=== PATIENT | male | born 1945 | race Caucasian/White ===

== ENCOUNTER 2022-11-26 20:14 | Emergency (ER) | payer MEDICARE ==
[~2022-11-26] VITALS: Ht 180.3 cm; Wt 86.4 kg
[~2022-11-26 20:14] MED LIST: HYDR-3927 PO; LISI10TA27 PO; LITH300C PO; METO-395 PO; MIRT-87 PO; NALT50TA PO; OLAN2.5T28 PO; OMEP40CA21 PO; PARO10TA4 PO; THIA100T66 PO; VENL150C58 PO; VENL37.55 PO
--- NOTE | 2022-11-26 22:33 | NUR ---
pt stated suicidal thoughts. pt's significant other at bedside with pt.
[2022-11-26] MEDS ORDERED: LORA-269 PO (23:07)
[2022-11-26] MEDS: LORazepam 1 MG tablet PO ONE ×2 (23:16→23:33)
[2022-11-26] MEDS ORDERED: LORazepam 0.5 MG tablet PO PRN (23:30)
[2022-11-26 23:38] VITALS: BP 127/100
== END 2022-11-26 23:40 | disposition home or self-care (01) ==
LOC: ER 20:15
DX: F10.930 Alcohol use, unspecified with withdrawal, uncomplicated (principal); Z79.899 Other long term (current) drug therapy; Z79.1 Long term (current) use of non-steroidal anti-inflammatories (NSAID); Z79.2 Long term (current) use of antibiotics
CPT/HCPCS: 99283

== ENCOUNTER 2022-12-20 07:03 | Emergency (ER) | payer MEDICARE ==
[~2022-12-20] VITALS: Ht 177.8 cm; Wt 87.0 kg
[~2022-12-20 07:03] MED LIST changes: +LORA-269 PO
[2022-12-20 08:08] LABS: BASOPHILS % (AUTO) 0.8 % (0-1); EOSINOPHILS # (AUTO) 0.1 X10'3 (0-0.9); EOSINOPHILS % (AUTO) 2.6 % (0-6); HEMATOCRIT 37.8 % (42.0-52.0); HEMOGLOBIN 12.3 g/dl (14.0-17.9); LYMPHOCYTES # (AUTO) 1.7 X10'3 (1.1-4.8); LYMPHOCYTES % (AUTO) 33.2 % (21-51); MEAN CORPUSCULAR HEMOGLOBIN 31.5 PG (27.0-31.0); MEAN CORPUSCULAR HGB CONC 32.6 g/dL (33.0-36.5); MEAN CORPUSCULAR VOLUME 96.6 FL (78-98); MONOCYTES # (AUTO) 0.5 X10'3 (0-0.9); NEUTROPHILS # (AUTO) 2.7 X10'3 (1.8-7.7); NEUTROPHILS % (AUTO) 53.4 % (42-75); PLATELET COUNT 202 X10'3 (140-440); RED BLOOD COUNT 3.92 X10'6 (4.70-6.10); RED CELL DISTRIBUTION WIDTH 16.5 % (11.5-14.5); WHITE BLOOD COUNT 5.1 X10'3 (4.5-11.0)
[2022-12-20 08:24] LABS: ALANINE AMINOTRANSFERASE 35 U/L (12-78); ALBUMIN 3.6 G/DL (3.4-5.0); ALBUMIN/GLOBULIN RATIO 1.2 (1.1-1.5); ALKALINE PHOSPHATASE 102 IU/L (46-116); ANION GAP 7 (8-16); ASPARTATE AMINO TRANSFERASE 25 U/L (10-37); BILIRUBIN,TOTAL 0.2 MG/DL (0.1-1.0); BLOOD UREA NITROGEN 15 MG/DL (7-18); BUN/CREATININE RATIO 15.3 (10.0-20.0); CALCIUM 9.7 MG/DL (8.5-10.1); CHLORIDE 106 MMOL/L (99-107); CREATININE 0.98 MG/DL (0.60-1.10); GLUCOSE 106 MG/DL (70-104); POTASSIUM 4.1 MMOL/L (3.5-5.1); SODIUM 139 MMOL/L (135-145); TOTAL CARBON DIOXIDE 26.1 MMOL/L (24-32); TOTAL PROTEIN 6.7 G/DL (6.4-8.2); eGFR 74 ML/MIN
[2022-12-20] MEDS ORDERED: acetaminophen 1,000mg/100ml IV 100 ML IV SCH (08:25)
[2022-12-20 09:09] VITALS: BP 131/83
== END 2022-12-20 09:12 | disposition home or self-care (01) ==
LOC: ER 07:04
DX: S80.01XA Contusion of right knee, initial encounter (principal); S09.8XXA Other specified injuries of head, initial encounter; F31.9 Bipolar disorder, unspecified; W19.XXXA Unspecified fall, initial encounter; Y93.89 Activity, other specified; Y92.89 Other specified places as the place of occurrence of the external cause; Y99.8 Other external cause status
CPT/HCPCS: 36415; 70450; 71045; 72125; 73560; 80053; 83880; 84484; 85025; 93005; 96374; 99285; J0131

== ENCOUNTER 2022-12-21 07:22 | Emergency (ER) | payer MEDICARE ==
[~2022-12-21] VITALS: Ht 177.8 cm; Wt 80.0 kg
[2022-12-21 07:57] LABS: BASOPHILS % (AUTO) 0.4 % (0-1); EOSINOPHILS # (AUTO) 0.1 X10'3 (0-0.9); EOSINOPHILS % (AUTO) 0.8 % (0-6); HEMOGLOBIN 13.6 g/dl (14.0-17.9); LYMPHOCYTES # (AUTO) 1.4 X10'3 (1.1-4.8); LYMPHOCYTES % (AUTO) 17.8 % (21-51); MEAN CORPUSCULAR HEMOGLOBIN 31.8 PG (27.0-31.0); MEAN CORPUSCULAR HGB CONC 33.1 g/dL (33.0-36.5); MEAN PLATELET VOLUME 8.4 FL (7.4-10.4); MONOCYTES # (AUTO) 0.5 X10'3 (0-0.9); MONOCYTES % (AUTO) 6.1 % (2-12); NEUTROPHILS # (AUTO) 5.9 X10'3 (1.8-7.7); NEUTROPHILS % (AUTO) 74.9 % (42-75); PLATELET COUNT 212 X10'3 (140-440); RED BLOOD COUNT 4.26 X10'6 (4.70-6.10); RED CELL DISTRIBUTION WIDTH 16.7 % (11.5-14.5); WHITE BLOOD COUNT 7.9 X10'3 (4.5-11.0)
[2022-12-21] MEDS ORDERED: acetaminophen 1,000mg/100ml IV 100 ML IV ONE (08:00)
[2022-12-21] MEDS ORDERED: ondansetron/PF 4mg/2ml inj IV ONE (08:00)
[2022-12-21] MEDS ORDERED: normal saline 1000ML IV soln IVB ONE (08:00)
--- NOTE | 2022-12-21 08:11 | NUR ---
Attempted to put an IV, no succes at this time
[2022-12-21 08:23] LABS: ALANINE AMINOTRANSFERASE 35 U/L (12-78); ALBUMIN 3.9 G/DL (3.4-5.0); ALBUMIN/GLOBULIN RATIO 1.1 (1.1-1.5); ALKALINE PHOSPHATASE 108 IU/L (46-116); ANION GAP 9 (8-16); ASPARTATE AMINO TRANSFERASE 22 U/L (10-37); BILIRUBIN,TOTAL 0.5 MG/DL (0.1-1.0); BLOOD UREA NITROGEN 12 MG/DL (7-18); BUN/CREATININE RATIO 12.2 (10.0-20.0); CALCIUM 9.9 MG/DL (8.5-10.1); CHLORIDE 103 MMOL/L (99-107); CREATININE 0.98 MG/DL (0.60-1.10); GLUCOSE 108 MG/DL (70-104); MAGNESIUM 2.1 MG/DL (1.5-2.4); POTASSIUM 4.3 MMOL/L (3.5-5.1); SODIUM 139 MMOL/L (135-145); TOTAL CARBON DIOXIDE 26.6 MMOL/L (24-32); TOTAL PROTEIN 7.3 G/DL (6.4-8.2); eGFR 74 ML/MIN
--- NOTE | 2022-12-21 08:25 | NUR ---
BP elevated, reported to Dr. Kate. Addendum: 12/21/22 at 0833 by BALDO [address] Kate if we are going to have head CT done, he has not cofirmed it to me.
--- NOTE | 2022-12-21 08:39 | NUR ---
Patient reported dizziness, still has headache, and nausea. Zofran IV and Tylenol IV given. Dr. Kate were notified about these. I also lt him know again that BP reading has been high. No new order received at this time.
[2022-12-21] MEDS ORDERED: ketorolac trometh. 30mg/ml inj. IV ONE (09:30)
[2022-12-21 10:08] LABS: CLARITY,URINE CLEAR (Clear); COLOR,URINE YELLOW (Yellow); GLUCOSE, URINE NEGATIVE (Neg); KETONES,URINE NEGATIVE (Neg); LEUKOCYTE ESTERASE ,URINE NEGATIVE (Neg); NITRITES, URINE NEGATIVE (Neg); OCCULT BLOOD,URINE NEGATIVE (Neg); PH,URINE 7.5 (4.8-8.0); PROTEIN,URINE NEGATIVE (Neg); UROBILINOGEN,URINE 0.2 E.U/dL (0.2-1.0)
[2022-12-21 10:09] LABS: UA COLLECTION TYPE NON-SPECIFIED
[2022-12-21 10:53] VITALS: BP 155/104
== END 2022-12-21 10:55 | disposition home or self-care (01) ==
LOC: ER 07:22
DX: R51.9 Headache, unspecified (principal); F31.9 Bipolar disorder, unspecified; Z79.899 Other long term (current) drug therapy; W19.XXXA Unspecified fall, initial encounter; Y93.89 Activity, other specified; Y92.89 Other specified places as the place of occurrence of the external cause; Y99.8 Other external cause status
CPT/HCPCS: 36415; 71045; 80053; 81003; 83735; 83880; 84145; 84484; 85025; 93005; 96374; 96375; 99285; J0131; J1885; J2405; J7030; A4615

== ENCOUNTER 2022-12-26 | Inpatient (IN) | payer MEDICARE ==
[~2022-12-26] VITALS: Ht 167.6 cm; Wt 89.1 kg
[~2022-12-26] MED LIST changes: +CHLO25CA10 PO
--- NOTE | 2022-12-26 00:30 | NUR ---
pt unable to participate in assessments due to current state of ETOH intoxication.
[2022-12-26 01:08] LABS: ALANINE AMINOTRANSFERASE 33 U/L (12-78); ALBUMIN 3.5 G/DL (3.4-5.0); ALBUMIN/GLOBULIN RATIO 1.2 (1.1-1.5); ALKALINE PHOSPHATASE 98 IU/L (46-116); ANION GAP 9 (8-16); ASPARTATE AMINO TRANSFERASE 19 U/L (10-37); BILIRUBIN,TOTAL 0.3 MG/DL (0.1-1.0); BLOOD UREA NITROGEN 15 MG/DL (7-18); BUN/CREATININE RATIO 15.5 (10.0-20.0); CALCIUM 8.8 MG/DL (8.5-10.1); CHLORIDE 110 MMOL/L (99-107); CREATININE 0.97 MG/DL (0.60-1.10); GLUCOSE 113 MG/DL (70-104); POTASSIUM 3.2 MMOL/L (3.5-5.1); SODIUM 146 MMOL/L (135-145); TOTAL CARBON DIOXIDE 26.7 MMOL/L (24-32); TOTAL PROTEIN 6.4 G/DL (6.4-8.2); eGFR 75 ML/MIN
[2022-12-26 01:16] LABS: BASOPHILS % (AUTO) 0.5 % (0-1); EOSINOPHILS % (AUTO) 0.4 % (0-6); HEMATOCRIT 37.4 % (42.0-52.0); HEMOGLOBIN 12.3 g/dl (14.0-17.9); LYMPHOCYTES # (AUTO) 1.9 X10'3 (1.1-4.8); LYMPHOCYTES % (AUTO) 38.5 % (21-51); MEAN CORPUSCULAR HEMOGLOBIN 31.6 PG (27.0-31.0); MEAN CORPUSCULAR HGB CONC 32.9 g/dL (33.0-36.5); MEAN PLATELET VOLUME 8.1 FL (7.4-10.4); MONOCYTES # (AUTO) 0.4 X10'3 (0-0.9); MONOCYTES % (AUTO) 9.2 % (2-12); NEUTROPHILS # (AUTO) 2.5 X10'3 (1.8-7.7); NEUTROPHILS % (AUTO) 51.4 % (42-75); PLATELET COUNT 171 X10'3 (140-440); RED CELL DISTRIBUTION WIDTH 16.6 % (11.5-14.5); WHITE BLOOD COUNT 4.8 X10'3 (4.5-11.0)
[2022-12-26 01:17] LABS: ETHANOL 0.132 GM/DL (0.0-0.010)
[2022-12-26] MEDS ORDERED: chlordiazePOXIDE 25mg capsule PO ONE ×2 (02:30→11:20)
[2022-12-26] MEDS ORDERED: ondansetron 4mg rapidly disintigrating tab PO STA (02:39)
[2022-12-26] MEDS ORDERED: POTASSIUM BICARB 20meq eff tab 20 MEQ TABLET.EFF PO ONE (05:55)
[2022-12-26 06:04] LABS: CLARITY,URINE CLOUDY (Clear); COLOR,URINE YELLOW (Yellow); GLUCOSE, URINE NEGATIVE (Neg); KETONES,URINE NEGATIVE (Neg); LEUKOCYTE ESTERASE ,URINE NEGATIVE (Neg); NITRITES, URINE POSITIVE (Neg); OCCULT BLOOD,URINE TRACE-INTACT (Neg); PROTEIN,URINE TRACE mg/dl (Neg); UROBILINOGEN,URINE 0.2 E.U/dL (0.2-1.0)
[2022-12-26 06:20] LABS: URINE AMPHETAMINE SCREEN NEGATIVE (Neg); URINE BARBITUATE SCREEN NEGATIVE (Neg); URINE BENZODIAZEPINES SCREEN POSITIVE (Neg); URINE CANNABINOID SCREEN NEGATIVE (Neg); URINE COCAINE SCREEN NEGATIVE (Neg); URINE METHADONE SCREEN NEGATIVE (Neg); URINE OPIATE SCREEN NEGATIVE (Neg); URINE PHENCYCLIDINE SCREEN NEGATIVE (Neg)
[2022-12-26 06:34] LABS: UA COLLECTION TYPE URINAL
[2022-12-26 06:36] LABS: BACTERIA,URINE 4+ /HPF (Neg); MUCUS STRANDS MANY /LPF (Neg); SQUAMOUS EPITHELIAL CELL,UR FEW /LPF (FEW)
[2022-12-26 06:38] LABS: CAL OXALATE CRYSTALS 3+ /HPF (NEGATIVE)
--- NOTE | 2022-12-26 06:44 | NUR ---
RN WILL COMPLETE COVID TEST AND GET RESULT PRIOR TO TRANFERRING PT TO OVERFLOW.
[2022-12-26] MEDS: lithium carbonate 150mg capsule PO SCH ×3 (07:18→20:10)
[2022-12-26] MEDS: pantoprazole 40mg Tablet.DR PO SCH (07:23)
[2022-12-26] MEDS: thiamine 100mg tablet PO SCH (07:24)
[2022-12-26] MEDS: venlafaxine XR 75mg capsule (Q24H) PO SCH (07:24)
[2022-12-26] MEDS: hydrOXYzine 25 MG tablet PO SCH ×3 (07:24→20:11)
[2022-12-26] MEDS: metoprolol succinate 25mg (24-HOUR) SR. Tablet PO SCH (07:25)
[2022-12-26] MEDS: lisinopril 10 MG tablet PO SCH (07:25)
--- NOTE | 2022-12-26 07:26 | NUR ---
RN UNABLE TO SCAN MEDS D/T WOW OUT OF POWER. WOW CHARGED. MEDS SCANNED MANUALLY. PT IS MENTAL [facility]ALTH 5150.
--- NOTE | 2022-12-26 07:31 | NUR ---
RN NOTIFIED NEGRO AND WILL TRANSFER PT TO [facility]FLOW AT THIS TIME.
--- NOTE | 2022-12-26 07:35 | NUR ---
Recieved pt. from ER and transfered to Bed 26. Pt. is ambulatory, no s/sx of distress.
[2022-12-26] MEDS: PARoxetine 10mg tablet PO SCH (08:43)
[2022-12-26] MEDS: venlafaxine XR 37.5mg cap (Q24H) PO SCH (08:44)
--- NOTE | 2022-12-26 09:00 | NUR ---
Pt. c/o nausea, had an incontinent episode of urine. N.O recieved Zofran PO.
[2022-12-26] MEDS ORDERED: ondansetron 4mg rapidly disintigrating tab PO PRN (09:05)
--- NOTE | 2022-12-26 09:15 | NUR ---
Pt. found to have tremors BUE, recieved rerport that pt. has Hx od DT. Provider notified, CWA initiated.
--- NOTE | 2022-12-26 11:00 | NUR ---
Pt. awake CWA continues, pt. reports diarrhea, provider pending.
--- NOTE | 2022-12-26 11:30 | NUR ---
N.O recieved Librium based on CWA scores and Keflex recieved for UTI, lithium labs to be drawn.
--- NOTE | 2022-12-26 12:02 | NUR ---
Spoke to provider, staff to review BM, pt. advised, and hat in place.
[2022-12-26] MEDS: cephalexin 500mg capsule PO SCH ×2 (12:03→20:10)
--- NOTE | 2022-12-26 14:34 | NUR ---
Pt. in bed resting with hisa eyes open, CWA continues, scant loose BM. No distress noted.
--- NOTE | 2022-12-26 15:57 | NUR ---
Pt. standing near bed, no distress noted, CWA continues, he was given a snack.
--- NOTE | 2022-12-26 17:45 | NUR ---
Pt. resting, CWA continues, states "I feel a little better" [facility]
--- NOTE | 2022-12-26 19:04 | NUR ---
Patient is oriented to person and place not time, he does not know much about his situation. Patient at 95 percent of his meal. Generalized abdominal discomfort. Diarrhea earlier, none now. Patient is cooperative. He denies S/I, H/I or any hallucinations.
[2022-12-26] MEDS: mirtazapine 15mg tablet PO SCH (20:10)
[2022-12-26] MEDS: OLANZapine 2.5MG tablet PO SCH (20:11)
--- NOTE | 2022-12-26 20:15 | NUR ---
Patient is awake, good color. W/D. He remains mildly delusiona. Patient believes that he is to be transported to [facility]. At this time there is no plan for admission there.
[2022-12-26] MEDS: naltrexone 50mg tablet PO SCH (20:22)
--- NOTE | 2022-12-26 21:30 | NUR ---
Patient is sleeping quietly no distress noted. W/D, good color. No alcohol withdrawl noted. When patient awakens this communications writer will continue with alcohol withdrawl eval sheet.
--- NOTE | 2022-12-26 22:27 | NUR ---
Patient is sleeping in a low fowlers position with his knees flexed. No distress noted.
--- NOTE | 2022-12-26 23:21 | NUR ---
Patient awoke, made his bed, he then returned to sleep.
--- NOTE | 2022-12-27 00:31 | NUR ---
Patient awakens, he is reoriented to place and situation. Patient requested a snack, this will be given.
[2022-12-27] MEDS ORDERED: chlordiazePOXIDE 25mg capsule PO ONE (01:30)
--- NOTE | 2022-12-27 01:30 | NUR ---
Patient is restless, can't sleep. PO Librium 50 mg ordered.
--- NOTE | 2022-12-27 02:46 | NUR ---
Patient is laying in bed now. Awake, no distress.
--- NOTE | 2022-12-27 03:17 | NUR ---
Patient was up to bathroom. Back to bed without redirection.
--- NOTE | 2022-12-27 04:15 | NUR ---
Patient is awake and well oriented now. Patient tells this press writer that he has recently been in a manic phase, he self medicated with alcohol and became suicidal. He is linear at the time of this interview. Patient states he hopes to be admited to Behavioral Health at [facility].
--- NOTE | 2022-12-27 05:06 | NUR ---
This senior underwriter spoke with Dr. Cantu, ER/MD. She agrees it is ok to stop Alcohol Withdrawl Assessment. If patient develops alcohol withdrawl symptoms advise ER .
--- NOTE | 2022-12-27 05:59 | NUR ---
Patient is sleeping quietly. No distress.
--- NOTE | 2022-12-27 07:00 | NUR ---
Pt. awake and ambulating without difficulty, no complaints.
[2022-12-27] MEDS: cephalexin 500mg capsule PO SCH ×2 (07:39→20:18)
[2022-12-27] MEDS: metoprolol succinate 25mg (24-HOUR) SR. Tablet PO SCH (07:40)
[2022-12-27] MEDS: venlafaxine XR 75mg capsule (Q24H) PO SCH (07:41)
[2022-12-27] MEDS: lithium carbonate 150mg capsule PO SCH ×2 (07:41→20:18)
[2022-12-27] MEDS: venlafaxine XR 37.5mg cap (Q24H) PO SCH (07:41)
[2022-12-27] MEDS: thiamine 100mg tablet PO SCH (07:41)
[2022-12-27] MEDS: PARoxetine 10mg tablet PO SCH (07:42)
[2022-12-27] MEDS: pantoprazole 40mg Tablet.DR PO SCH (07:42)
[2022-12-27] MEDS: lisinopril 10 MG tablet PO SCH (07:42)
[2022-12-27] MEDS: hydrOXYzine 25 MG tablet PO SCH ×3 (07:42→20:18)
--- NOTE | 2022-12-27 09:00 | NUR ---
Pt. awake and ambulating around the unit, no distress noted.
--- NOTE | 2022-12-27 11:01 | NUR ---
Pt. asleep and resting on his Lt. side, no distress noted.
--- NOTE | 2022-12-27 12:55 | NUR ---
Pt. awake and walking around the unit. Pt. advised he was accepted for placement.
--- NOTE | 2022-12-27 16:20 | NUR ---
Pt. transfered to [facility] with all personal belongings accounted for and sent with pt. Pt. left the unit at 1620 via with staff.
--- NOTE | 2022-12-27 16:25 | NUR ---
Admission Note: Pt. was transferred to the unit from [facility] in a wheelchair accompanied by staff and security. Pt's belongings were inventoried by [email or web address] and a safety check was completed. A two RN skin check was completed, and pt. presents with some bruising on his bilateral arms, however no open areas or wounds were observed. Pt. showered and re-dressed in clean scrubs, however required some assistance from staff r/t unsteadiness on his feet. A yellow fall band was placed on pt, he had a recent fall and hit his head approximately one week ago. Pt. is on a 5150 for DTS. Per 5150: Pt's called 911 and reported the he was making suicidal statements and held an air soft gun to his chin. Pt. was placed on [employer] Assessment monitoring r/t a history of alcohol withdrawal s/s. His last drink was two days ago and pt. reports he usually drinks one-half pint of karie twice a week. Pt. is currently being treated for a UTI.
[2022-12-27] MEDS ORDERED: acetaminophen 325mg tablet PO PRN ×2 (16:45)
[2022-12-27] MEDS ORDERED: mag hydrox/Alum hydrox/simeth 30ml oral suspension PO PRN (16:45)
[2022-12-27] MEDS ORDERED: loperamide 2mg capsule PO PRN (16:45)
[2022-12-27] MEDS ORDERED: magnesium hydroxide 30ml (MOM) UD suspension PO PRN (16:45)
[2022-12-27 16:59] VITALS: BP 161/82
--- NOTE | 2022-12-27 18:15 | NUR ---
Per Dr. Victoria, CIWA Assessment is to be completed only one-time per shift as pt. scored a two on his initial assessment, endorsed to Noc shift. Also, pt. scored as a high risk on the [place] Suicide Risk Assessment, however he is able to contract for safety on the unit and Q 15min safety checks were ordered by Dr. Victoria.
[2022-12-27 19:00] VITALS: BP 141/79
[2022-12-27] MEDS: OLANZapine 2.5MG tablet PO SCH (20:18)
[2022-12-27] MEDS: mirtazapine 15mg tablet PO SCH (20:19)
[2022-12-27] MEDS: naltrexone 50mg tablet PO SCH (20:20)
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
[2022-12-28 08:00] VITALS: BP 125/78
[2022-12-28 08:11] LABS: HEMOGLOBIN A1C 5.8 % (4.5-6.2)
[2022-12-28 08:39] LABS: CHOL/HDL RATIO 3.3 (0.00-4.99); CHOLESTEROL 170 MG/DL (0-200); HDL CHOLESTEROL 52 MG/DL (35-60); LDL CHOLESTEROL 90 MG/DL (50-100); TRIGLYCERIDES 191 MG/DL (20-135)
[2022-12-28] MEDS: cephalexin 500mg capsule PO SCH ×2 (08:58→20:35)
[2022-12-28] MEDS: pantoprazole 40mg Tablet.DR PO SCH (08:58)
[2022-12-28] MEDS: venlafaxine XR 37.5mg cap (Q24H) PO SCH ×2 (08:58→09:12)
[2022-12-28] MEDS: hydrOXYzine 25 MG tablet PO SCH ×3 (08:58→20:35)
[2022-12-28] MEDS: venlafaxine XR 75mg capsule (Q24H) PO SCH (08:58)
[2022-12-28] MEDS: metoprolol succinate 25mg (24-HOUR) SR. Tablet PO SCH (08:59)
[2022-12-28] MEDS: PARoxetine 10mg tablet PO SCH (08:59)
[2022-12-28] MEDS: thiamine 100mg tablet PO SCH (08:59)
[2022-12-28] MEDS: lisinopril 10 MG tablet PO SCH (08:59)
[2022-12-28] MEDS: lithium carbonate 150mg capsule PO SCH ×2 (08:59→20:35)
[2022-12-28] MEDS ORDERED: OLANZAPINE 5 MG TABLET PO PRN (15:15)
[2022-12-28] MEDS ORDERED: hydrOXYzine 25 MG tablet PO PRN (15:15)
--- NOTE | 2022-12-28 15:59 | NUR ---
Nursing Progress Note: Problem : Pt. was transferred to the unit from [facility]. Pt. is on a 5150 for DTS. Per 5150: Pt's called 911 and reported the he was making suicidal statements and held an air soft gun to his chin. Pt. was placed on CIWA Assessment monitoring r/t a history of alcohol withdrawal s/s. His last drink was two days ago and pt. reports he usually drinks one-half pint of karie twice a week. Pt. is currently being treated for a UTI. Interventions : Maintained a safe and supportive environment, ensured contract for safety, provided clear and simple instructions, monitored for confusion and provided reorientation as needed, maintained fall precautions, and maintained Q 15min safety checks. Response : Received pt. sleeping in bed at the beginning of the shift, he was awoken and required direction in order to attend breakfast in the Group Room. After breakfast, pt. remained up in the Group Room watching TV with others, however it was noted that he kept falling asleep while sitting up in the chair. Pt. finally retreated back to his room and was able to nap, per sleep hours he only slept approximately four hours last night. This sql report writer completed ordered CIWA Assessment and pt. does not appear to be exhibiting any alcohol withdrawal s/s. Pt. does present with some confusion and intermittently wanders throughout the day, forgetting where his room is, and requiring redirection with effectiveness. 1:1 was completed later at bedside, pt. denies any current S/I, H/I, A/V/GODDARD, and no delusional statements were made. He does endorse some anxiety, and upon further questioning reports that it is related to the recent stressors in his life. Pt. was observed to be interacting appropriately with others in the Group Room and napping intermittently during the shift. Fall precautions remain in place. Plan : Pt. requires interruption of current crisis and a safe and supportive environment.
[2022-12-28 19:26] VITALS: BP 111/71
[2022-12-28] MEDS: OLANZapine 2.5MG tablet PO SCH (20:35)
[2022-12-28] MEDS: mirtazapine 15mg tablet PO SCH (20:36)
[2022-12-28] MEDS: naltrexone 50mg tablet PO SCH (20:36)
--- NOTE | 2022-12-28 23:41 | NUR ---
Nursing Progress Note: Problem : Pt. was transferred to the unit from ER [facility]. Pt. is on a 5150 for DTS. Per 5150: Pt's called 911 and reported the he was making suicidal statements and held an air soft gun to his chin. Pt. was placed on CIWA Assessment monitoring r/t a history of alcohol withdrawal s/s. His last drink was two days ago and pt. reports he usually drinks one-half pint of karie twice a week. Pt. is currently being treated for a UTI. Interventions : Maintained a safe and supportive environment, ensured contract for safety, provided clear and simple instructions, monitored for confusion and provided reorientation as needed, maintained fall precautions, and maintained Q 15min safety checks. Response : Pt was sitting in group room at change of shift with his roommate. Pt denies s/i, but seems confused. pt was placed on 14 day hold tonight and process was explained. Pt remained in group room watching tv, socializing with roommate before going to bed. Pt reports having difficulty sleeping and became somewhat agitated. Was given prn zyprexa. Pt was then looking for his glasses when he had 3 pair sitting on his night stand next to him. Pt was oriented and provided with his eye mask and went back to sleep. Plan : Pt. requires interruption of current crisis and a safe and supportive environment.
[2022-12-29 08:00] VITALS: BP 113/71
[2022-12-29] MEDS: lithium carbonate 150mg capsule PO SCH ×2 (08:17→20:16)
[2022-12-29] MEDS: cephalexin 500mg capsule PO SCH ×2 (08:18→20:16)
[2022-12-29] MEDS: thiamine 100mg tablet PO SCH (08:18)
[2022-12-29] MEDS: venlafaxine XR 37.5mg cap (Q24H) PO SCH (08:18)
[2022-12-29] MEDS: pantoprazole 40mg Tablet.DR PO SCH (08:18)
[2022-12-29] MEDS: venlafaxine XR 75mg capsule (Q24H) PO SCH (08:18)
[2022-12-29] MEDS: lisinopril 10 MG tablet PO SCH (08:19)
[2022-12-29] MEDS: PARoxetine 10mg tablet PO SCH (08:19)
[2022-12-29] MEDS: hydrOXYzine 25 MG tablet PO SCH ×3 (08:19→20:16)
[2022-12-29] MEDS: metoprolol succinate 25mg (24-HOUR) SR. Tablet PO SCH (08:19)
--- NOTE | 2022-12-29 13:34 | NUR ---
5250 upheld for DTS
--- NOTE | 2022-12-29 16:51 | NUR ---
Nursing Progress Note: Tito Problem :Pt. is on a 5150 for DTS. Per 5150: Pt's called 911 and reported the he was making suicidal statements and held an air soft gun to his chin. Pt. was placed on [facility] Assessment monitoring r/t a history of alcohol withdrawal s/s. His last drink was two days ago and pt. reports he usually drinks one-half pint of karie twice a week. Pt. is currently being treated for a UTI. Interventions : Maintained a safe and supportive environment, ensured contract for safety, provided clear and simple instructions, monitored for confusion and provided reorientation as needed, maintained fall precautions, and maintained Q 15min safety checks. Response : Pt. received awake and ambulating with stooped gait. Pt. denies SI, HI, AH, VH and reports he wants to go to a treatment center. CWA completed with a score of 4, he endorses anxiety always He is pleasant, takes his medications without hesitation, and has some level of confusion. Pt. continues on PO ABX Keflex for UTI; he denies dysuria, but states his urine is not right this copywriter found his urine to be concentrated with some odor, Pt. denies GI upset, diarrhea. Pt. spent most of the shift wandering around with some confusion, at around 1600 the alarms sounded as pt. was attempting to use the emergency exit in his attempt to leave the community room he denies wanting to leave the unit. Plan : Pt. requires interruption of current crisis and a safe and supportive environment.
--- NOTE | 2022-12-29 17:50 | NUR ---
SALES PROMOTER documentation: I have reviewed and agree with all interventions, assessments performed and documented by BANDAR James.
[2022-12-29] MEDS: OLANZapine 2.5MG tablet PO SCH (20:16)
[2022-12-29] MEDS: mirtazapine 15mg tablet PO SCH (20:16)
[2022-12-29 20:28] VITALS: BP 110/67
[2022-12-29] MEDS: naltrexone 50mg tablet PO SCH (20:34)
--- NOTE | 2022-12-29 23:04 | NUR ---
Nursing Progress Note: Tito Problem :Pt. is on a 5150 for DTS. Per 5150: Pt's called 911 and reported the he was making suicidal statements and held an air soft gun to his chin. Pt. was placed on [employer] Assessment monitoring r/t a history of alcohol withdrawal s/s. His last drink was two days ago and pt. reports he usually drinks one-half pint of karie twice a week. Pt. is currently being treated for a UTI. Interventions : Maintained a safe and supportive environment, ensured contract for safety, provided clear and simple instructions, monitored for confusion and provided reorientation as needed, maintained fall precautions, and maintained Q 15min safety checks. Response : Pt was in the hallway at change of shift, asking when he would be leaving and when his hearing is? Pt was told he already had a hearing and that he is not leaving tonight. Pt seemed to understand and walked away. Pt spent time in his room napping for short amounts of time and spent some time in the group room. Around snack time pt was being yelled at by another patient and staff intervened and pts were both redirected. Pt became somewhat agitated with other patient and stated he was fearful and wanted to go home. Pt went into his room to lay down. Pt then refused HS meds stating "You take them!" Pt fell asleep briefly then came out of his room and appeared to be looking for ways to leave the department. Pt appears to be confused. Pt was offered HS meds which he took. Pt asked for assistance to call his and was assisted with contacting his before going to bed. Plan : Pt. requires interruption of current crisis and a safe and supportive environment. Addendum: 12/30/22 at 0208 by Camila Forde RN Pt is heavily sleeping but then wakes up and walks the halls in his underwear. Pt is redirected multiple times back to bed. Pt walked back into his room and was followed into his room and found down on the ground. No injuries were sustained. Pt got up and got back into bed. Pt went back to sleep.
[2022-12-29] MEDS ORDERED: LORazepam 0.5 MG tablet PO PRN (23:15)
[2022-12-30 07:54] LABS: ALBUMIN 3.6 G/DL (3.4-5.0); ANION GAP 8 (8-16); BLOOD UREA NITROGEN 14 MG/DL (7-18); BUN/CREATININE RATIO 12.6 (10.0-20.0); CALCIUM 10.2 MG/DL (8.5-10.1); CHLORIDE 107 MMOL/L (99-107); CREATININE 1.11 MG/DL (0.60-1.10); GLUCOSE 105 MG/DL (70-104); POTASSIUM 4.2 MMOL/L (3.5-5.1); SODIUM 143 MMOL/L (135-145); TOTAL CARBON DIOXIDE 27.6 MMOL/L (24-32); eGFR 64 ML/MIN
[2022-12-30 07:55] VITALS: BP 113/82
[2022-12-30 09:20] LABS: HBSAG SCREEN Negative (Negative); HEP B CORE AB, TOT Negative (Negative)
[2022-12-30] MEDS: thiamine 100mg tablet PO SCH (11:07)
[2022-12-30] MEDS: hydrOXYzine 25 MG tablet PO SCH ×3 (11:07→20:55)
[2022-12-30] MEDS: cephalexin 500mg capsule PO SCH ×2 (11:07→20:54)
[2022-12-30] MEDS: metoprolol succinate 25mg (24-HOUR) SR. Tablet PO SCH (11:08)
[2022-12-30] MEDS: pantoprazole 40mg Tablet.DR PO SCH (11:08)
[2022-12-30] MEDS: lisinopril 10 MG tablet PO SCH (11:08)
[2022-12-30] MEDS: lithium carbonate 150mg capsule PO SCH ×2 (11:09→20:54)
[2022-12-30] MEDS: venlafaxine XR 75mg capsule (Q24H) PO SCH (11:09)
--- NOTE | 2022-12-30 17:48 | NUR ---
NURSING PROGRESS NOTE: Problem : Pt. is on a 5150 for DTS. Per 5150: Pt's called 911 and reported the he was making suicidal statements and held an air soft gun to his chin. Pt. was placed on CICT Assessment monitoring r/t a history of alcohol withdrawal s/s. His last drink was two days ago and pt. reports he usually drinks one-half pint of karie twice a week. Pt. is currently being treated for a UTI. Interventions : Maintained a safe and supportive environment, ensured contract for safety, provided clear and simple instructions, monitored for confusion and provided reorientation as needed, maintained fall precautions, and maintained Q 15min safety checks. Response : Received patient sleeping at shift change. Received in report pt had a fall the previous shift. Dr Mayer agreed it was appropriate to place pt on LOS, since prior to admit he had fallen at home unrelated to ETOH. Pt presents confused, gave name, , month, president, however thought the year was 2005. Pt asked insurance underwriter sales I need to go home and get clothes, I have a dentist appointment. Pt was assisted to group room where he ate 90% of his breakfast. Dr. Mayer ordered labs, which were reviewed additional orders to increase pts water intake. Pt napped intermittently throughout shift, noted he stayed in group room a few hours after lunch. Pt asked about group, stating he wanted to attend. Pt denies SI, HI, A/VH. Pt says he came to ED for ETOH issues and not suicidal ideation. Pt reports at home he doesnt fall asleep until around 0200 and he usually watches movies on his I-Pad. Plan : Pt. requires interruption of current crisis and a safe and supportive environment. Addendum: 12/30/22 at 1750 by Hayley Avendaño RN CIWA SCORE 2. DR MAYER WANTS TO CONTINUE WITH KASI, WILL REEVALUATE TOMORROW. Addendum: 12/30/22 at 1805 by Hayley Avendaño RN MRI of the head has been ordered for fall 12/29/22 NOC shift.
[2022-12-30 19:16] VITALS: BP 105/71
[2022-12-30] MEDS: naltrexone 50mg tablet PO SCH (20:54)
[2022-12-30] MEDS: OLANZapine 2.5MG tablet PO SCH (20:54)
[2022-12-30] MEDS: mirtazapine 15mg tablet PO SCH (20:55)
[2022-12-30] MEDS ORDERED: LORazepam 2 mg/ml vial IV PRN (23:50)
[2022-12-30] MEDS ORDERED: LORazepam 1 MG tablet PO PRN (23:50)
--- NOTE | 2022-12-31 01:54 | NUR ---
NURSING PROGRESS NOTE: Problem : Pt. is on a 5150 for DTS. Per 5150: Pt's called 911 and reported the he was making suicidal statements and held an air soft gun to his chin. Pt. was placed on CIWA Assessment monitoring r/t a history of alcohol withdrawal s/s. His last drink was two days ago and pt. reports he usually drinks one-half pint of karie twice a week. Pt. is currently being treated for a UTI. Interventions : Maintained a safe and supportive environment, ensured contract for safety, provided clear and simple instructions, monitored for confusion and provided reorientation as needed, maintained fall precautions, and maintained Q 15min safety checks. Response : Pt was sitting quietly in the group room at change of shift. Pt using FWW to ambulate. Pt has sitter and is noted to be falling asleep periodically while sitting in his chair. Pt is calm and pleasant during interactions. CIWA score is 6. Pt has tremors when he holds out his hands and thinks it is Thursday when asked. Pt continues to ask about going home. Pt denies s/i. Pt remained in the group room sitting quietly before taking HS meds and going to bed. Pt appears to be resting comfortably sitter at bedside. Plan : Pt. requires interruption of current crisis and a safe and supportive environment.
[2022-12-31 07:55] VITALS: BP 92/46
[2022-12-31] MEDS: metoprolol succinate 25mg (24-HOUR) SR. Tablet PO SCH ×2 (08:00→08:29)
[2022-12-31 08:14] LABS: BASOPHILS % (AUTO) 0.4 % (0-1); EOSINOPHILS # (AUTO) 0.1 X10'3 (0-0.9); EOSINOPHILS % (AUTO) 1.6 % (0-6); HEMOGLOBIN 13.5 g/dl (14.0-17.9); LYMPHOCYTES % (AUTO) 33.7 % (21-51); MEAN CORPUSCULAR HEMOGLOBIN 31.8 PG (27.0-31.0); MEAN CORPUSCULAR HGB CONC 32.9 g/dL (33.0-36.5); MEAN CORPUSCULAR VOLUME 96.5 FL (78-98); MEAN PLATELET VOLUME 8.4 FL (7.4-10.4); MONOCYTES # (AUTO) 0.5 X10'3 (0-0.9); MONOCYTES % (AUTO) 7.7 % (2-12); NEUTROPHILS # (AUTO) 3.4 X10'3 (1.8-7.7); NEUTROPHILS % (AUTO) 56.6 % (42-75); PLATELET COUNT 172 X10'3 (140-440); RED BLOOD COUNT 4.25 X10'6 (4.70-6.10); RED CELL DISTRIBUTION WIDTH 16.3 % (11.5-14.5); WHITE BLOOD COUNT 5.9 X10'3 (4.5-11.0)
[2022-12-31 08:22] LABS: ALBUMIN 3.7 G/DL (3.4-5.0); ANION GAP 6 (8-16); BLOOD UREA NITROGEN 15 MG/DL (7-18); BUN/CREATININE RATIO 12.5 (10.0-20.0); CALCIUM 10.1 MG/DL (8.5-10.1); CHLORIDE 106 MMOL/L (99-107); GLUCOSE 103 MG/DL (70-104); MAGNESIUM 2.5 MG/DL (1.5-2.4); PHOSPHORUS 3.4 MG/DL (2.3-4.5); POTASSIUM 4.3 MMOL/L (3.5-5.1); SODIUM 142 MMOL/L (135-145); TOTAL CARBON DIOXIDE 30.3 MMOL/L (24-32); eGFR 59 ML/MIN
[2022-12-31] MEDS: thiamine 100mg tablet PO SCH (08:29)
[2022-12-31] MEDS: pantoprazole 40mg Tablet.DR PO SCH (08:29)
[2022-12-31] MEDS: cephalexin 500mg capsule PO SCH (08:29)
[2022-12-31] MEDS: multivitamins, therapeutics tablet PO SCH (08:29)
[2022-12-31] MEDS: hydrOXYzine 25 MG tablet PO SCH ×3 (08:29→21:00)
[2022-12-31] MEDS: venlafaxine XR 75mg capsule (Q24H) PO SCH (08:29)
[2022-12-31] MEDS: lisinopril 10 MG tablet PO SCH (08:35)
--- NOTE | 2022-12-31 09:00 | NUR ---
DISCONTINUE CIWA PER DR MENDOSA. MORNING CIWA SCORE 1. PT HAS ESSENTIAL TREMORS NOT R/T ETOH WITHDRAWAL.
--- NOTE | 2022-12-31 11:06 | NUR ---
Initial: Pt admit for EtOH intoxication and SI. Currently receiving routine Thiamine, Folic acid, and MVI. Pt on a regular diet with fluctuating PO intake however overall eating well with average 68% PO intake since admit meeting 100% estimated protein and energy needs. Unsure if pt is participating in snacks at this time. [facility] 12/27, with PRN bowel care available. D/w dietary to send prunes and prune juice with next meal to further assist with bowel regularity. Will continue to follow and monitor need for additional nutrition intervention. Recommendations: 1) Continue regular diet 2) Continue routine Thiamine, Folic acid, and MVI for EtOH hx 3) Monitor need for routine bowel care; utilize PRN bowel care 4) Weekly scaled weights Addendum: 12/31/22 at [address] Amended: Links added.
[2022-12-31] MEDS ORDERED: GADOTERATE MEGLUMINE 7.5 MMOL/15 ML VIAL IV ONE (15:43)
--- NOTE | 2022-12-31 17:47 | NUR ---
NURSING PROGRESS NOTE: Problem : Pt. is on a 5150 for DTS. Per 5150: Pt's called 911 and reported the he was making suicidal statements and held an air soft gun to his chin. Pt. was placed on CIWA Assessment monitoring r/t a history of alcohol withdrawal s/s. His last drink was two days ago and pt. reports he usually drinks one-half pint of karie twice a week. Pt. is currently being treated for a UTI. Interventions : Maintained a safe and supportive environment, ensured contract for safety, provided clear and simple instructions, monitored for confusion and provided reorientation as needed, warm compresses to infiltrated area of arm, maintained fall precautions, and maintained Q 15min safety checks. Response : Received patient sleeping at shift change. Pt slept 6.25 hours per sleep assessment. When pt woke pt he reported sleeping well. Pt is more alert this morning, however continues to c/o feeling dizzy. BP was 92/46, metoprolol was held. MRI of head was completed, however IV infiltrated. Dr. Mayer aware and will view the results. Pt is using his FWW and continues to be LOS until further notice. Pt attended and participated in group. Pt remained up the entire afternoon, sitting in group room watching T.V or talking with peers. 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 Plan : Pt. requires interruption of current crisis and a safe and supportive environment. Addendum: 12/31/22 at 1827 by Hayley Avendaño RN Continue to encourage fluids per Dr. Mayer. Pt consumed 800 mL of water, plus meal fluids.
[2022-12-31 19:43] VITALS: BP 122/70
[2022-12-31] MEDS: lactobacillus rhamnosus 10,000 MMU CELLS/CAPSULE PO SCH (20:00)
[2022-12-31] MEDS: naltrexone 50mg tablet PO SCH (21:00)
[2022-12-31] MEDS: mirtazapine 15mg tablet PO SCH (21:00)
[2022-12-31] MEDS: OLANZapine 2.5MG tablet PO SCH (21:00)
--- NOTE | 2023-01-01 00:03 | NUR ---
NURSING PROGRESS NOTE: Ttio Problem : Pt. is on a 5150 for DTS. Per 5150: Pt's called 911 and reported the he was making suicidal statements and held an air soft gun to his chin. Pt. was placed on CIWA Assessment monitoring r/t a history of alcohol withdrawal s/s. His last drink was two days ago and pt. reports he usually drinks one-half pint of karie twice a week. Pt. is currently being treated for a UTI. Interventions : Maintained a safe and supportive environment, ensured contract for safety, provided clear and simple instructions, monitored for confusion and provided reorientation as needed, maintained fall precautions, and maintained Q 15min safety checks. Response : Received Pt in bed resting w/o distress at the beginning of this shift. Pt is on LOS observation R/T a fall and continued fall risk. Pt is no longer on CIWA assessments. Pt was very cautious and guarded with this RN during assessment. He used bathroom multiple times this evening and continues to ambulate well with FWW. Pt denies SI at this time. He was resistive to communication and refused his HS meds after multiple attempts. He watched TV with others before going to bed. Plan : Pt. requires interruption of current crisis and a safe and supportive environment.
[2023-01-01 07:55] VITALS: BP 123/81
[2023-01-01 10:07] VITALS: BP 123/81
[2023-01-01] MEDS: pantoprazole 40mg Tablet.DR PO SCH (11:28)
[2023-01-01] MEDS: lactobacillus rhamnosus 10,000 MMU CELLS/CAPSULE PO SCH ×2 (11:28→19:52)
[2023-01-01] MEDS: metoprolol succinate 25mg (24-HOUR) SR. Tablet PO SCH (11:28)
[2023-01-01] MEDS: venlafaxine XR 75mg capsule (Q24H) PO SCH (11:28)
[2023-01-01] MEDS: thiamine 100mg tablet PO SCH (11:28)
[2023-01-01] MEDS: multivitamins, therapeutics tablet PO SCH (11:28)
[2023-01-01] MEDS: hydrOXYzine 25 MG tablet PO SCH ×3 (11:28→19:53)
[2023-01-01] MEDS: lisinopril 10 MG tablet PO SCH (11:28)
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
[2023-01-01] MEDS: naltrexone 50mg tablet PO SCH (19:52)
[2023-01-01] MEDS: OLANZapine 2.5MG tablet PO SCH (19:53)
[2023-01-01] MEDS: mirtazapine 15mg tablet PO SCH (19:53)
[2023-01-01 20:00] VITALS: BP 110/79
--- NOTE | 2023-01-02 05:37 | NUR ---
NURSING PROGRESS NOTE: Tito Problem: Pt. is on a 5150 for DTS. Per 5150: Pt's called 911 and reported the he was making suicidal statements and held an air soft gun to his chin. Pt. was placed on [facility] Assessment monitoring r/t a history of alcohol withdrawal s/s. His last drink was two days ago and pt. reports he usually drinks one-half pint of karie twice a week. Pt. is currently being treated for a UTI. Interventions: 1:1 assessment, therapeutic communication, active listening, provided clear and simple instructions, medication administration/education/monitoring, behavior monitoring and intervention as needed; provided distraction, direction, positive reinforcement, reality orientation, maintained a safe and supportive environment, and Q15 minute safety checks. Response: Received pt in hallway, he is line of sight. Pt asking for a phone to place a call. Sitter explained that when a phone is available he can make his call then. Pt was okay with this. No checking of doors or trying to AWOL this shift. Pt took his medications tonight without any prompting. Pt denies SI/HI/AVH. No withdrawal symptoms noted. Pt is guarded when answering questions. Pt went and watched the movie with other peers but seemed to keep to himself. Continue to monitor for safety. Plan: Pt. requires interruption of current crisis and a safe and supportive environment.
[2023-01-02 08:00] VITALS: BP 128/85
[2023-01-02] MEDS: multivitamins, therapeutics tablet PO SCH (08:04)
[2023-01-02] MEDS: venlafaxine XR 75mg capsule (Q24H) PO SCH (08:04)
[2023-01-02] MEDS: thiamine 100mg tablet PO SCH (08:04)
[2023-01-02] MEDS: pantoprazole 40mg Tablet.DR PO SCH (08:04)
[2023-01-02] MEDS: hydrOXYzine 25 MG tablet PO SCH ×3 (08:04→20:10)
[2023-01-02] MEDS: lactobacillus rhamnosus 10,000 MMU CELLS/CAPSULE PO SCH ×2 (08:04→20:10)
[2023-01-02] MEDS: lisinopril 10 MG tablet PO SCH (08:05)
[2023-01-02] MEDS: metoprolol succinate 25mg (24-HOUR) SR. Tablet PO SCH (08:05)
--- NOTE | 2023-01-02 17:34 | NUR ---
NURSING PROGRESS NOTE: Tito Problem: Pt. is on a 5150 for DTS. Per 5150: Pt's called 911 and reported the he was making suicidal statements and held an air soft gun to his chin. Pt. was placed on [facility] Assessment monitoring r/t a history of alcohol withdrawal s/s. His last drink was two days ago and pt. reports he usually drinks one-half pint of karie twice a week. Pt. is currently being treated for a UTI. Interventions: Therapeutic communication, active listening, providing safe and therapeutic environment, Medication administration/ education/ monitoring, monitoring behavior and intervening as needed, distraction interventions available, positive reinforcement, reality orientation, and Q15 min safety checks Response: Received pt in room. Pt is no longer on line of sight. Pt has no attempts to elope today. No door checking noted this shift. He has no falls today. Pt took his medications tonight without any prompting. Pt denies SI/HI/AVH. Pt verbalizes his challenge to overcome alcoholism. He stated his last alcoholic beverage was about a month ago. Pt desires more counseling. Pt utilizes his walker for ambulation. Pt engaging with peers during shift. Pt participated in group today. Continue to monitor for safety. Plan: Pt. requires interruption of current crisis and a safe and supportive environment.
[2023-01-02 20:00] VITALS: BP 111/65
[2023-01-02] MEDS: mirtazapine 15mg tablet PO SCH (20:09)
[2023-01-02] MEDS: naltrexone 50mg tablet PO SCH (20:10)
[2023-01-02] MEDS: OLANZapine 2.5MG tablet PO SCH (20:10)
--- NOTE | 2023-01-03 05:21 | NUR ---
Nursing Progress Note: Tito Problem: Pt. is on a 5150 for DTS. Per 5150: Pt's called 911 and reported the he was making suicidal statements and held an air soft gun to his chin. Pt. was placed on [facility] Assessment monitoring r/t a history of alcohol withdrawal s/s. His last drink was two days ago and pt. reports he usually drinks one-half pint of karie twice a week. Pt. is currently being treated for a UTI. Interventions: 1:1 assessment, therapeutic communication, active listening, provided clear and simple instructions, medication administration/education/monitoring, behavior monitoring and intervention as needed; provided distraction, direction, positive reinforcement, reality orientation, maintained a safe and supportive environment, and Q15 minute safety checks. Response: Received pt in day room where he is watching a movie with other peers. Pt is pleasant and cooperative. Pt denies SI/HI/AVH. Pt stated he doesnt feel the urgency today that he did yesterday to leave. No door checking today. There was a problem but my was able to take care of it herself. Pt is agreeable to staying and getting treatment. Pt uses FWW and has a steady gait. Pt is medication compliant tonight without prompting. Monitor for safety q15 minutes. Plan: Pt. requires interruption of current crisis and a safe and supportive environment.
[2023-01-03 08:00] VITALS: BP 121/85
[2023-01-03] MEDS: pantoprazole 40mg Tablet.DR PO SCH (08:26)
[2023-01-03] MEDS: multivitamins, therapeutics tablet PO SCH (08:26)
[2023-01-03] MEDS: thiamine 100mg tablet PO SCH (08:26)
[2023-01-03] MEDS: lactobacillus rhamnosus 10,000 MMU CELLS/CAPSULE PO SCH ×2 (08:26→20:30)
[2023-01-03] MEDS: metoprolol succinate 25mg (24-HOUR) SR. Tablet PO SCH (08:27)
[2023-01-03] MEDS: hydrOXYzine 25 MG tablet PO SCH ×3 (08:27→20:31)
[2023-01-03] MEDS: lisinopril 10 MG tablet PO SCH (08:27)
[2023-01-03] MEDS: venlafaxine XR 75mg capsule (Q24H) PO SCH (08:37)
--- NOTE | 2023-01-03 17:07 | NUR ---
NURSING PROGRESS NOTE: Tito Problem: Pt. is on a 5150 for DTS. Per 5150: Pt's called 911 and reported the he was making suicidal statements and held an air soft gun to his chin. Pt. was placed on [facility] Assessment monitoring r/t a history of alcohol withdrawal s/s. His last drink was two days ago and pt. reports he usually drinks one-half pint of karie twice a week. Pt. is currently being treated for a UTI. Interventions: Therapeutic communication, active listening, providing safe and therapeutic environment, Medication administration/ education/ monitoring, monitoring behavior and intervening as needed, distraction interventions available, positive reinforcement, reality orientation, and Q15 min safety checks Response: Received patient sleeping in bed and in no distress at change of shift. Pt woke for vitals and was cooperative and returned to sleep. He ate breakfast and lunch well and took AM meds w/o issue. Pt pleasant with staff and peers. Pt visited by this AM and interactions were pleasant. Pt remains w/o LOS and did not have any fall this shift. Pt denies SI/HI/AVHs or any MH SXs. Pt spent time in community room watching TV and interacted with others minimally. Plan: Pt. requires interruption of current crisis and a safe and supportive environment.
[2023-01-03 20:00] VITALS: BP 115/75
[2023-01-03] MEDS: naltrexone 50mg tablet PO SCH (20:31)
[2023-01-03] MEDS: mirtazapine 15mg tablet PO SCH (20:31)
[2023-01-03] MEDS: OLANZapine 2.5MG tablet PO SCH (20:31)
--- NOTE | 2023-01-04 04:05 | NUR ---
NURSING PROGRESS NOTE: Tito Problem: Pt. is on a 5150 for DTS. Per 5150: Pt's called 911 and reported the he was making suicidal statements and held an air soft gun to his chin. Pt. was placed on [facility] Assessment monitoring r/t a history of alcohol withdrawal s/s. His last drink was two days ago and pt. reports he usually drinks one-half pint of karie twice a week. Pt. is currently being treated for a UTI. Interventions: Therapeutic communication, active listening, providing safe and therapeutic environment, Medication administration/ education/ monitoring, monitoring behavior and intervening as needed, distraction interventions available, positive reinforcement, reality orientation, and Q15 min safety checks Response: Patient was observed sitting in community room at change of shift. Patient sat quietly very rarely speaking to others. Patient complained that he is taking to many medications but eventually took them. Patient participated in snack and then retuned to bed room. Patient continued to get up multiple times through out the night and pace the halls before again rerun to room. Patient was offered something to help him sleep but refused. Plan: Pt. requires interruption of current crisis and a safe and supportive environment.
[2023-01-04 08:00] VITALS: BP 118/77
[2023-01-04] MEDS: venlafaxine XR 75mg capsule (Q24H) PO SCH (08:26)
[2023-01-04] MEDS: lactobacillus rhamnosus 10,000 MMU CELLS/CAPSULE PO SCH ×2 (08:26→19:59)
[2023-01-04] MEDS: metoprolol succinate 25mg (24-HOUR) SR. Tablet PO SCH (08:26)
[2023-01-04] MEDS: multivitamins, therapeutics tablet PO SCH (08:26)
[2023-01-04] MEDS: hydrOXYzine 25 MG tablet PO SCH ×3 (08:26→19:59)
[2023-01-04] MEDS: pantoprazole 40mg Tablet.DR PO SCH (08:26)
[2023-01-04] MEDS: lisinopril 10 MG tablet PO SCH (08:27)
[2023-01-04] MEDS: thiamine 100mg tablet PO SCH (08:27)
[2023-01-04] MEDS: folic acid 1mg tablet PO SCH (08:27)
--- NOTE | 2023-01-04 16:34 | NUR ---
Nursing Progress Note: Tito Problem: Pt. is on a 5150 for DTS. Per 5150: Pt's called 911 and reported the he was making suicidal statements and held an air soft gun to his chin. Pt. was placed on [facility] Assessment monitoring r/t a history of alcohol withdrawal s/s. His last drink was two days ago and pt. reports he usually drinks one-half pint of karie twice a week. Pt. is currently being treated for a UTI. Interventions: Provided 1:1 assessment, therapeutic communication, active listening, provided a safe and therapeutic environment, provided clear and simple instructions, provided active listening and positive encouragement, medication administration/education/monitoring, and Q15 min safety checks Response: Patient received sleeping in his room at shift change. He awoke shortly after and was noted sitting in the group room with peers until breakfast arrived. Pt was receptive to scheduled medication. He endorsed to this mortgage underwriter that he is doing great today. Patient observed sitting in the group room watching television throughout the morning. He was visited by his during visiting hours today, noted interacting appropriately. Patient endorsed to this mortgage underwriter that he is eager to go home to his . He denies SI/HI, AH or VH. Pt is noted to be pleasant, calm, and cooperative with care. This mortgage underwriter had a nice conversation with patient regarding his life and past experiences as an [employer]. Patient was observed to have a bright affect during conversation. He spent the majority of the shift in the group room with peers and joined for all meal and snack times today. Plan: Pt. requires interruption of current crisis and a safe and supportive environment.
[2023-01-04] MEDS: mirtazapine 15mg tablet PO SCH (19:59)
[2023-01-04] MEDS: OLANZapine 2.5MG tablet PO SCH (19:59)
[2023-01-04] MEDS: naltrexone 50mg tablet PO SCH (19:59)
[2023-01-04 20:00] VITALS: BP 127/79
--- NOTE | 2023-01-05 05:18 | NUR ---
Nursing Progress Note: Tito Problem: Pt. is on a 5150 for DTS. Per 5150: Pt's called 911 and reported the he was making suicidal statements and held an air soft gun to his chin. Pt. was placed on [facility] Assessment monitoring r/t a history of alcohol withdrawal s/s. His last drink was two days ago and pt. reports he usually drinks one-half pint of karie twice a week. Pt. is currently being treated for a UTI. Interventions: 1:1 assessment, therapeutic communication, active listening, provided clear and simple instructions, medication administration/education/monitoring, behavior monitoring and intervention as needed; provided distraction, direction, positive reinforcement, reality orientation, maintained a safe and supportive environment, and Q15 minute safety checks. Response: Pt visible on unit, watching TV in day room with peers. Pt seems a little brighter today. Stated he had a good visit with his today. Pt has a steady gait and is reminded to use his walker anyway. Pt is medication compliant. Pt denies SI/HI/AVH, depression and anxiety. Pt is alert and Ox3. He is cooperative with staff and gets along with peers. Monitor for safety q15 minutes. Plan: Pt. requires interruption of current crisis and a safe and supportive environment.
[2023-01-05 08:00] VITALS: BP 121/78
[2023-01-05] MEDS: metoprolol succinate 25mg (24-HOUR) SR. Tablet PO SCH (08:00)
--- NOTE | 2023-01-05 08:31 | NUR ---
F/u 01/05: Pt PO fluctuates ~63% avg regular diet participating in snacks per EMR. LBM 01/04 receiving routine probiotic. No nutrition interventions at this time. Will continue to follow. Recommendations: 1) Continue regular diet 2) Continue routine Thiamine, Folic acid, and MVI for EtOH hx 3) bowel care per rx 4) Weekly scaled weights Addendum: 01/05/23 at [address] Amended: Links added.
[2023-01-05] MEDS: lactobacillus rhamnosus 10,000 MMU CELLS/CAPSULE PO SCH ×2 (10:45→20:15)
[2023-01-05] MEDS: venlafaxine XR 75mg capsule (Q24H) PO SCH (10:45)
[2023-01-05] MEDS: hydrOXYzine 25 MG tablet PO SCH ×3 (10:45→20:15)
[2023-01-05] MEDS: multivitamins, therapeutics tablet PO SCH (10:45)
[2023-01-05] MEDS: lisinopril 10 MG tablet PO SCH (10:46)
[2023-01-05] MEDS: pantoprazole 40mg Tablet.DR PO SCH (10:46)
[2023-01-05] MEDS: thiamine 100mg tablet PO SCH (10:46)
[2023-01-05] MEDS: folic acid 1mg tablet PO SCH (10:46)
--- NOTE | 2023-01-05 17:01 | NUR ---
Nursing Progress Note: Tito Problem: Pt. is on a 5150 for DTS. Per 5150: Pt's called 911 and reported the he was making suicidal statements and held an air soft gun to his chin. Pt. was placed on [facility] Assessment monitoring r/t a history of alcohol withdrawal s/s. His last drink was two days ago and pt. reports he usually drinks one-half pint of karie twice a week. Pt. is currently being treated for a UTI. Interventions: Provided 1:1 assessment, therapeutic communication, active listening, provided a safe and therapeutic environment, provided clear and simple instructions, provided active listening and positive encouragement, medication administration/education/monitoring, and Q15 min safety checks. Response: Patient noted sleeping in his room at shift change. He awoke and was observed sitting in the group room watching TV with peers until breakfast arrived. Pt was receptive to scheduled medication and 1:1 assessment. He was noted visiting with his during visiting hours today. Pt endorsed desire to discharge home and be with his . He denies all MH symptoms, does not appear to be responding to IS. He continues to present as calm, pleasant and cooperative with care. Patient participated in group therapy today, noted engaging and participating appropriately. He was observed sitting in the group room watching television with peers throughout the shift. Pt participated for all meal and snack times in the group room today. Plan: Pt. requires interruption of current crisis and a safe and supportive environment.
--- NOTE | 2023-01-05 17:14 | NUR ---
[employer] documentation: I have reviewed all interventions, assessments performed and documented by BANDAR Atkins.
[2023-01-05 19:25] VITALS: BP 133/82
[2023-01-05] MEDS: naltrexone 50mg tablet PO SCH (20:14)
[2023-01-05] MEDS: mirtazapine 15mg tablet PO SCH (20:15)
[2023-01-05] MEDS: OLANZapine 2.5MG tablet PO SCH (20:15)
--- NOTE | 2023-01-06 02:08 | NUR ---
Nursing Progress Note: Problem: Pt. is on a 5150 for DTS. Per 5150: Pt's called 911 and reported the he was making suicidal statements and held an air soft gun to his chin. Pt. was placed on [facility] Assessment monitoring r/t a history of alcohol withdrawal s/s. His last drink was two days ago and pt. reports he usually drinks one-half pint of karie twice a week. Pt. is currently being treated for a UTI. Interventions: Provided 1:1 assessment, therapeutic communication, active listening, provided a safe and therapeutic environment, provided clear and simple instructions, provided active listening and positive encouragement, medication administration/education/monitoring, and Q15 min safety checks. Response: Patient is pleasant and cooperative with care; compliant with medication. Denied SI, HI, A/VH; no apparent delusions expressed. Patient was social with peers and participated in HS snack prior to bed; observed sleeping and does not appear to be having difficulty. Plan: Pt. requires interruption of current crisis and a safe and supportive environment.
[2023-01-06] MEDS: lactobacillus rhamnosus 10,000 MMU CELLS/CAPSULE PO SCH (07:34)
[2023-01-06] MEDS: lisinopril 10 MG tablet PO SCH (07:35)
[2023-01-06] MEDS: multivitamins, therapeutics tablet PO SCH (07:35)
[2023-01-06] MEDS: venlafaxine XR 75mg capsule (Q24H) PO SCH (07:35)
[2023-01-06] MEDS: thiamine 100mg tablet PO SCH (07:35)
[2023-01-06] MEDS: hydrOXYzine 25 MG tablet PO SCH ×2 (07:35→12:47)
[2023-01-06] MEDS: folic acid 1mg tablet PO SCH (07:35)
[2023-01-06] MEDS: metoprolol succinate 25mg (24-HOUR) SR. Tablet PO SCH (07:35)
[2023-01-06] MEDS: pantoprazole 40mg Tablet.DR PO SCH (07:35)
[2023-01-06 08:00] VITALS: BP 112/83
[2023-01-06] MEDS ORDERED: MIRT-87 PO (09:27)
[2023-01-06] MEDS ORDERED: VENL150T3 PO (09:27)
[2023-01-06] MEDS ORDERED: MULT-25 PO (09:27)
[2023-01-06] MEDS ORDERED: OLAN2.5T28 PO (09:27)
[2023-01-06] MEDS ORDERED: HYDR-3686 PO (09:27)
[2023-01-06] MEDS ORDERED: LISI10TA27 PO (09:27)
[2023-01-06] MEDS ORDERED: METO-395 PO (09:27)
[2023-01-06] MEDS ORDERED: NALT50TA PO (09:27)
[2023-01-06] MEDS ORDERED: PANT40TA54 PO (09:27)
--- NOTE | 2023-01-06 14:01 | NUR ---
DISCHARGE: Patient discharged and escorted from unit at approximately 1327. Discharge instructions reviewed, pt verbalized understanding. Personal belongings inventoried and returned to patient. He is alert and oriented with no s/s of distress. Pt is calm, pleasant, and cooperative. He was picked up by family and left the hospital without incident.
== END 2023-01-06 13:30 | disposition home or self-care (01) | DRG 885 ==
LOC: ER 00:02 → ED HOLD 12-27 11:55 → ADULT MH 12-27 16:24
PROVIDERS: ADMIT Psychiatry & Neurology Psychiatry; ATTEND Psychiatry & Neurology Psychiatry
DX: F31.9 Bipolar disorder, unspecified (principal); I11.0 Hypertensive heart disease with heart failure; F10.229 Alcohol dependence with intoxication, unspecified; F10.259 Alcohol dependence with alcohol-induced psychotic disorder, unspecified; R45.851 Suicidal ideations; I42.6 Alcoholic cardiomyopathy; N39.0 Urinary tract infection, site not specified; Z20.822 Contact with and (suspected) exposure to COVID-19; G25.0 Essential tremor; W18.39XA Other fall on same level, initial encounter; E03.9 Hypothyroidism, unspecified; I50.9 Heart failure, unspecified; K21.9 Gastro-esophageal reflux disease without esophagitis; Z79.899 Other long term (current) drug therapy; Z81.1 Family history of alcohol abuse and dependence; Z91.51 Personal history of suicidal behavior; Z87.01 Personal history of pneumonia (recurrent); Z83.42 Family history of familial hypercholesterolemia; Z84.89 Family history of other specified conditions; Y93.89 Activity, other specified; Y92.098 Other place in other non-institutional residence as the place of occurrence of the external cause; Y99.8 Other external cause status; Z71.6 Tobacco abuse counseling
CPT/HCPCS: 36415; 70551; 80048; 80053; 80061; 80305; 80320; 81001; 83036; 83735; 84100; 84443; 85025; 86704; 86705; 86706; 87081; 87340; 87811; 99285; A9575; C2617; Q0177

== ENCOUNTER 2023-04-02 03:24 | Inpatient (IN) | payer MEDICARE ==
[~2023-04-02] VITALS: Ht 180.3 cm; Wt 85.4 kg
[~2023-04-02 03:24] MED LIST changes: -CHLO25CA10 PO; +HYDR-3686 PO; -HYDR-3927 PO; -LITH300C PO; -LORA-269 PO; +MULT-25 PO; -OMEP40CA21 PO; +PANT40TA54 PO; -PARO10TA4 PO; -THIA100T66 PO; -VENL150C58 PO; +VENL150T3 PO; -VENL37.55 PO
[2023-04-02 04:17] LABS: BASOPHILS % (AUTO) 0.6 % (0-1); EOSINOPHILS % (AUTO) 0.3 % (0-6); HEMATOCRIT 38.2 % (42.0-52.0); HEMOGLOBIN 12.5 g/dl (14.0-17.9); LYMPHOCYTES # (AUTO) 1.2 X10'3 (1.1-4.8); LYMPHOCYTES % (AUTO) 19.5 % (21-51); MEAN CORPUSCULAR HGB CONC 32.7 g/dL (33.0-36.5); MEAN CORPUSCULAR VOLUME 94.7 FL (78-98); MEAN PLATELET VOLUME 7.6 FL (7.4-10.4); MONOCYTES # (AUTO) 0.7 X10'3 (0-0.9); MONOCYTES % (AUTO) 11.3 % (2-12); NEUTROPHILS # (AUTO) 4.3 X10'3 (1.8-7.7); NEUTROPHILS % (AUTO) 68.3 % (42-75); PLATELET COUNT 202 X10'3 (140-440); RED BLOOD COUNT 4.04 X10'6 (4.70-6.10); RED CELL DISTRIBUTION WIDTH 20.4 % (11.5-14.5); WHITE BLOOD COUNT 6.3 X10'3 (4.5-11.0)
[2023-04-02 04:22] LABS: BILIRUBIN,URINE NEGATIVE (Neg); COLOR,URINE STRAW (Yellow); GLUCOSE, URINE NEGATIVE (Neg); KETONES,URINE NEGATIVE (Neg); LEUKOCYTE ESTERASE ,URINE NEGATIVE (Neg); NITRITES, URINE NEGATIVE (Neg); OCCULT BLOOD,URINE MODERATE (Neg); PROTEIN,URINE NEGATIVE (Neg); UROBILINOGEN,URINE 0.2 E.U/dL (0.2-1.0)
[2023-04-02 04:27] LABS: ALANINE AMINOTRANSFERASE 37 U/L (12-78); ALBUMIN 3.1 G/DL (3.4-5.0); ALBUMIN/GLOBULIN RATIO 0.9 (1.1-1.5); ALKALINE PHOSPHATASE 105 IU/L (46-116); ANION GAP 10 (8-16); ASPARTATE AMINO TRANSFERASE 23 U/L (10-37); BILIRUBIN,TOTAL 0.3 MG/DL (0.1-1.0); BLOOD UREA NITROGEN 12 MG/DL (7-18); CALCIUM 9.3 MG/DL (8.5-10.1); CHLORIDE 105 MMOL/L (99-107); ETHANOL 148 MG/DL (<10); GLUCOSE 98 MG/DL (70-104); POTASSIUM 3.5 MMOL/L (3.5-5.1); SALICYLATE 0.6 MG/DL (4.0-20.0); SODIUM 142 MMOL/L (135-145); TOTAL CARBON DIOXIDE 26.6 MMOL/L (24-32); TOTAL PROTEIN 6.6 G/DL (6.4-8.2); eCRCL 84 ML/MIN; eGFR > 90 ML/MIN
[2023-04-02 04:29] LABS: CLARITY,URINE SLIGHTLY CLOUDY (Clear); UA COLLECTION TYPE CLN CATCH MIDSTREAM; WBC,URINE 0-4 /HPF (0-4)
[2023-04-02] MEDS ORDERED: ACAM333T8 PO (04:29)
[2023-04-02] MEDS ORDERED: DIAZ10TA5 PO (04:29)
[2023-04-02 04:31] LABS: BACTERIA,URINE 3+ /HPF (Neg); MUCUS STRANDS NONE SEEN /LPF (Neg); SQUAMOUS EPITHELIAL CELL,UR NONE SEEN /LPF (FEW)
[2023-04-02 04:32] LABS: URINE AMPHETAMINE SCREEN NEGATIVE (Neg); URINE BARBITUATE SCREEN NEGATIVE (Neg); URINE BENZODIAZEPINES SCREEN NEGATIVE (Neg); URINE CANNABINOID SCREEN NEGATIVE (Neg); URINE COCAINE SCREEN NEGATIVE (Neg); URINE METHADONE SCREEN NEGATIVE (Neg); URINE OPIATE SCREEN NEGATIVE (Neg); URINE PHENCYCLIDINE SCREEN NEGATIVE (Neg)
--- NOTE | 2023-04-02 04:41 | NUR ---
WHEN ASSESSING PATIENT'S SI, PT STATES HIS METHOD IS TO SHOOT UNDER HIS CHIN WITH A PELLET GUN THAT HE HAS OR CRASHING HIS VEHICLE.
[2023-04-02 04:44] LABS: ACETAMINOPHEN < 2.0 UG/ML (10-30)
[2023-04-02 04:54] LABS: ANISOCYTOSIS 3+; PLATELET ESTIMATE NORMAL
[2023-04-02 04:55] LABS: ELLIPTOCYTES FEW
--- NOTE | 2023-04-02 05:10 | NUR ---
Client arrived in ED Overflow at 05:05 via wheelchair, accompanied by JEREMY Lane. Client was placed on a 5150 for DTS. Client stated he wanted to end his life by using a pellet gun or crashing his car. Admitted with elevated BAL. Client fell asleep.
--- NOTE | 2023-04-02 05:20 | NUR ---
packet sent to [facility]
--- NOTE | 2023-04-02 05:53 | NUR ---
05:45 client reported "Can I get some Ativan? I'm going through withdrawals." MD was notified. No med orders were received. MD stated "He's going to be re-assessed in an hour." Client reported he's been drinking 1/2 pint Demond (daily) for years. Denies nausea/vomiting. Moderate tremors in both hands. Reports anxiety.
[2023-04-02] MEDS ORDERED: VENL150T3 PO (06:59)
[2023-04-02] MEDS ORDERED: PANT-47 PO (07:09)
[2023-04-02] MEDS ORDERED: LISI-643 PO (07:09)
[2023-04-02] MEDS ORDERED: NALT50TA PO (07:09)
[2023-04-02] MEDS ORDERED: METO-395 PO (07:09)
[2023-04-02] MEDS ORDERED: DIAZ10TA4 PO (07:13)
--- NOTE | 2023-04-02 07:29 | NUR ---
Med rec completed, printed, signed by , faxed to pharmacy. New order for PRN Ativan 1 mg PO Q4H PRN obtained.
[2023-04-02] MEDS: LORazepam 1 MG tablet PO PRN ×4 (07:47→21:54)
--- NOTE | 2023-04-02 07:51 | NUR ---
Pt c/o increased anxiety and withdrawal symptoms. CIWA score is a 12. Gave PRN Ativan 1 mg PO. Pt endorses depression. When asked about SI, pt replied, "not right now."
--- NOTE | 2023-04-02 08:38 | NUR ---
Pt is sitting on the side of his bed eating his breakfast.
--- NOTE | 2023-04-02 08:47 | NUR ---
CIWA score now down to a 5. Pt is c/o 6/10 stomach pain. Pt states he believes he has "a hole" in his stomach. Still waiting for pharmacy to input his meds into the [facility]AR. Pt has a prescription for Protonix. Medication education provided that it is a good idea for him to take this medication daily to help with his stomach symptoms. Per report, pt has not taken his medications for the past week.
--- NOTE | 2023-04-02 10:21 | NUR ---
Pt up to the bathroom.
[2023-04-02] MEDS ORDERED: ondansetron 4mg rapidly disintigrating tab PO ONE (10:30)
--- NOTE | 2023-04-02 10:31 | NUR ---
Pt c/o nausea, order obtained for Zofran ODT 4 mg X 1.
[2023-04-02] MEDS: metoprolol succinate 25mg (24-HOUR) SR. Tablet PO SCH (11:00)
[2023-04-02] MEDS: pantoprazole 40mg Tablet.DR PO SCH (11:00)
[2023-04-02] MEDS: lisinopril 10 MG tablet PO SCH (11:00)
[2023-04-02] MEDS: venlafaxine XR 75mg capsule (Q24H) PO SCH (11:01)
--- NOTE | 2023-04-02 11:25 | NUR ---
Repeat BAL order obtained as requested for potential placement at [facility].
--- NOTE | 2023-04-02 11:31 | NUR ---
[facility] is at bedside evaluating the patient.
--- NOTE | 2023-04-02 12:03 | NUR ---
A new 5150 was written by [facility].
--- NOTE | 2023-04-02 12:04 | NUR ---
The lab is here to draw pt's blood.
--- NOTE | 2023-04-02 13:41 | NUR ---
Pt has been accepted at [facility].
--- NOTE | 2023-04-02 14:47 | NUR ---
Pt transferred upstairs to [facility]. All belongings and original 5150 sent with the patient. Escorted off the unit in a w/c accompanied by [facility] CRN and security.
[2023-04-02 14:57] VITALS: BP 147/88; PULSE 85; RESP 16; TEMP 98.6; O2SAT 93
[2023-04-02] MEDS ORDERED: acetaminophen 325mg tablet PO PRN (15:25)
[2023-04-02] MEDS ORDERED: magnesium hydroxide 30ml (MOM) UD suspension PO PRN (15:25)
[2023-04-02] MEDS ORDERED: mag hydrox/Alum hydrox/simeth 30ml oral suspension PO PRN (15:25)
[2023-04-02] MEDS ORDERED: loperamide 2mg capsule PO PRN (15:25)
--- NOTE | 2023-04-02 15:40 | NUR ---
Admit note: [facility]150 for DTS from our ER at 1450. Pt states he would shoot himself in the chin with a pellet gun. He seems hopeless and doesn't see anything changing. Pt has history of depression. Addendum: 04/02/23 at 1705 by Analia Champagne RN Problem: 77-year-old male with history of depression with suicidal ideation, bipolar, hypertension who presents stating that he does not see the point of life anymore. States that he has had suicidal ideation for a while, and it has been worsening. called 911 and it was reported that he had an air rifle to his chin. Per EMS he was drinking earlier tonight, and then called 911 stating that he wanted to take a pellet gun and shoot himself to "end it". Police came and put him on a 5150 for DTS. Admitted from [facility] on 04/02/23 . [place] [phone]. Pt states confused about what medications hes supposed to be taking because he has had so many doctors. Pt up to the bathroom 4 times during admission assessment with gas. Pt says what stops him from acting on his plans is that he doesnt want anyone else to suffer due to him doing this.
[2023-04-02 15:57] VITALS: RESP 16; O2SAT 93
[2023-04-02] MEDS: acetaminophen 325mg tablet PO PRN (16:45)
[2023-04-02 19:00] VITALS: RESP 16; O2SAT 94
[2023-04-02 20:00] VITALS: BP 114/75; PULSE 88; RESP 16; TEMP 98.3; O2SAT 94
[2023-04-02] MEDS ORDERED: diazepam 5mg tablet PO SCH (21:00)
[2023-04-02] MEDS: naltrexone 50mg tablet PO SCH (21:02)
[2023-04-03] MEDS ORDERED: mirtazapine 15mg tablet PO ONE (00:44)
[2023-04-03] MEDS ORDERED: mirtazapine 15mg tablet PO PRN (00:45)
--- NOTE | 2023-04-03 05:21 | NUR ---
Nursing Progress Note: Tito Problem: Pt is a 77 y/o admitted to [facility] today on 5150 for DTS from our ER at 1450. Pt has a history of depression with suicidal ideation, bipolar, hypertension who presents stating that he does not see the point of life anymore. States that he has had suicidal ideation for a while, and it has been worsening. Pt states he would shoot himself in the chin with a pellet gun. He seems hopeless and doesn't see anything changing. Interventions: Safe and supportive environment, medication administration/education/monitoring, provided clear and simple instructions, provided active listening and positive encouragement, monitored V/S, maintained fall precautions, and maintained Q 15 min safety checks. Response: Received report from AM shift. Pt in community room watching TV. Pt pleasant and cooperative. Pt tolerated meds with no issues noted. Pt denies SI, HI, VH/AH at this time. Pt report constant kidney pain, Pt refuse analgesic at this time. PRN Ativan given. Pt is guarded and does want to elaborate. Pt participate in snacks in community room watching TV. Pt not sociable with peers. Pt reported he has a hard time sleeping has been tossing and turning most of the night. Pt walking the hallway during the night. PRN one time Remeron 15mg administered for sleep. Pt up all night walking the salmon. Pt nap here and there total of an hour around approximately 2130. Plan: Pt. continues to require medication adjustments and a safe and supportive environment.
[2023-04-03] MEDS: metoprolol succinate 25mg (24-HOUR) SR. Tablet PO SCH (07:29)
[2023-04-03] MEDS: venlafaxine XR 75mg capsule (Q24H) PO SCH (07:30)
[2023-04-03] MEDS: lisinopril 10 MG tablet PO SCH (07:30)
[2023-04-03] MEDS: pantoprazole 40mg Tablet.DR PO SCH (07:30)
[2023-04-03 08:00] VITALS: BP 146/86; PULSE 74; RESP 16; TEMP 97.4; O2SAT 95
[2023-04-03 08:17] LABS: CHOL/HDL RATIO 1.8 (0.00-4.99); CHOLESTEROL 146 MG/DL (0-200); HDL CHOLESTEROL 81 MG/DL (35-60); LDL CHOLESTEROL 46 MG/DL (50-100); TRIGLYCERIDES 69 MG/DL (20-135)
[2023-04-03 08:28] LABS: HEMOGLOBIN A1C 5.4 % (4.5-6.2)
--- NOTE | 2023-04-03 09:58 | NUR ---
Malnutrition consult re: "Pt says nausea keeps him from eating properly". Pt reports 2-13 lb wt loss with decreased appetite/PO intake per malnutrition risk screen with RN. Per ED note pt denies any nausea and no GI symptoms at this time per EMR though pt was documented with N/V, abdominal pain, and diarrhea on admit per care trends. Most recent scaled wt hx in EMR is 88.5 kg 12/27 with previous scaled wt of 86.4 kg 11/26, current scaled wt is 85.4 kg. This is non-significant wt loss of 3.1 kg (3.5%) in greater than three months. Pt currently on a regular diet with improving PO intake, documented with average 50% PO intake of first meal up to 75-100% the following two meals. Pt with no documented significant decrease in muscle strength or edema. Pt currently lacks a minimum of two criteria for malnutrition though will continue to follow and monitor s/s of malnutrition. Addendum: 04/03/23 at [address] Amended: Links added.
[2023-04-03 15:00] VITALS: BP 107/67; PULSE 74; RESP 16; O2SAT 96
[2023-04-03] MEDS: LORazepam 1 MG tablet PO PRN ×2 (16:20→22:46)
--- NOTE | 2023-04-03 16:24 | NUR ---
Nursing Progress Note: Tito Problem: Pt is a 77 y/o admitted to [facility] today on 5150 for DTS from our ER at 1450. Pt has a history of depression with suicidal ideation, bipolar, hypertension who presents stating that he does not see the point of life anymore. States that he has had suicidal ideation for a while, and it has been worsening. Pt states he would shoot himself in the chin with a pellet gun. He seems hopeless and doesn't see anything changing. Interventions: Safe and supportive environment, medication administration/education/monitoring, provided clear and simple instructions, provided active listening and positive encouragement, monitored V/S, maintained fall precautions, and maintained Q 15 min safety checks. Response: Received pt awake walking in the hallway. Pt took all medications cooperatively and ate all meals in the community room. Pt pleasant and cooperative with staff. Performed 1:1 at bedside. Pt denies SI/HI, and AVH. Pt observed watching TV in community room. Pt napped intermittently throughout the day. Pt participated in snack and bingo today. CIWA q8 per MD started today at 1500 with a score of 5. Plan: Pt. continues to require medication adjustments and a safe and supportive environment.
[2023-04-03 19:00] VITALS: RESP 14; O2SAT 94
[2023-04-03 20:00] VITALS: BP 123/84; PULSE 74; RESP 14; TEMP 98; O2SAT 94
[2023-04-03] MEDS: thiamine 100mg tablet PO SCH (20:38)
[2023-04-03] MEDS: naltrexone 50mg tablet PO SCH (20:38)
[2023-04-03] MEDS: mirtazapine 15mg tablet PO SCH ×2 (20:38→22:46)
[2023-04-03] MEDS: acetaminophen 325mg tablet PO PRN (20:38)
--- NOTE | 2023-04-04 03:35 | NUR ---
Nursing Progress Note: Tito Problem: Pt is a 77 y/o admitted to [facility] today on 5150 for DTS from our ER at 1450. Pt has a history of depression with suicidal ideation, bipolar, hypertension who presents stating that he does not see the point of life anymore. States that he has had suicidal ideation for a while, and it has been worsening. Pt states he would shoot himself in the chin with a pellet gun. He seems hopeless and doesn't see anything changing. Interventions: Safe and supportive environment, medication administration/education/monitoring, provided clear and simple instructions, provided active listening and positive encouragement, monitored V/S, maintained fall precautions, and maintained Q 15 min safety checks. Response: Received report from AM shift. Pt in eating dinner in community room. Pt pleasant and cooperative. Pt tolerated meds with no issues noted. Pt denies SI, HI, VH/AH at this time. Pt reported had a small hard BM. Pt reported L back kidney pain. PRN Tylenol administer, effective. Pt Valium DC. Pt participate in snack and spent most of the shift in community room watching TV. Pt intermittently napped throughout the shift. Pt up pacing the salmon intermittently through the night. Pt has been forgetful and has been reminded to walk with the walker. CIWA q8 per MD scored of 1 this shift. Remeron administered and second dose an hour later with PRN Ativan. Plan: Pt. continues to require medication adjustments and a safe and supportive environment.
[2023-04-04] MEDS: venlafaxine XR 75mg capsule (Q24H) PO SCH (07:13)
[2023-04-04] MEDS: pantoprazole 40mg Tablet.DR PO SCH (07:14)
[2023-04-04] MEDS: multivitamins, therapeutics tablet PO SCH (07:14)
[2023-04-04] MEDS: folic acid 1mg tablet PO SCH (07:14)
[2023-04-04] MEDS: thiamine 100mg tablet PO SCH ×2 (07:14→20:59)
[2023-04-04] MEDS: metoprolol succinate 25mg (24-HOUR) SR. Tablet PO SCH (07:17)
[2023-04-04] MEDS: lisinopril 10 MG tablet PO SCH (07:18)
[2023-04-04 07:30] VITALS: RESP 16; O2SAT 96
[2023-04-04 08:00] VITALS: BP 137/76; PULSE 55; RESP 16; TEMP 98.8; O2SAT 96
[2023-04-04 15:00] VITALS: BP 161/105; PULSE 85; RESP 17; O2SAT 95
[2023-04-04] MEDS: LORazepam 1 MG tablet PO PRN (15:35)
--- NOTE | 2023-04-04 16:18 | NUR ---
Nursing Progress Note: Tito Problem: Pt is a 77 y/o admitted to [place] for Behavioral health today on 5150 for DTS from our ER at 1450. Pt has a history of depression with suicidal ideation, bipolar, hypertension who presents stating that he does not see the point of life anymore. States that he has had suicidal ideation for a while, and it has been worsening. Pt states he would shoot himself in the chin with a pellet gun. He seems hopeless and doesn't see anything changing. Interventions: Safe and supportive environment, medication administration/education/monitoring, provided clear and simple instructions, provided active listening and positive encouragement, monitored V/S, maintained fall precautions, and maintained Q 15 min safety checks. Response: Received pt awake in the hallway. Pt took all medications cooperatively and ate breakfast in the community room. Performed 1:1 at bedside. CIWA score 0700 1. Pt states that he is feeling more depressed today about everything overall. Pt stated been thinking a lot about my and thats depressing. I dont know what to do. Nothing is going to change. Everything has gone too far, theres no turning back. This RN asked pt what the best outcome would be for his situation, pt responded every way I look at it, everything turns to shit. Pt states that he has never attended support groups. Encouraged pt to attend group today. Pt agreed and did so. Pt denies SI/HI, and AVH. MD and baby formula worker made aware of pt condition, no new orders at this time. Pt refused lunch and isolated in room napping. Pt had snack. CIWA score 1500 4 due to agitation. Pt stated that he was worried his was moving out and she wont answer the phone when he calls. Gave PRN Ativan 1mg with good effect. Plan: Pt. continues to require medication adjustments and a safe and supportive environment.
[2023-04-04 19:00] VITALS: RESP 14; O2SAT 94
[2023-04-04 20:30] VITALS: BP 150/90; PULSE 83; RESP 14; TEMP 98.7; O2SAT 93
[2023-04-04] MEDS: naltrexone 50mg tablet PO SCH (20:59)
[2023-04-04] MEDS: mirtazapine 15mg tablet PO SCH (20:59)
--- NOTE | 2023-04-05 04:44 | NUR ---
RN PROGRESS NOTE: LEGAL HOLD: 5150 for DTS PROBLEM: Client admitted to [facility] for suicidal ideation. Hx of ETOH abuse. Reports he's been drinking a 1/2 pint of Beatrice for "years". Client reports he wants to shoot himself "with a pellet gun under his chin". Reports feelings of Hopeless and "what's the point?". INTERVENTIONS: Safe and supportive environment, medication administration/education/monitoring, provided clear and simple instructions, provided active listening and positive encouragement, monitored V/S, maintained fall precautions, and maintained Q 15 min safety checks. RESPONSE: Client was sleeping at COS. He is currently on a CIWA. He scored a "2" at 20:00. Client's affect and mood are depressed. He stated "My doesn't want me back." He has been for 55 years. He got up several times during the night and walked in the salmon. He was able to fall back to sleep w/o difficulty. Client is significantly depressed. Took PM meds. PLAN: Pt. continues to require medication adjustments and a safe and supportive environment.
[2023-04-05 07:20] VITALS: RESP 20; O2SAT 95
[2023-04-05] MEDS: multivitamins, therapeutics tablet PO SCH (07:38)
[2023-04-05] MEDS: pantoprazole 40mg Tablet.DR PO SCH (07:38)
[2023-04-05] MEDS: LORazepam 1 MG tablet PO PRN ×4 (07:38→22:52)
[2023-04-05] MEDS: thiamine 100mg tablet PO SCH ×2 (07:38→20:15)
[2023-04-05] MEDS: venlafaxine XR 75mg capsule (Q24H) PO SCH (07:38)
[2023-04-05] MEDS: lisinopril 10 MG tablet PO SCH (07:38)
[2023-04-05] MEDS: metoprolol succinate 25mg (24-HOUR) SR. Tablet PO SCH (07:39)
[2023-04-05] MEDS: folic acid 1mg tablet PO SCH (07:39)
[2023-04-05 08:00] VITALS: BP 148/80; PULSE 63; RESP 20; TEMP 98.3; O2SAT 93
[2023-04-05] MEDS ORDERED: venlafaxine XR 37.5mg cap (Q24H) PO ONE (13:40)
[2023-04-05] MEDS: acetaminophen 325mg tablet PO PRN (14:21)
--- NOTE | 2023-04-05 16:52 | NUR ---
Nursing Progress Note: Tito Problem: Pt is a 77 y/o admitted to [place] for Behavioral health today on 5150 for DTS from our ER at 1450. Pt has a history of depression with suicidal ideation, bipolar, hypertension who presents stating that he does not see the point of life anymore. States that he has had suicidal ideation for a while, and it has been worsening. Pt states he would shoot himself in the chin with a pellet gun. He seems hopeless and doesn't see anything changing. Interventions: Safe and supportive environment, medication administration/education/monitoring, provided clear and simple instructions, provided active listening and positive encouragement, monitored V/S, maintained fall precautions, and maintained Q 15 min safety checks. Response: Received report from AM shift. Pt pleasant and cooperative, took meds with no issues noted. Pt feeling anxious/agitated this AM. Pt reported trying to call for a few days and has not heard from her. Pt reported she might be mad at me. Pt reported wanted him to come in here. Pt reported feeling like this because of her. Pt reported it makes him want to drink. Pt refused breakfast and lunch. Pt reported feeling nausea this AM. Pt isolate self this shift. PRN Ativan, Tylenol administered. ordered 37.5mg one time dose this shift. Pt denies HI, VH/AH at this. Pt endorse SI but has no plan. Pt called this evening and answered. Pt appears less anxious and more relief to hear her voice. Pt reported still has anxiety and needs to calm down. Pt reported feeling better hearing speaking with her. Pt reported will be visiting tomorrow. Plan: Pt. continues to require medication adjustments and a safe and supportive environment.
[2023-04-05 19:16] VITALS: BP 124/88; PULSE 95; RESP 18; TEMP 97.9; O2SAT 96
[2023-04-05 19:55] VITALS: RESP 18; O2SAT 96
[2023-04-05] MEDS: naltrexone 50mg tablet PO SCH (20:15)
[2023-04-05] MEDS: mirtazapine 15mg tablet PO SCH ×2 (20:15→22:52)
--- NOTE | 2023-04-05 21:40 | NUR ---
Nursing Progress Note: Problem: Pt is a 77 y/o admitted to [place] for Behavioral health today on 5150 for DTS from our ER at 1450. Pt has a history of depression with suicidal ideation, bipolar, hypertension who presents stating that he does not see the point of life anymore. States that he has had suicidal ideation for a while, and it has been worsening. Pt states he would shoot himself in the chin with a pellet gun. He seems hopeless and doesn't see anything changing. Interventions: Safe and supportive environment, medication administration/education/monitoring, provided clear and simple instructions, provided active listening and positive encouragement, monitored V/S, maintained fall precautions, and maintained Q 15 min safety checks. Response: Pt was sitting in the group room watching tv at change of shift. Pt denies s/i, denies anxiety at cos. Pt reports no needs, states he is looking forward to seeing his tomorrow. Pt spent evening watching tv in the group room. Pt had snacks, took hs meds and went to bed. Plan: Pt. continues to require medication adjustments and a safe and supportive environment.
[2023-04-06 07:00] VITALS: RESP 16; O2SAT 99
[2023-04-06 08:00] VITALS: BP 123/84; PULSE 81; RESP 16; TEMP 97.3; O2SAT 99
[2023-04-06] MEDS: thiamine 100mg tablet PO SCH ×2 (08:59→20:43)
[2023-04-06] MEDS: multivitamins, therapeutics tablet PO SCH (08:59)
[2023-04-06] MEDS: venlafaxine XR 75mg capsule (Q24H) PO SCH (08:59)
[2023-04-06] MEDS: pantoprazole 40mg Tablet.DR PO SCH (08:59)
[2023-04-06] MEDS: folic acid 1mg tablet PO SCH (08:59)
[2023-04-06] MEDS: metoprolol succinate 25mg (24-HOUR) SR. Tablet PO SCH (09:00)
[2023-04-06] MEDS: lisinopril 10 MG tablet PO SCH (09:00)
--- NOTE | 2023-04-06 14:11 | NUR ---
5250 for dts released
--- NOTE | 2023-04-06 18:09 | NUR ---
Nursing Progress Note: Tito Problem: Pt is a 77 y/o admitted to [place] for Behavioral health today on 5150 for DTS from our ER at 1450. Pt has a history of depression with suicidal ideation, bipolar, hypertension who presents stating that he does not see the point of life anymore. States that he has had suicidal ideation for a while, and it has been worsening. Pt states he would shoot himself in the chin with a pellet gun. He seems hopeless and doesn't see anything changing. Interventions: Safe and supportive environment, medication administration/education/monitoring, provided clear and simple instructions, provided active listening and positive encouragement, monitored V/S, maintained fall precautions, and maintained Q 15 min safety checks. Response: Received pt in bed sleeping w/o distress at the beginning of this shift. Pt cooperative with vitals and returned to sleep, before coming to community room for breakfast which he ate well, along with other meals. Pt did not c/o nausea today and did not need any PRn meds. Pt watched TV after breakfast and is ambulating well with FWW. Pt denies HI, VH/AH at this. Pt endorse feelings of passive SI but has no plan. Pt had come to visit [facility] and the visit was pleasant. Pt attended his 5250 hearing and was released and signed voluntary today. Pt smiling and eating dinner with others watching TV. Plan: Pt. continues to require medication adjustments and a safe and supportive environment.
[2023-04-06] MEDS: LORazepam 1 MG tablet PO PRN (18:29)
[2023-04-06 18:55] VITALS: RESP 16; O2SAT 99
[2023-04-06 19:50] VITALS: BP 104/61; PULSE 78; RESP 16; TEMP 98.1; O2SAT 96
[2023-04-06] MEDS: mirtazapine 15mg tablet PO SCH (20:43)
[2023-04-06] MEDS: naltrexone 50mg tablet PO SCH (20:43)
--- NOTE | 2023-04-06 21:05 | NUR ---
Nursing Progress Note: Tito Problem: Pt is a 77 y/o admitted to [place] for Behavioral health today on 5150 for DTS from our ER at 1450. Pt has a history of depression with suicidal ideation, bipolar, hypertension who presents stating that he does not see the point of life anymore. States that he has had suicidal ideation for a while, and it has been worsening. Pt states he would shoot himself in the chin with a pellet gun. He seems hopeless and doesn't see anything changing. Interventions: Safe and supportive environment, medication administration/education/monitoring, provided clear and simple instructions, provided active listening and positive encouragement, monitored V/S, maintained fall precautions, and maintained Q 15 min safety checks. Response: Pt was in the hallway at change of shift, and was provided with a prn ativan by day nurse. Pt reported feeling anxious and went to lay down after having prn. Pt napped during the evening. Pt woke for HS meds and declined a snack, took HS meds and went back to sleep. Plan: Pt. continues to require medication adjustments and a safe and supportive environment.
[2023-04-07 07:00] VITALS: RESP 15; O2SAT 94
[2023-04-07 08:00] VITALS: BP 132/77; PULSE 61; RESP 15; TEMP 97.2; O2SAT 94
[2023-04-07 08:28] VITALS: BP_SYST 132; PULSE 61
[2023-04-07] MEDS: venlafaxine XR 75mg capsule (Q24H) PO SCH (08:28)
[2023-04-07] MEDS: multivitamins, therapeutics tablet PO SCH (08:28)
[2023-04-07] MEDS: pantoprazole 40mg Tablet.DR PO SCH (08:28)
[2023-04-07] MEDS: folic acid 1mg tablet PO SCH (08:28)
[2023-04-07] MEDS: thiamine 100mg tablet PO SCH (08:28)
[2023-04-07] MEDS: lisinopril 10 MG tablet PO SCH (08:28)
[2023-04-07] MEDS: metoprolol succinate 25mg (24-HOUR) SR. Tablet PO SCH (08:28)
--- NOTE | 2023-04-07 11:38 | NUR ---
Initial: Pt admit for depression with SI. Currently receiving routine Thiamine, Folic acid, and MVI for EtOH hx. Pt on a regular diet with slightly fluctuating PO intake, overall averaging 65% PO intake since admit meeting 76% estimated energy needs and 100% estimated protein needs. Per cover assembler pt participating in snacks. Likely that pt is meeting estimated nutrient needs with combined PO intake of meals and snacks. Per cover assembler 04/05 pt refused breakfast and lunch with nausea in the morning. No GI symptoms at this time per EMR. LBM 04/04 per EMR. PRN bowel care available. No nutrition intervention implemented at this time. Will continue to follow and make recommendations as appropriate. Recommendations: 1) Continue regular diet 2) Continue routine Thiamine, Folic acid, and MVI for EtOH hx 3) Bowel care PRN 4) Weekly scaled weights Addendum: 04/07/23 at [address] Amended: Links added.
[2023-04-07] MEDS ORDERED: MIRT-87 PO (13:25)
[2023-04-07] MEDS ORDERED: PANT40TA54 PO (13:25)
[2023-04-07] MEDS ORDERED: METO-395 PO (13:25)
[2023-04-07] MEDS ORDERED: NALT50TA PO (13:25)
[2023-04-07] MEDS ORDERED: VENL75CA61 PO (13:25)
[2023-04-07] MEDS ORDERED: LISI10TA27 PO (13:25)
[2023-04-07] MEDS ORDERED: MULT-25 PO (13:25)
[2023-04-07] MEDS ORDERED: VENL150C4 PO (13:27)
--- NOTE | 2023-04-07 14:41 | NUR ---
Discharge Note: Pt. was escorted off the unit accompanied by Tech and security to the car of his who will be transporting him home. His belongings were inventoried and returned to him by adflyer. This blurb writer reviewed pt's medications and discharge instructions with him and he reported understanding. Pt. will pickup driver his prescriptions at his preferred pharmacy. He has an appointment to follow-up with a psychiatrist. Pt. is able to contract for safety.
== END 2023-04-07 14:41 | disposition home or self-care (01) | DRG 885 ==
LOC: ER 04:06 → ADULT MH 13:30
PROVIDERS: ADMIT Psychiatry & Neurology Psychiatry; ATTEND Psychiatry & Neurology Psychiatry
DX: F33.2 Major depressive disorder, recurrent severe without psychotic features (principal); F10.220 Alcohol dependence with intoxication, uncomplicated; R45.851 Suicidal ideations; Z20.822 Contact with and (suspected) exposure to COVID-19; I10 Essential (primary) hypertension; M54.9 Dorsalgia, unspecified; R20.2 Paresthesia of skin; Z91.148 Patient's other noncompliance with medication regimen for other reason; Z79.899 Other long term (current) drug therapy
CPT/HCPCS: 36415; 80053; 80061; 80305; 80320; 80329; 81001; 82607; 83036; 85008; 85025; 87081; 87811; 99285

== ENCOUNTER 2023-04-12 04:25 | Emergency (ER) | payer MEDICARE ==
[~2023-04-12] VITALS: Ht 180.3 cm; Wt 86.4 kg
[~2023-04-12 04:25] MED LIST changes: -HYDR-3686 PO; -OLAN2.5T28 PO; +VENL150C4 PO; -VENL150T3 PO; +VENL75CA61 PO
[2023-04-12 04:27] VITALS: TEMP 98.1
[2023-04-12] MEDS ORDERED: ketorolac trometh. 30mg/ml inj. IV STA (06:29)
[2023-04-12] MEDS ORDERED: metoclopramide 5 mg/ml inj IV ONE (06:30)
[2023-04-12] MEDS ORDERED: diphenhydrAMINE 50 mg/ml inj IV ONE (06:30)
--- NOTE | 2023-04-12 06:50 | NUR ---
RN ATTEMPTING TO GET IV AT THIS TIME.
[2023-04-12 07:53] LABS: BASOPHILS % (AUTO) 0.4 % (0-1); EOSINOPHILS % (AUTO) 0 % (0-6); HEMATOCRIT 43.4 % (42.0-52.0); HEMOGLOBIN 14.3 g/dl (14.0-17.9); LYMPHOCYTES % (AUTO) 13.5 % (21-51); MEAN CORPUSCULAR HEMOGLOBIN 31.1 PG (27.0-31.0); MEAN PLATELET VOLUME 8.9 FL (7.4-10.4); MONOCYTES # (AUTO) 0.5 X10'3 (0-0.9); MONOCYTES % (AUTO) 6.4 % (2-12); NEUTROPHILS # (AUTO) 5.9 X10'3 (1.8-7.7); NEUTROPHILS % (AUTO) 79.7 % (42-75); PLATELET COUNT 222 X10'3 (140-440); RED BLOOD COUNT 4.62 X10'6 (4.70-6.10); RED CELL DISTRIBUTION WIDTH 19.6 % (11.5-14.5); WHITE BLOOD COUNT 7.5 X10'3 (4.5-11.0)
[2023-04-12 08:00] LABS: ACETONE NEGATIVE (NEGATIVE)
[2023-04-12 08:28] LABS: ANISOCYTOSIS 2+; ELLIPTOCYTES FEW; PLATELET ESTIMATE NORMAL; POIKILOCYTOSIS FEW
[2023-04-12 08:30] LABS: ALANINE AMINOTRANSFERASE 57 U/L (12-78); ALBUMIN/GLOBULIN RATIO 1.1 (1.1-1.5); ALKALINE PHOSPHATASE 123 IU/L (46-116); ANION GAP 19 (8-16); ASPARTATE AMINO TRANSFERASE 41 U/L (10-37); BILIRUBIN,TOTAL 0.7 MG/DL (0.1-1.0); BLOOD UREA NITROGEN 14 MG/DL (7-18); CALCIUM 10.1 MG/DL (8.5-10.1); CHLORIDE 100 MMOL/L (99-107); CREATININE 1.08 MG/DL (0.60-1.10); ETHANOL 29 MG/DL (<10); GLUCOSE 102 MG/DL (70-104); POTASSIUM 3.5 MMOL/L (3.5-5.1); SODIUM 139 MMOL/L (135-145); TOTAL CARBON DIOXIDE 19.8 MMOL/L (24-32); TOTAL PROTEIN 7.7 G/DL (6.4-8.2); eCRCL 61 ML/MIN; eGFR 66 ML/MIN
--- NOTE | 2023-04-12 08:51 | NUR ---
PT PULLED OUT IV TIP INTACT AND NO SITE COMP. PER DR MOY PT MAY BE DISCHARGED. NOTIFIED AND WILL TRANSPORT PT HOME.
[2023-04-12 08:52] VITALS: BP 149/105; PULSE 108; RESP 19; O2SAT 97
--- NOTE | 2023-04-12 08:52 | NUR ---
CALLED PT'S @5227 SHE WILL COME PICK PT UP AROUND 9:15
== END 2023-04-12 09:15 | disposition home or self-care (01) ==
LOC: ER 04:26
DX: F10.129 Alcohol abuse with intoxication, unspecified (principal); I10 Essential (primary) hypertension; F31.9 Bipolar disorder, unspecified; Z79.899 Other long term (current) drug therapy; Y90.9 Presence of alcohol in blood, level not specified
CPT/HCPCS: 36415; 80053; 80320; 82009; 85008; 85025; 93005; 96374; 96375; 99284; J1200; J1885; J2765

== ENCOUNTER 2023-07-30 13:40 | Emergency (ER) | payer MEDICARE ==
[~2023-07-30] VITALS: Ht 180.3 cm; Wt 80.0 kg
[2023-07-30 14:29] LABS: BASOPHILS % (AUTO) 0.4 % (0-1); EOSINOPHILS % (AUTO) 0.1 % (0-6); HEMATOCRIT 44.7 % (42.0-52.0); HEMOGLOBIN 14.6 g/dl (14.0-17.9); LYMPHOCYTES # (AUTO) 1.9 X10'3 (1.1-4.8); LYMPHOCYTES % (AUTO) 25.1 % (21-51); MEAN CORPUSCULAR HEMOGLOBIN 32.5 PG (27.0-31.0); MEAN CORPUSCULAR HGB CONC 32.7 g/dL (33.0-36.5); MEAN CORPUSCULAR VOLUME 99.6 FL (78-98); MEAN PLATELET VOLUME 8.3 FL (7.4-10.4); MONOCYTES # (AUTO) 0.3 X10'3 (0-0.9); MONOCYTES % (AUTO) 4.2 % (2-12); NEUTROPHILS # (AUTO) 5.4 X10'3 (1.8-7.7); NEUTROPHILS % (AUTO) 70.2 % (42-75); PLATELET COUNT 240 X10'3 (140-440); RED BLOOD COUNT 4.48 X10'6 (4.70-6.10); RED CELL DISTRIBUTION WIDTH 17.4 % (11.5-14.5); WHITE BLOOD COUNT 7.6 X10'3 (4.5-11.0)
[2023-07-30 14:45] LABS: ALANINE AMINOTRANSFERASE 33 U/L (12-78); ALBUMIN 3.8 G/DL (3.4-5.0); ALKALINE PHOSPHATASE 148 IU/L (46-116); ANION GAP 18 (8-16); ASPARTATE AMINO TRANSFERASE 36 U/L (10-37); BILIRUBIN,TOTAL 0.9 MG/DL (0.1-1.0); BLOOD UREA NITROGEN 11 MG/DL (7-18); BUN/CREATININE RATIO 10.6 (10.0-20.0); CALCIUM 9.8 MG/DL (8.5-10.1); CHLORIDE 99 MMOL/L (99-107); CREATININE 1.04 MG/DL (0.60-1.10); GLUCOSE 93 MG/DL (70-104); POTASSIUM 3.5 MMOL/L (3.5-5.1); SODIUM 135 MMOL/L (135-145); TOTAL CARBON DIOXIDE 17.8 MMOL/L (24-32); TOTAL PROTEIN 7.6 G/DL (6.4-8.2); eCRCL 63 ML/MIN; eGFR 69 ML/MIN
[2023-07-30 14:52] LABS: ETHANOL 102 MG/DL (<10)
[2023-07-30] MEDS ORDERED: ondansetron 4mg rapidly disintigrating tab PO ONE (16:50)
[2023-07-30] MEDS ORDERED: normal saline 1000ML IV soln IVB ONE (17:00)
[2023-07-30] MEDS ORDERED: diphenhydrAMINE 50 mg/ml inj IV ONE (17:15)
[2023-07-30] MEDS ORDERED: haloperidol lactate 5mg/ml inj IM ONE (17:15)
[2023-07-30] MEDS ORDERED: LORazepam 2 mg/ml vial IV ONE (17:15)
[2023-07-30] MEDS ORDERED: ondansetron/PF 4mg/2ml inj IV ONE (17:45)
[2023-07-30 19:06] LABS: BILIRUBIN,URINE NEGATIVE (Neg); CLARITY,URINE SLIGHTLY CLOUDY (Clear); COLOR,URINE YELLOW (Yellow); GLUCOSE, URINE NEGATIVE (Neg); KETONES,URINE 40 mg/dl (Neg); LEUKOCYTE ESTERASE ,URINE TRACE (Neg); NITRITES, URINE NEGATIVE (Neg); OCCULT BLOOD,URINE TRACE-INTACT (Neg); PROTEIN,URINE NEGATIVE (Neg); UROBILINOGEN,URINE 0.2 E.U/dL (0.2-1.0)
[2023-07-30 19:18] LABS: UA COLLECTION TYPE URINAL
[2023-07-30 19:20] LABS: BACTERIA,URINE 3+ /HPF (Neg); RBC,URINE 0-2 /HPF (0-2); SQUAMOUS EPITHELIAL CELL,UR FEW /LPF (FEW)
[2023-07-30 19:21] LABS: AMORPHOUS URATES 1+; URINE AMPHETAMINE SCREEN NEGATIVE (Neg); URINE BARBITUATE SCREEN NEGATIVE (Neg); URINE BENZODIAZEPINES SCREEN NEGATIVE (Neg); URINE CANNABINOID SCREEN NEGATIVE (Neg); URINE COCAINE SCREEN NEGATIVE (Neg); URINE METHADONE SCREEN NEGATIVE (Neg); URINE OPIATE SCREEN NEGATIVE (Neg); URINE PHENCYCLIDINE SCREEN NEGATIVE (Neg)
[2023-07-30] MEDS ORDERED: OLAN2.5T3 PO (20:40)
[2023-07-30] MEDS ORDERED: METO-395 PO (20:40)
[2023-07-30] MEDS ORDERED: LISI10TA27 PO (20:40)
[2023-07-30] MEDS ORDERED: VENLAFAXINE HCL PO (20:40)
[2023-07-30] MEDS ORDERED: LITH300C PO (20:40)
[2023-07-30] MEDS ORDERED: THIA50TA10 PO (20:40)
[2023-07-30] MEDS ORDERED: OMEP40CA21 PO (20:40)
[2023-07-30] MEDS ORDERED: NALT50TA PO (20:52)
[2023-07-30] MEDS ORDERED: PANT-47 PO (20:52)
[2023-07-30] MEDS ORDERED: PARO-153 PO (20:52)
[2023-07-30] MEDS ORDERED: HYDR-3686 PO (20:52)
[2023-07-30] MEDS ORDERED: DICL75TA5 PO (20:52)
[2023-07-30] MEDS ORDERED: REM30T PO (20:52)
[2023-07-30] MEDS ORDERED: METO-292 PO (20:52)
[2023-07-30] MEDS ORDERED: MIRT-142 PO (20:58)
[2023-07-30] MEDS ORDERED: VENL225T3 PO (20:59)
[2023-07-30] MEDS ORDERED: mag hydrox/Alum hydrox/simeth 30ml oral suspension PO ONE (21:15)
[2023-07-30] MEDS ORDERED: mirtazapine 15mg tablet PO ONE (21:30)
[2023-07-30] MEDS ORDERED: OLANZapine 2.5MG tablet PO ONE (21:30)
[2023-07-30] MEDS ORDERED: pantoprazole 40mg Tablet.DR PO ONE (21:35)
[2023-07-30] MEDS ORDERED: LORazepam 1 MG tablet PO ONE (23:15)
[2023-07-31] MEDS ORDERED: LORazepam 1 MG tablet PO ONE (00:50)
[2023-07-31 04:01] VITALS: BP_DIAS 98; RESP 16; O2SAT 95
[2023-07-31] MEDS ORDERED: pantoprazole 40mg Tablet.DR PO SCH (08:00)
[2023-07-31] MEDS ORDERED: lisinopril 10 MG tablet PO SCH (08:00)
[2023-07-31] MEDS ORDERED: metoprolol succinate 25mg (24-HOUR) SR. Tablet PO SCH (08:00)
[2023-07-31] MEDS ORDERED: naltrexone 50mg tablet PO SCH (08:00)
[2023-07-31] MEDS ORDERED: thiamine 100mg tablet PO SCH (08:00)
[2023-07-31] MEDS ORDERED: venlafaxine XR 75mg capsule (Q24H) PO SCH (08:00)
[2023-07-31 08:43] VITALS: BP_SYST 149; PULSE 73
[2023-07-31 12:48] VITALS: TEMP 97.9
[2023-07-31] MEDS ORDERED: mirtazapine 15mg tablet PO SCH (21:00)
[2023-07-31] MEDS ORDERED: OLANZapine 2.5MG tablet PO SCH (21:00)
== END 2023-07-31 12:50 | disposition home or self-care (01) ==
LOC: ER 13:41
DX: R45.851 Suicidal ideations (principal); Z20.822 Contact with and (suspected) exposure to COVID-19; R51.9 Headache, unspecified; R11.2 Nausea with vomiting, unspecified; R10.9 Unspecified abdominal pain; I10 Essential (primary) hypertension; F31.9 Bipolar disorder, unspecified; Z72.89 Other problems related to lifestyle; Z79.899 Other long term (current) drug therapy
CPT/HCPCS: 36415; 80053; 80305; 80320; 81001; 84443; 85025; 87811; 93005; 96361; 96372; 96374; 96375; 99285; J1200; J1630; J2060; J2405; J7030

== ENCOUNTER 2023-10-13 19:05 | Emergency (ER) | payer MEDICARE ==
[~2023-10-13] VITALS: Ht 175.3 cm; Wt 86.4 kg
[~2023-10-13 19:05] MED LIST changes: +OLAN2.5T28 PO; +TRAZ150T78 PO; -VENL150C4 PO; +VENL150T3 PO; -VENL75CA61 PO
[2023-10-13 19:27] VITALS: BP 119/79; PULSE 94; RESP 16; TEMP 97.9; O2SAT 99
[2023-10-13] MEDS: normal saline 1000ml 1,000 ML IV ONE (20:55)
[2023-10-13 21:33] LABS: HEMOGLOBIN 13.8 g/dl (14.0-17.9); MEAN PLATELET VOLUME 7.6 FL (7.4-10.4); WHITE BLOOD COUNT 4.2 X10'3 (4.5-11.0)
[2023-10-13 21:35] LABS: BASOPHILS % (AUTO) 0.7 % (0-1); EOSINOPHILS % (AUTO) 0.4 % (0-6); HEMATOCRIT 41.7 % (42.0-52.0); LYMPHOCYTES # (AUTO) 1.1 X10'3 (1.1-4.8); LYMPHOCYTES % (AUTO) 25.5 % (21-51); MEAN CORPUSCULAR HEMOGLOBIN 31.8 PG (27.0-31.0); MEAN CORPUSCULAR HGB CONC 33.2 g/dL (33.0-36.5); MONOCYTES # (AUTO) 0.4 X10'3 (0-0.9); MONOCYTES % (AUTO) 9.3 % (2-12); NEUTROPHILS # (AUTO) 2.7 X10'3 (1.8-7.7); NEUTROPHILS % (AUTO) 64.1 % (42-75); PLATELET COUNT 239 X10'3 (140-440); RED BLOOD COUNT 4.34 X10'6 (4.70-6.10); RED CELL DISTRIBUTION WIDTH 17.3 % (11.5-14.5)
[2023-10-13 21:45] LABS: ALANINE AMINOTRANSFERASE 65 U/L (12-78); ALBUMIN 3.9 G/DL (3.4-5.0); ALBUMIN/GLOBULIN RATIO 1.1 (1.1-1.5); ALKALINE PHOSPHATASE 100 IU/L (46-116); ANION GAP 7 (8-16); ASPARTATE AMINO TRANSFERASE 49 U/L (10-37); BILIRUBIN,TOTAL 0.6 MG/DL (0.1-1.0); BLOOD UREA NITROGEN 11 MG/DL (7-18); BUN/CREATININE RATIO 11.5 (10.0-20.0); CHLORIDE 103 MMOL/L (99-107); CREATININE 0.96 MG/DL (0.60-1.10); ETHANOL 104 MG/DL (<10); GLUCOSE 103 MG/DL (70-104); SODIUM 144 MMOL/L (135-145); TOTAL CARBON DIOXIDE 33.7 MMOL/L (24-32); TOTAL PROTEIN 7.5 G/DL (6.4-8.2); eCRCL 64 ML/MIN; eGFR 76 ML/MIN
[2023-10-13 21:58] LABS: POTASSIUM 2.8 MMOL/L (3.5-5.1)
[2023-10-13] MEDS: potassium bicarbonate/cit acid 25mEq tablet.effervescent PO SCH (22:28)
== END 2023-10-13 22:37 | disposition home or self-care (01) ==
LOC: ER 19:05
DX: F10.129 Alcohol abuse with intoxication, unspecified (principal); E87.6 Hypokalemia; F31.9 Bipolar disorder, unspecified; I10 Essential (primary) hypertension; Z79.899 Other long term (current) drug therapy
CPT/HCPCS: 36415; 80053; 80320; 85025; 99283; J7030

== ENCOUNTER 2023-10-25 10:28 | Emergency (ER) | payer MEDICARE ==
[~2023-10-25] VITALS: Ht 180.3 cm; Wt 80.0 kg
[2023-10-25] MEDS: ondansetron/PF 4mg/2ml inj IV ONE (12:30)
[2023-10-25] MEDS: ziprasidone IM 20mg inj **IM only IM ONE (12:30)
[2023-10-25 12:31] LABS: BASOPHILS % (AUTO) 0.7 % (0-1); EOSINOPHILS % (AUTO) 0.3 % (0-6); HEMATOCRIT 36.2 % (42.0-52.0); HEMOGLOBIN 11.8 g/dl (14.0-17.9); LYMPHOCYTES # (AUTO) 0.8 X10'3 (1.1-4.8); LYMPHOCYTES % (AUTO) 27.1 % (21-51); MEAN CORPUSCULAR HEMOGLOBIN 31.8 PG (27.0-31.0); MEAN CORPUSCULAR HGB CONC 32.5 g/dL (33.0-36.5); MEAN CORPUSCULAR VOLUME 97.8 FL (78-98); MEAN PLATELET VOLUME 8.3 FL (7.4-10.4); MONOCYTES # (AUTO) 0.3 X10'3 (0-0.9); MONOCYTES % (AUTO) 10.5 % (2-12); NEUTROPHILS # (AUTO) 1.9 X10'3 (1.8-7.7); NEUTROPHILS % (AUTO) 61.4 % (42-75); PLATELET COUNT 165 X10'3 (140-440); RED CELL DISTRIBUTION WIDTH 17.5 % (11.5-14.5); WHITE BLOOD COUNT 3.1 X10'3 (4.5-11.0)
[2023-10-25 13:41] LABS: ALBUMIN 3.3 G/DL (3.4-5.0); ANION GAP 12 (8-16); BLOOD UREA NITROGEN 13 MG/DL (7-18); BUN/CREATININE RATIO 16.9 (10.0-20.0); CALCIUM 8.2 MG/DL (8.5-10.1); CHLORIDE 111 MMOL/L (99-107); CREATININE 0.77 MG/DL (0.60-1.10); ETHANOL 79 MG/DL (<10); GLUCOSE 91 MG/DL (70-104); POTASSIUM 3.3 MMOL/L (3.5-5.1); SODIUM 148 MMOL/L (135-145); eCRCL 86 ML/MIN; eGFR > 90 ML/MIN
[2023-10-25 15:06] LABS: URINE AMPHETAMINE SCREEN NEGATIVE (Neg); URINE BARBITUATE SCREEN NEGATIVE (Neg); URINE BENZODIAZEPINES SCREEN NEGATIVE (Neg); URINE CANNABINOID SCREEN NEGATIVE (Neg); URINE COCAINE SCREEN NEGATIVE (Neg); URINE METHADONE SCREEN NEGATIVE (Neg); URINE OPIATE SCREEN NEGATIVE (Neg); URINE PHENCYCLIDINE SCREEN NEGATIVE (Neg)
[2023-10-25] MEDS ORDERED: NALT50TA PO (19:10)
[2023-10-25] MEDS ORDERED: VENL150T3 PO (19:10)
[2023-10-25] MEDS ORDERED: METO-395 PO (19:10)
[2023-10-25] MEDS ORDERED: OLAN2.5T3 PO (19:10)
[2023-10-25] MEDS ORDERED: MULT1TAB71 PO (19:10)
[2023-10-25] MEDS ORDERED: LISI20TA28 PO (19:10)
[2023-10-25] MEDS ORDERED: TRAZ150T78 PO (19:10)
[2023-10-25] MEDS ORDERED: PANT-47 PO (19:10)
[2023-10-25] MEDS ORDERED: MIRT-142 PO (19:10)
[2023-10-25] MEDS: ondansetron 4mg rapidly disintigrating tab PO PRN (19:23)
[2023-10-25] MEDS: mirtazapine 15mg tablet PO SCH (20:29)
[2023-10-25] MEDS: OLANZapine 2.5MG tablet PO SCH (20:29)
[2023-10-25] MEDS: traZODone 150mg tablet PO SCH (20:29)
[2023-10-25] MEDS: ondansetron 4mg rapidly disintigrating tab PO ONE (20:32)
[2023-10-25] MEDS: LORazepam 1 MG tablet PO ONE (21:57)
[2023-10-26] MEDS: LORazepam 1 MG tablet PO ONE (03:08)
[2023-10-26 05:57] VITALS: BP_DIAS 90; RESP 20; TEMP 98.8; O2SAT 94
[2023-10-26 07:09] LABS: BILIRUBIN,URINE NEGATIVE (Neg); CLARITY,URINE SLIGHTLY CLOUDY (Clear); COLOR,URINE YELLOW (Yellow); GLUCOSE, URINE NEGATIVE (Neg); KETONES,URINE NEGATIVE (Neg); LEUKOCYTE ESTERASE ,URINE LARGE (Neg); NITRITES, URINE NEGATIVE (Neg); OCCULT BLOOD,URINE TRACE-INTACT (Neg); PH,URINE 7.5 (4.8-8.0); PROTEIN,URINE NEGATIVE (Neg)
[2023-10-26 07:19] LABS: UA COLLECTION TYPE CLN CATCH MIDSTREAM
[2023-10-26 07:21] LABS: MUCUS STRANDS FEW /LPF (Neg); SQUAMOUS EPITHELIAL CELL,UR FEW /LPF (FEW); WBC,URINE TNTC /HPF (0-4)
[2023-10-26 07:22] LABS: BACTERIA,URINE FEW /HPF (Neg)
[2023-10-26 07:25] LABS: CAL OXALATE CRYSTALS 4+ /HPF (NEGATIVE)
[2023-10-26] MEDS: venlafaxine XR 75mg capsule (Q24H) PO SCH (08:18)
[2023-10-26] MEDS: multivitamins, therapeutics tablet PO SCH (08:18)
[2023-10-26 08:19] VITALS: BP_SYST 150; PULSE 80
[2023-10-26] MEDS: pantoprazole 40mg Tablet.DR PO SCH (08:19)
[2023-10-26] MEDS: metoprolol succinate 25mg (24-HOUR) SR. Tablet PO SCH (08:19)
[2023-10-26] MEDS: naltrexone 50mg tablet PO SCH (08:19)
[2023-10-26] MEDS: lisinopril 10 MG tablet PO SCH (08:19)
== END 2023-10-26 10:20 | disposition still patient (30) ==
LOC: ER 10:29
DX: R45.851 Suicidal ideations (principal); Z20.822 Contact with and (suspected) exposure to COVID-19; F10.129 Alcohol abuse with intoxication, unspecified; I10 Essential (primary) hypertension; F31.9 Bipolar disorder, unspecified; Z88.1 Allergy status to other antibiotic agents; Z88.8 Allergy status to other drugs, medicaments and biological substances; Z79.899 Other long term (current) drug therapy; Y90.3 Blood alcohol level of 60-79 mg/100 ml
CPT/HCPCS: 36415; 80048; 80305; 80320; 81001; 85025; 87077; 87088; 87186; 87811; 96372; 96374; 99285; J2405; J3486

== ENCOUNTER 2024-03-25 05:04 | Inpatient (IN) | payer MEDICARE ==
[~2024-03-25] VITALS: Ht 170.2 cm; Wt 72.7 kg
[~2024-03-25 05:04] MED LIST changes: +FOLI1TAB27 PO; +MIRT-142 PO; -MIRT-87 PO; -NALT50TA PO; +NALT50TA5 PO; -OLAN2.5T28 PO; +OLAN2.5T3 PO; +ONDA-243; +PANT-47 PO; -PANT40TA54 PO; +THIA50TA10 PO
[2024-03-25] MEDS: ondansetron 4mg rapidly disintigrating tab PO ONE (05:13)
[2024-03-25 05:54] LABS: BASOPHILS % (AUTO) 0.5 % (0-1); EOSINOPHILS % (AUTO) 0.1 % (0-6); HEMATOCRIT 38.8 % (42.0-52.0); HEMOGLOBIN 12.7 g/dl (14.0-17.9); LYMPHOCYTES # (AUTO) 1.2 X10'3 (1.1-4.8); LYMPHOCYTES % (AUTO) 24.1 % (21-51); MEAN CORPUSCULAR HEMOGLOBIN 31.8 PG (27.0-31.0); MEAN CORPUSCULAR HGB CONC 32.8 g/dL (33.0-36.5); MEAN PLATELET VOLUME 7.7 FL (7.4-10.4); MONOCYTES # (AUTO) 0.4 X10'3 (0-0.9); MONOCYTES % (AUTO) 7.4 % (2-12); NEUTROPHILS # (AUTO) 3.3 X10'3 (1.8-7.7); NEUTROPHILS % (AUTO) 67.9 % (42-75); PLATELET COUNT 178 X10'3 (140-440); RED CELL DISTRIBUTION WIDTH 16.2 % (11.5-14.5); WHITE BLOOD COUNT 4.8 X10'3 (4.5-11.0)
[2024-03-25 06:11] LABS: APTT 27 SECONDS (22-32); PROTHROMBIN TIME 10.6 SECONDS (9.0-12.0)
[2024-03-25] MEDS: dextrose 5%-1/2 normal saline 1,000 ML IV ONE (06:11)
[2024-03-25] MEDS: ondansetron/PF 4mg/2ml inj IV ONE (06:15)
[2024-03-25 06:18] LABS: ANION GAP 14 (8-16); BLOOD UREA NITROGEN 14 MG/DL (7-18); BUN/CREATININE RATIO 15.6 (10.0-20.0); CALCIUM 9.2 MG/DL (8.5-10.1); CHLORIDE 101 MMOL/L (99-107); ETHANOL 123 MG/DL (<10); GLUCOSE 70 MG/DL (70-104); SODIUM 136 MMOL/L (135-145); TOTAL CARBON DIOXIDE 20.9 MMOL/L (24-32); eCRCL 64 ML/MIN; eGFR 82 ML/MIN
[2024-03-25 06:21] LABS: POTASSIUM 4.3 MMOL/L (3.5-5.1)
[2024-03-25] MEDS: LORazepam 2 mg/ml vial IV ONE ×2 (06:31→10:23)
[2024-03-25 06:41] LABS: ALANINE AMINOTRANSFERASE 51 U/L (12-78); ALBUMIN/GLOBULIN RATIO 1.1 (1.1-1.5); ALKALINE PHOSPHATASE 105 IU/L (46-116); BILIRUBIN,TOTAL 0.6 MG/DL (0.1-1.0); TOTAL PROTEIN 7.5 G/DL (6.4-8.2)
[2024-03-25 06:51] LABS: ASPARTATE AMINO TRANSFERASE 71 U/L (10-37); BILIRUBIN,DIRECT 0.1 MG/DL (0-0.3)
[2024-03-25] MEDS: normal saline 1000ML IV soln IVB ONE (07:19)
[2024-03-25] MEDS ORDERED: magnesium sulf-water 2g/50mL 50 ML IV PRN ×2 (08:15)
[2024-03-25] MEDS: dextrose 5%-1/2 normal saline 1,000 ML IV SCH (08:15)
[2024-03-25] MEDS ORDERED: dextrose 50%-water 50ml dispensing syringe IV PRN (08:15)
[2024-03-25] MEDS ORDERED: magnesium sulf-water 4G/100mL 100 ML IV PRN ×2 (08:15)
[2024-03-25] MEDS ORDERED: potassium Cl 20 mEq SR tablet PO PRN ×2 (08:15)
[2024-03-25] MEDS ORDERED: magnesium Cl slow-release 64mg tablet PO PRN ×2 (08:15)
[2024-03-25 10:00] LABS: POTASSIUM 4.1 MMOL/L (3.5-5.1)
[2024-03-25] MEDS: haloperidol 5mg tablet PO PRN (13:25)
[2024-03-25 14:15] LABS: BILIRUBIN,URINE NEGATIVE (Neg); CLARITY,URINE CLEAR (Clear); COLOR,URINE YELLOW (Yellow); GLUCOSE, URINE NEGATIVE (Neg); KETONES,URINE 40 mg/dl (Neg); LEUKOCYTE ESTERASE ,URINE NEGATIVE (Neg); NITRITES, URINE POSITIVE (Neg); OCCULT BLOOD,URINE TRACE-INTACT (Neg); PROTEIN,URINE NEGATIVE (Neg); UROBILINOGEN,URINE 0.2 E.U/dL (0.2-1.0)
[2024-03-25 14:18] LABS: URINE AMPHETAMINE SCREEN NEGATIVE (Neg); URINE BARBITUATE SCREEN NEGATIVE (Neg); URINE BENZODIAZEPINES SCREEN NEGATIVE (Neg); URINE CANNABINOID SCREEN NEGATIVE (Neg); URINE COCAINE SCREEN NEGATIVE (Neg); URINE METHADONE SCREEN NEGATIVE (Neg); URINE OPIATE SCREEN NEGATIVE (Neg); URINE PHENCYCLIDINE SCREEN NEGATIVE (Neg)
[2024-03-25 14:23] LABS: UA COLLECTION TYPE CLN CATCH MIDSTREAM
[2024-03-25 14:44] LABS: AMORPHOUS URATES 1+; BACTERIA,URINE FEW /HPF (Neg); FINE GRANULAR CAST 0-3 /LPF (NEGATIVE); HYALINE CASTS 0-3 /LPF (NEGATIVE); MUCUS STRANDS FEW /LPF (Neg); SQUAMOUS EPITHELIAL CELL,UR FEW /LPF (FEW); TRANSITIONAL EPI CELLS,URINE FEW /HPF
[2024-03-25 14:45] LABS: RBC,URINE NONE SEEN /HPF (0-2)
[2024-03-25 15:00] VITALS: BP 147/88; PULSE 90; RESP 18; TEMP 98.9; O2SAT 95
[2024-03-25 15:30] VITALS: RESP 18; O2SAT 98
[2024-03-25] MEDS: thiamine 100mg/ml 2ml inj. IV SCH (15:51)
[2024-03-25] MEDS: LORazepam 1 MG tablet PO PRN (15:51)
[2024-03-25] MEDS: folic acid 1mg/0.2ml inj IV SCH (17:00)
[2024-03-25 18:00] VITALS: BP 131/72; PULSE 89; RESP 22; TEMP 97.2; O2SAT 93
[2024-03-25] MEDS: ondansetron/PF 4mg/2ml inj IV PRN (19:35)
[2024-03-25] MEDS: acetaminophen 325mg tablet PO PRN (19:35)
[2024-03-25] MEDS: LORazepam 2 mg/ml vial IV PRN (19:36)
[2024-03-25 20:00] VITALS: RESP 18; O2SAT 98
[2024-03-25] MEDS: K and/or MAG REPLACEMENT MC SCH (20:00)
[2024-03-25 22:00] VITALS: BP 136/92; PULSE 82; RESP 19; TEMP 98.1; O2SAT 93
[2024-03-25] MEDS: haloperidol lactate 5mg/ml inj IM PRN (23:43)
[2024-03-26] VITALS (7 sets, daily range): BP systolic 119–150; BP diastolic 68–88; PULSE 72–86; RESP 16–20; TEMP 97.3–97.7; O2SAT 93–98
[2024-03-26 06:57] LABS: BASOPHILS % (AUTO) 0.3 % (0-1); EOSINOPHILS % (AUTO) 0.1 % (0-6); HEMATOCRIT 38.1 % (42.0-52.0); HEMOGLOBIN 12.3 g/dl (14.0-17.9); LYMPHOCYTES # (AUTO) 0.8 X10'3 (1.1-4.8); LYMPHOCYTES % (AUTO) 17.2 % (21-51); MEAN CORPUSCULAR HEMOGLOBIN 31.4 PG (27.0-31.0); MEAN CORPUSCULAR HGB CONC 32.3 g/dL (33.0-36.5); MEAN CORPUSCULAR VOLUME 97.3 FL (78-98); MEAN PLATELET VOLUME 7.7 FL (7.4-10.4); MONOCYTES # (AUTO) 0.5 X10'3 (0-0.9); MONOCYTES % (AUTO) 10.5 % (2-12); NEUTROPHILS # (AUTO) 3.4 X10'3 (1.8-7.7); NEUTROPHILS % (AUTO) 71.9 % (42-75); PLATELET COUNT 154 X10'3 (140-440); RED BLOOD COUNT 3.91 X10'6 (4.70-6.10); RED CELL DISTRIBUTION WIDTH 15.9 % (11.5-14.5); WHITE BLOOD COUNT 4.7 X10'3 (4.5-11.0)
[2024-03-26 06:58] LABS: ALBUMIN 3.2 G/DL (3.4-5.0); ANION GAP 7 (8-16); BLOOD UREA NITROGEN 13 MG/DL (7-18); BUN/CREATININE RATIO 14.8 (10.0-20.0); CALCIUM 9.1 MG/DL (8.5-10.1); CHLORIDE 104 MMOL/L (99-107); CREATININE 0.88 MG/DL (0.60-1.10); GLUCOSE 118 MG/DL (70-104); MAGNESIUM 1.8 MG/DL (1.5-2.4); POTASSIUM 3.6 MMOL/L (3.5-5.1); SODIUM 138 MMOL/L (135-145); TOTAL CARBON DIOXIDE 27.5 MMOL/L (24-32); eCRCL 66 ML/MIN; eGFR 84 ML/MIN
[2024-03-26] MEDS: multivitamins, therapeutics tablet PO SCH (14:39)
[2024-03-26] MEDS: lisinopril 10 MG tablet PO SCH (14:39)
[2024-03-26] MEDS: folic acid 1mg tablet PO SCH (14:39)
[2024-03-26] MEDS: metoprolol succinate 25mg (24-HOUR) SR. Tablet PO SCH (14:40)
[2024-03-26] MEDS: traZODone 150mg tablet PO SCH (20:10)
[2024-03-26] MEDS: OLANZapine 2.5MG tablet PO SCH (20:10)
[2024-03-26] MEDS: naltrexone 50mg tablet PO SCH (20:11)
[2024-03-26] MEDS: mirtazapine 15mg tablet PO SCH (20:12)
[2024-03-27] VITALS (7 sets, daily range): BP systolic 120–144; BP diastolic 75–95; PULSE 69–87; RESP 16–20; TEMP 97.2–97.8; O2SAT 94–98
[2024-03-27 07:00] LABS: BASOPHILS % (AUTO) 0.2 % (0-1); EOSINOPHILS % (AUTO) 0.3 % (0-6); HEMATOCRIT 38.9 % (42.0-52.0); HEMOGLOBIN 12.7 g/dl (14.0-17.9); LYMPHOCYTES % (AUTO) 16.4 % (21-51); MEAN CORPUSCULAR HEMOGLOBIN 31.9 PG (27.0-31.0); MEAN CORPUSCULAR HGB CONC 32.6 g/dL (33.0-36.5); MEAN CORPUSCULAR VOLUME 97.8 FL (78-98); MEAN PLATELET VOLUME 8.2 FL (7.4-10.4); MONOCYTES # (AUTO) 0.7 X10'3 (0-0.9); MONOCYTES % (AUTO) 11.4 % (2-12); NEUTROPHILS # (AUTO) 4.4 X10'3 (1.8-7.7); NEUTROPHILS % (AUTO) 71.7 % (42-75); PLATELET COUNT 151 X10'3 (140-440); RED BLOOD COUNT 3.98 X10'6 (4.70-6.10); RED CELL DISTRIBUTION WIDTH 16.2 % (11.5-14.5); WHITE BLOOD COUNT 6.1 X10'3 (4.5-11.0)
[2024-03-27 07:29] LABS: ALBUMIN 3.4 G/DL (3.4-5.0); ANION GAP 5 (8-16); BLOOD UREA NITROGEN 8 MG/DL (7-18); CALCIUM 9.3 MG/DL (8.5-10.1); CHLORIDE 106 MMOL/L (99-107); CREATININE 0.89 MG/DL (0.60-1.10); GLUCOSE 143 MG/DL (70-104); MAGNESIUM 1.8 MG/DL (1.5-2.4); POTASSIUM 3.3 MMOL/L (3.5-5.1); SODIUM 139 MMOL/L (135-145); TOTAL CARBON DIOXIDE 28.3 MMOL/L (24-32); eCRCL 65 ML/MIN; eGFR 83 ML/MIN
[2024-03-27] MEDS: pantoprazole 40mg Tablet.DR PO SCH (09:17)
[2024-03-27] MEDS: venlafaxine XR 75mg capsule (Q24H) PO SCH (09:19)
[2024-03-27] MEDS: potassium Cl 40MEQ/1/2NS 520ml 520 ML IV PRN (22:08)
[2024-03-28] VITALS (8 sets, daily range): BP systolic 96–162; BP diastolic 55–84; PULSE 64–77; RESP 13–20; TEMP 97.1–98.1; O2SAT 97–98
[2024-03-28 07:21] LABS: BASOPHILS % (AUTO) 0.3 % (0-1); EOSINOPHILS # (AUTO) 0.1 X10'3 (0-0.9); EOSINOPHILS % (AUTO) 2.2 % (0-6); HEMATOCRIT 41.2 % (42.0-52.0); HEMOGLOBIN 13.4 g/dl (14.0-17.9); LYMPHOCYTES % (AUTO) 21.4 % (21-51); MEAN CORPUSCULAR HEMOGLOBIN 32.3 PG (27.0-31.0); MEAN CORPUSCULAR HGB CONC 32.6 g/dL (33.0-36.5); MEAN PLATELET VOLUME 8.9 FL (7.4-10.4); MONOCYTES # (AUTO) 0.5 X10'3 (0-0.9); MONOCYTES % (AUTO) 11.2 % (2-12); NEUTROPHILS # (AUTO) 3.2 X10'3 (1.8-7.7); NEUTROPHILS % (AUTO) 64.9 % (42-75); PLATELET COUNT 137 X10'3 (140-440); RED BLOOD COUNT 4.16 X10'6 (4.70-6.10); RED CELL DISTRIBUTION WIDTH 15.9 % (11.5-14.5); WHITE BLOOD COUNT 4.9 X10'3 (4.5-11.0)
[2024-03-28 07:40] LABS: ALBUMIN 3.2 G/DL (3.4-5.0); ANION GAP 6 (8-16); BLOOD UREA NITROGEN 6 MG/DL (7-18); BUN/CREATININE RATIO 7.4 (10.0-20.0); CALCIUM 9.4 MG/DL (8.5-10.1); CHLORIDE 106 MMOL/L (99-107); CREATININE 0.81 MG/DL (0.60-1.10); GLUCOSE 111 MG/DL (70-104); MAGNESIUM 1.9 MG/DL (1.5-2.4); POTASSIUM 3.8 MMOL/L (3.5-5.1); SODIUM 138 MMOL/L (135-145); TOTAL CARBON DIOXIDE 26.3 MMOL/L (24-32); eCRCL 71 ML/MIN; eGFR > 90 ML/MIN
[2024-03-29] VITALS (8 sets, daily range): BP systolic 105–138; BP diastolic 63–80; PULSE 59–75; RESP 15–20; TEMP 97.3–98.5; O2SAT 96–100
[2024-03-29] MEDS: LORazepam 2 mg/ml vial IV PRN (01:04)
[2024-03-29 06:25] LABS: BASOPHILS % (AUTO) 0.5 % (0-1); EOSINOPHILS # (AUTO) 0.1 X10'3 (0-0.9); EOSINOPHILS % (AUTO) 2.1 % (0-6); HEMATOCRIT 37.9 % (42.0-52.0); HEMOGLOBIN 12.2 g/dl (14.0-17.9); LYMPHOCYTES # (AUTO) 1.1 X10'3 (1.1-4.8); LYMPHOCYTES % (AUTO) 21.6 % (21-51); MEAN CORPUSCULAR HEMOGLOBIN 31.7 PG (27.0-31.0); MEAN CORPUSCULAR HGB CONC 32.2 g/dL (33.0-36.5); MEAN CORPUSCULAR VOLUME 98.5 FL (78-98); MONOCYTES # (AUTO) 0.5 X10'3 (0-0.9); MONOCYTES % (AUTO) 10.1 % (2-12); NEUTROPHILS # (AUTO) 3.3 X10'3 (1.8-7.7); NEUTROPHILS % (AUTO) 65.7 % (42-75); PLATELET COUNT 125 X10'3 (140-440); RED BLOOD COUNT 3.84 X10'6 (4.70-6.10)
[2024-03-29 06:31] LABS: ALBUMIN 2.7 G/DL (3.4-5.0); ANION GAP 3 (8-16); BLOOD UREA NITROGEN 10 MG/DL (7-18); BUN/CREATININE RATIO 11.4 (10.0-20.0); CALCIUM 9.2 MG/DL (8.5-10.1); CHLORIDE 107 MMOL/L (99-107); CREATININE 0.88 MG/DL (0.60-1.10); GLUCOSE 115 MG/DL (70-104); MAGNESIUM 1.8 MG/DL (1.5-2.4); POTASSIUM 3.7 MMOL/L (3.5-5.1); SODIUM 139 MMOL/L (135-145); TOTAL CARBON DIOXIDE 28.6 MMOL/L (24-32); eCRCL 66 ML/MIN; eGFR 84 ML/MIN
[2024-03-29] MEDS ORDERED: folic acid 1mg tablet PO SCH (08:00)
[2024-03-29] MEDS: thiamine 100mg tablet PO SCH (08:50)
[2024-03-30] VITALS (10 sets, daily range): BP systolic 95–192; BP diastolic 52–103; PULSE 60–118; RESP 12–18; TEMP 97.1–98.9; O2SAT 92–99
[2024-03-30 06:15] LABS: ALBUMIN 2.7 G/DL (3.4-5.0); ANION GAP 5 (8-16); BLOOD UREA NITROGEN 11 MG/DL (7-18); BUN/CREATININE RATIO 12.6 (10.0-20.0); CALCIUM 9.1 MG/DL (8.5-10.1); CHLORIDE 108 MMOL/L (99-107); CREATININE 0.87 MG/DL (0.60-1.10); GLUCOSE 117 MG/DL (70-104); POTASSIUM 3.6 MMOL/L (3.5-5.1); SODIUM 141 MMOL/L (135-145); TOTAL CARBON DIOXIDE 28.1 MMOL/L (24-32); eCRCL 66 ML/MIN; eGFR 85 ML/MIN
[2024-03-30 06:16] LABS: BASOPHILS % (AUTO) 0.5 % (0-1); EOSINOPHILS # (AUTO) 0.1 X10'3 (0-0.9); EOSINOPHILS % (AUTO) 1.6 % (0-6); HEMATOCRIT 36.8 % (42.0-52.0); HEMOGLOBIN 12.1 g/dl (14.0-17.9); LYMPHOCYTES # (AUTO) 1.2 X10'3 (1.1-4.8); LYMPHOCYTES % (AUTO) 22.6 % (21-51); MEAN CORPUSCULAR HEMOGLOBIN 32.5 PG (27.0-31.0); MEAN CORPUSCULAR VOLUME 98.7 FL (78-98); MEAN PLATELET VOLUME 8.3 FL (7.4-10.4); MONOCYTES # (AUTO) 0.6 X10'3 (0-0.9); MONOCYTES % (AUTO) 11.5 % (2-12); NEUTROPHILS # (AUTO) 3.3 X10'3 (1.8-7.7); NEUTROPHILS % (AUTO) 63.8 % (42-75); PLATELET COUNT 119 X10'3 (140-440); RED BLOOD COUNT 3.72 X10'6 (4.70-6.10); RED CELL DISTRIBUTION WIDTH 16.2 % (11.5-14.5); WHITE BLOOD COUNT 5.1 X10'3 (4.5-11.0)
[2024-03-30] MEDS: lactose-reduced food (Ensure High Protein) 237ml bottle PO SCH (17:57)
[2024-03-31 02:00] VITALS: BP 146/55; PULSE 74; RESP 15; TEMP 98.2; O2SAT 98
[2024-03-31 06:00] VITALS: BP 99/61; PULSE 59; RESP 12; TEMP 97.6; O2SAT 96
[2024-03-31 11:00] VITALS: BP 137/78; PULSE 81; RESP 16; TEMP 97.3; O2SAT 99
[2024-03-31 15:00] VITALS: BP 93/58; PULSE 74; RESP 15; TEMP 98; O2SAT 96
[2024-03-31 18:00] VITALS: BP 126/73; PULSE 75; RESP 16; TEMP 98.1; O2SAT 98
[2024-03-31 22:00] VITALS: BP 96/63; PULSE 80; RESP 15; TEMP 97.3; O2SAT 98
[2024-04-01 02:00] VITALS: BP 131/74; PULSE 71; RESP 17; TEMP 97.2; O2SAT 98
[2024-04-01 06:00] VITALS: BP 152/87; PULSE 63; RESP 14; TEMP 97.8; O2SAT 98
[2024-04-01 11:00] VITALS: BP 129/76; PULSE 71; RESP 18; TEMP 98.2; O2SAT 98
== END 2024-04-01 12:56 | disposition home health service (06) | DRG 917 ==
LOC: ER 05:05 → ED HOLD 08:24 → PCU 3S 14:30
PROVIDERS: ADMIT Internal Medicine; ATTEND Internal Medicine
DX: T51.0X1A Toxic effect of ethanol, accidental (unintentional), initial encounter (principal); G93.41 Metabolic encephalopathy; E87.20 Acidosis, unspecified; R45.851 Suicidal ideations; F10.239 Alcohol dependence with withdrawal, unspecified; F10.229 Alcohol dependence with intoxication, unspecified; F41.9 Anxiety disorder, unspecified; I10 Essential (primary) hypertension; Z20.822 Contact with and (suspected) exposure to COVID-19; E11.9 Type 2 diabetes mellitus without complications; E78.00 Pure hypercholesterolemia, unspecified; Z88.1 Allergy status to other antibiotic agents; Y92.9 Unspecified place or not applicable; Y90.6 Blood alcohol level of 120-199 mg/100 ml
CPT/HCPCS: 36415; 70450; 71045; 71250; 80048; 80076; 80305; 80320; 81001; 82948; 83605; 83735; 84132; 84145; 84484; 85025; 85610; 85730; 87040; 87077; 87081; 87088; 87186; 87811; 93005; 96365; 97116; 97162; 97530; 99285; A4615; A6590; G0378; J1630; J2060; J2405; J3411; J3480; J3490; J7030; J7042

== ENCOUNTER → 2024-04-05 | Emergency (ER) | payer MEDICARE ==
[~2024-04-05] VITALS: Ht 172.7 cm; Wt 70.0 kg
[~2024-04-05] MED LIST changes: +DIAZ5TAB22 PO; +DIAZ5TAB5 PO; +LORazepam 2 mg/ml vial IM PRN; +LORazepam 2 mg/ml vial IV PRN; +ONDA-243 PO
[2024-04-05] MEDS: ondansetron 4mg rapidly disintigrating tab PO ONE (16:06)
[2024-04-05 16:33] LABS: BASOPHILS % (AUTO) 0.2 % (0-1); EOSINOPHILS % (AUTO) 0.1 % (0-6); HEMATOCRIT 40.8 % (42.0-52.0); HEMOGLOBIN 13.3 g/dl (14.0-17.9); MEAN CORPUSCULAR HEMOGLOBIN 31.6 PG (27.0-31.0); MEAN CORPUSCULAR HGB CONC 32.6 g/dL (33.0-36.5); MEAN PLATELET VOLUME 8.3 FL (7.4-10.4); MONOCYTES # (AUTO) 0.5 X10'3 (0-0.9); MONOCYTES % (AUTO) 9.4 % (2-12); NEUTROPHILS # (AUTO) 4.3 X10'3 (1.8-7.7); NEUTROPHILS % (AUTO) 73.3 % (42-75); PLATELET COUNT 214 X10'3 (140-440); RED BLOOD COUNT 4.21 X10'6 (4.70-6.10); RED CELL DISTRIBUTION WIDTH 15.6 % (11.5-14.5); WHITE BLOOD COUNT 5.8 X10'3 (4.5-11.0)
[2024-04-05 16:34] LABS: ALBUMIN 3.8 G/DL (3.4-5.0); ANION GAP 9 (8-16); BLOOD UREA NITROGEN 10 MG/DL (7-18); BUN/CREATININE RATIO 10.8 (10.0-20.0); CALCIUM 9.8 MG/DL (8.5-10.1); CHLORIDE 100 MMOL/L (99-107); CREATININE 0.93 MG/DL (0.60-1.10); ETHANOL < 10 MG/DL (<10); GLUCOSE 150 MG/DL (70-104); POTASSIUM 3.3 MMOL/L (3.5-5.1); SODIUM 133 MMOL/L (135-145); TOTAL CARBON DIOXIDE 23.8 MMOL/L (24-32); eCRCL 64 ML/MIN; eGFR 79 ML/MIN
[2024-04-05] MEDS: LORazepam 2 mg/ml vial IV PRN (17:06)
[2024-04-05] MEDS: normal saline 1000ML IV soln IVB ONE (17:06)
[2024-04-05 17:16] LABS: URINE AMPHETAMINE SCREEN NEGATIVE (Neg); URINE BARBITUATE SCREEN NEGATIVE (Neg); URINE BENZODIAZEPINES SCREEN NEGATIVE (Neg); URINE CANNABINOID SCREEN NEGATIVE (Neg); URINE COCAINE SCREEN NEGATIVE (Neg); URINE METHADONE SCREEN NEGATIVE (Neg); URINE OPIATE SCREEN NEGATIVE (Neg); URINE PHENCYCLIDINE SCREEN NEGATIVE (Neg)
[2024-04-05 17:22] LABS: MAGNESIUM 1.7 MG/DL (1.5-2.4); PHOSPHORUS 2.8 MG/DL (2.3-4.5)
[2024-04-05] MEDS: potassium Cl 20 mEq SR tablet PO STA (17:30)
[2024-04-05] MEDS: folic acid 1mg/0.2ml inj IV ONE (18:02)
[2024-04-05] MEDS: magnesium sulf-water 2g/50mL 50 ML IV ONE (18:43)
[2024-04-05] MEDS: thiamine 100mg/ml 2ml inj. IV ONE (18:43)
[2024-04-05] MEDS: haloperidol 5mg tablet PO PRN (22:50)
[2024-04-06 05:24] VITALS: BP 136/90; PULSE 72; TEMP 98.6; O2SAT 95
[2024-04-06] MEDS: LORazepam 1 MG tablet PO PRN (07:06)
[2024-04-06 08:21] VITALS: RESP 16
== END | disposition home or self-care (01) ==
LOC: ER 15:35
DX: F10.10 Alcohol abuse, uncomplicated (principal); Z20.822 Contact with and (suspected) exposure to COVID-19; F60.9 Personality disorder, unspecified; R45.851 Suicidal ideations; E78.00 Pure hypercholesterolemia, unspecified; I10 Essential (primary) hypertension; E11.9 Type 2 diabetes mellitus without complications; F31.9 Bipolar disorder, unspecified; Z88.1 Allergy status to other antibiotic agents; Z79.899 Other long term (current) drug therapy; Y90.9 Presence of alcohol in blood, level not specified
CPT/HCPCS: 36415; 80048; 80305; 83735; 84100; 85025; 87811; 96361; 96365; 96366; 96375; 96376; 99284; G0480; J2060; J3411; J3490; J7030; 80320; 99285

== ENCOUNTER 2024-04-09 15:44 | Emergency (ER) | payer MEDICARE ==
[~2024-04-09] VITALS: Ht 180.3 cm; Wt 80.8 kg
[~2024-04-09 15:44] MED LIST changes: -DIAZ5TAB22 PO; -DIAZ5TAB5 PO; -LORazepam 2 mg/ml vial IM PRN; -LORazepam 2 mg/ml vial IV PRN; -ONDA-243 PO
[2024-04-09 15:46] VITALS: TEMP 98.7
[2024-04-09] MEDS ORDERED: DIAZ5TAB22 PO (16:11)
[2024-04-09] MEDS: diazepam 5mg tablet PO ONE (16:16)
[2024-04-09 16:56] LABS: BASOPHILS % (AUTO) 0.5 % (0-1); EOSINOPHILS % (AUTO) 0.2 % (0-6); HEMATOCRIT 40.2 % (42.0-52.0); HEMOGLOBIN 13.2 g/dl (14.0-17.9); LYMPHOCYTES # (AUTO) 1.3 X10'3 (1.1-4.8); LYMPHOCYTES % (AUTO) 21.8 % (21-51); MEAN CORPUSCULAR HEMOGLOBIN 31.7 PG (27.0-31.0); MEAN CORPUSCULAR HGB CONC 32.8 g/dL (33.0-36.5); MEAN CORPUSCULAR VOLUME 96.7 FL (78-98); MEAN PLATELET VOLUME 7.5 FL (7.4-10.4); MONOCYTES # (AUTO) 0.3 X10'3 (0-0.9); NEUTROPHILS # (AUTO) 4.2 X10'3 (1.8-7.7); NEUTROPHILS % (AUTO) 72.5 % (42-75); PLATELET COUNT 278 X10'3 (140-440); RED BLOOD COUNT 4.16 X10'6 (4.70-6.10); RED CELL DISTRIBUTION WIDTH 15.8 % (11.5-14.5); WHITE BLOOD COUNT 5.8 X10'3 (4.5-11.0)
[2024-04-09 17:04] LABS: ALANINE AMINOTRANSFERASE 45 U/L (12-78); ALBUMIN 3.5 G/DL (3.4-5.0); ALBUMIN/GLOBULIN RATIO 0.9 (1.1-1.5); ALKALINE PHOSPHATASE 130 IU/L (46-116); ANION GAP 9 (8-16); ASPARTATE AMINO TRANSFERASE 41 U/L (10-37); BILIRUBIN,TOTAL 0.4 MG/DL (0.1-1.0); BLOOD UREA NITROGEN 7 MG/DL (7-18); BUN/CREATININE RATIO 7.1 (10.0-20.0); CALCIUM 9.4 MG/DL (8.5-10.1); CHLORIDE 107 MMOL/L (99-107); CREATININE 0.99 MG/DL (0.60-1.10); GLUCOSE 98 MG/DL (70-104); MAGNESIUM 2.2 MG/DL (1.5-2.4); POTASSIUM 3.9 MMOL/L (3.5-5.1); SODIUM 142 MMOL/L (135-145); TOTAL CARBON DIOXIDE 25.9 MMOL/L (24-32); TOTAL PROTEIN 7.2 G/DL (6.4-8.2); eCRCL 66 ML/MIN; eGFR 73 ML/MIN
[2024-04-09 18:09] VITALS: BP 127/77; PULSE 75; RESP 16; O2SAT 94
[2024-05-19] MEDS ORDERED: LITH150C8 PO (11:05)
[2024-05-19] MEDS ORDERED: PARO-153 PO (11:05)
[2024-05-19] MEDS ORDERED: METO-292 PO (11:05)
[2024-05-19] MEDS ORDERED: HYDR-3686 PO (11:05)
[2024-05-19] MEDS ORDERED: THIA100T73 PO (11:05)
[2024-05-19] MEDS ORDERED: ACAM333T8 PO (11:05)
[2024-05-19] MEDS ORDERED: LORA-269 PO (11:05)
[2024-05-19] MEDS ORDERED: MULT-1085 PO (11:05)
[2024-05-23] MEDS ORDERED: CEFU250T95 PO (16:14)
== END 2024-04-09 18:13 | disposition home or self-care (01) ==
LOC: ER 15:45
DX: F10.239 Alcohol dependence with withdrawal, unspecified (principal); E78.00 Pure hypercholesterolemia, unspecified; I10 Essential (primary) hypertension; E11.9 Type 2 diabetes mellitus without complications; F31.9 Bipolar disorder, unspecified; Z98.890 Other specified postprocedural states; Z88.1 Allergy status to other antibiotic agents; Z79.899 Other long term (current) drug therapy
CPT/HCPCS: 36415; 80053; 83735; 85025; 99284

== ENCOUNTER 2024-04-12 17:59 | Emergency (ER) | payer MEDICARE ==
[~2024-04-12] VITALS: Ht 180.3 cm; Wt 86.4 kg
[~2024-04-12 17:59] MED LIST changes: +DIAZ5TAB22 PO
[2024-04-12 18:51] LABS: BASOPHILS % (AUTO) 0.7 % (0-1); EOSINOPHILS % (AUTO) 0.4 % (0-6); HEMATOCRIT 41.8 % (42.0-52.0); HEMOGLOBIN 13.5 g/dl (14.0-17.9); LYMPHOCYTES # (AUTO) 1.6 X10'3 (1.1-4.8); LYMPHOCYTES % (AUTO) 26.1 % (21-51); MEAN CORPUSCULAR HEMOGLOBIN 31.3 PG (27.0-31.0); MEAN CORPUSCULAR HGB CONC 32.4 g/dL (33.0-36.5); MEAN CORPUSCULAR VOLUME 96.8 FL (78-98); MEAN PLATELET VOLUME 7.6 FL (7.4-10.4); MONOCYTES # (AUTO) 0.6 X10'3 (0-0.9); MONOCYTES % (AUTO) 9.5 % (2-12); NEUTROPHILS # (AUTO) 3.8 X10'3 (1.8-7.7); NEUTROPHILS % (AUTO) 63.3 % (42-75); PLATELET COUNT 278 X10'3 (140-440); RED BLOOD COUNT 4.32 X10'6 (4.70-6.10); RED CELL DISTRIBUTION WIDTH 15.9 % (11.5-14.5)
[2024-04-12 19:10] LABS: ALBUMIN 3.4 G/DL (3.4-5.0); ANION GAP 12 (8-16); BLOOD UREA NITROGEN 13 MG/DL (7-18); BUN/CREATININE RATIO 14.9 (10.0-20.0); CALCIUM 9.5 MG/DL (8.5-10.1); CHLORIDE 108 MMOL/L (99-107); CREATININE 0.87 MG/DL (0.60-1.10); ETHANOL 62 MG/DL (<10); GLUCOSE 86 MG/DL (70-104); SODIUM 142 MMOL/L (135-145); THYROID STIMULATING HORMONE 2.59 ulU/ml (0.34-4.50); TOTAL CARBON DIOXIDE 22.2 MMOL/L (24-32); eCRCL 75 ML/MIN; eGFR 85 ML/MIN
[2024-04-12] MEDS: LORazepam 2 mg/ml vial IM ONE (20:21)
[2024-04-12] MEDS: haloperidol lactate 5mg/ml inj IM ONE (20:21)
[2024-04-12] MEDS: metoclopramide 10mg tablet PO ONE (20:43)
[2024-04-12] MEDS ORDERED: FOLI1TAB27 PO (22:40)
[2024-04-12] MEDS ORDERED: THIA50TA10 PO (22:40)
[2024-04-12] MEDS ORDERED: ONDA-243 PO (22:43)
[2024-04-12] MEDS ORDERED: DIAZ5TAB5 PO (22:44)
[2024-04-12] MEDS ORDERED: ondansetron 4mg rapidly disintigrating tab PO PRN (22:55)
[2024-04-12] MEDS: OLANZapine 2.5MG tablet PO ONE (23:11)
[2024-04-12] MEDS: mirtazapine 15mg tablet PO ONE (23:11)
[2024-04-12] MEDS: traZODone 150mg tablet PO ONE (23:11)
[2024-04-12] MEDS: diazepam 5mg tablet PO PRN (23:51)
[2024-04-12] MEDS: naltrexone 50mg tablet PO ONE (23:57)
[2024-04-13 03:01] LABS: BILIRUBIN,URINE NEGATIVE (Neg); CLARITY,URINE CLEAR (Clear); COLOR,URINE YELLOW (Yellow); GLUCOSE, URINE NEGATIVE (Neg); KETONES,URINE NEGATIVE (Neg); LEUKOCYTE ESTERASE ,URINE NEGATIVE (Neg); NITRITES, URINE NEGATIVE (Neg); OCCULT BLOOD,URINE NEGATIVE (Neg); PROTEIN,URINE NEGATIVE (Neg); UROBILINOGEN,URINE 0.2 E.U/dL (0.2-1.0)
[2024-04-13 03:04] LABS: UA COLLECTION TYPE CLN CATCH MIDSTREAM
[2024-04-13 03:09] LABS: URINE AMPHETAMINE SCREEN NEGATIVE (Neg); URINE BARBITUATE SCREEN NEGATIVE (Neg); URINE BENZODIAZEPINES SCREEN POSITIVE (Neg); URINE CANNABINOID SCREEN NEGATIVE (Neg); URINE COCAINE SCREEN NEGATIVE (Neg); URINE METHADONE SCREEN NEGATIVE (Neg); URINE OPIATE SCREEN NEGATIVE (Neg); URINE PHENCYCLIDINE SCREEN NEGATIVE (Neg)
[2024-04-13] MEDS: pantoprazole 40mg Tablet.DR PO SCH (08:10)
[2024-04-13] MEDS: metoprolol succinate 25mg (24-HOUR) SR. Tablet PO SCH (08:11)
[2024-04-13] MEDS: venlafaxine XR 75mg capsule (Q24H) PO SCH (08:11)
[2024-04-13] MEDS: lisinopril 10 MG tablet PO SCH (08:11)
[2024-04-13 08:50] VITALS: BP 122/81; PULSE 79; RESP 18; TEMP 97.7; O2SAT 100
[2024-04-13] MEDS ORDERED: mirtazapine 15mg tablet PO SCH (21:00)
[2024-04-13] MEDS ORDERED: traZODone 150mg tablet PO SCH (21:00)
[2024-04-13] MEDS ORDERED: naltrexone 50mg tablet PO SCH (21:00)
[2024-04-13] MEDS ORDERED: OLANZapine 2.5MG tablet PO SCH (21:00)
== END 2024-04-13 08:55 | disposition home or self-care (01) ==
LOC: ER 18:00
DX: R45.851 Suicidal ideations (principal); E78.00 Pure hypercholesterolemia, unspecified; I10 Essential (primary) hypertension; E11.9 Type 2 diabetes mellitus without complications; F31.9 Bipolar disorder, unspecified; F10.90 Alcohol use, unspecified, uncomplicated; Z88.1 Allergy status to other antibiotic agents; Z79.899 Other long term (current) drug therapy; Z85.89 Personal history of malignant neoplasm of other organs and systems; Z20.822 Contact with and (suspected) exposure to COVID-19
CPT/HCPCS: 36415; 80048; 80305; 81003; 84443; 85025; 87811; 96372; 99285; G0480; J1630; J2060; 80320

== ENCOUNTER 2024-05-09 08:19 | Emergency (ER) | payer MEDICARE ==
[~2024-05-09] VITALS: Ht 170.2 cm; Wt 75.0 kg
[~2024-05-09 08:19] MED LIST changes: -DIAZ5TAB22 PO; +DIAZ5TAB5 PO; -FOLI1TAB27 PO; -MULT-25 PO; -ONDA-243; +ONDA-243 PO; -THIA50TA10 PO
[2024-05-09 08:45] LABS: HEMOGLOBIN 14.1 g/dl (14.0-17.9); MEAN PLATELET VOLUME 7.7 FL (7.4-10.4); MONOCYTES # (AUTO) 0.4 X10'3 (0-0.9); NEUTROPHILS # (AUTO) 5.6 X10'3 (1.8-7.7); WHITE BLOOD COUNT 7.3 X10'3 (4.5-11.0)
[2024-05-09 08:48] LABS: BASOPHILS % (AUTO) 0.3 % (0-1); EOSINOPHILS % (AUTO) 0.1 % (0-6); HEMATOCRIT 43.2 % (42.0-52.0); LYMPHOCYTES # (AUTO) 1.3 X10'3 (1.1-4.8); LYMPHOCYTES % (AUTO) 17.4 % (21-51); MEAN CORPUSCULAR HEMOGLOBIN 31.1 PG (27.0-31.0); MEAN CORPUSCULAR HGB CONC 32.7 g/dL (33.0-36.5); MEAN CORPUSCULAR VOLUME 95.3 FL (78-98); MONOCYTES % (AUTO) 5.4 % (2-12); NEUTROPHILS % (AUTO) 76.8 % (42-75); PLATELET COUNT 226 X10'3 (140-440); RED BLOOD COUNT 4.54 X10'6 (4.70-6.10); RED CELL DISTRIBUTION WIDTH 16.5 % (11.5-14.5)
[2024-05-09 09:12] LABS: ALANINE AMINOTRANSFERASE 45 U/L (12-78); ALBUMIN 3.9 G/DL (3.4-5.0); ALBUMIN/GLOBULIN RATIO 1.1 (1.1-1.5); ALKALINE PHOSPHATASE 121 IU/L (46-116); ANION GAP 13 (8-16); ASPARTATE AMINO TRANSFERASE 55 U/L (10-37); BILIRUBIN,TOTAL 0.8 MG/DL (0.1-1.0); BLOOD UREA NITROGEN 16 MG/DL (7-18); CALCIUM 9.4 MG/DL (8.5-10.1); CHLORIDE 103 MMOL/L (99-107); CREATININE 0.84 MG/DL (0.60-1.10); GLUCOSE 82 MG/DL (70-104); POTASSIUM 3.7 MMOL/L (3.5-5.1); SODIUM 138 MMOL/L (135-145); TOTAL CARBON DIOXIDE 22.5 MMOL/L (24-32); TOTAL PROTEIN 7.6 G/DL (6.4-8.2); eCRCL 68 ML/MIN; eGFR 88 ML/MIN
[2024-05-09] MEDS: thiamine 100mg/ml 2ml inj. IM ONE (09:19)
[2024-05-09] MEDS: LORazepam 2 mg/ml vial IV ONE ×2 (09:19→10:07)
[2024-05-09 09:20] LABS: ETHANOL 62 MG/DL (<10); LIPASE 88 U/L (16-77); PRO BRAIN NATRIURETIC PEPTIDE 69 PG/ML (0-450)
[2024-05-09] MEDS: normal saline 1000ml 1,000 ML IV ONE (09:29)
[2024-05-09] MEDS: ondansetron/PF 4mg/2ml inj IV ONE (10:14)
[2024-05-09 10:23] LABS: BILIRUBIN,URINE NEGATIVE (Neg); CLARITY,URINE CLEAR (Clear); COLOR,URINE YELLOW (Yellow); GLUCOSE, URINE NEGATIVE (Neg); KETONES,URINE 15 mg/dl (Neg); LEUKOCYTE ESTERASE ,URINE NEGATIVE (Neg); NITRITES, URINE NEGATIVE (Neg); OCCULT BLOOD,URINE TRACE-INTACT (Neg); PROTEIN,URINE TRACE mg/dl (Neg)
[2024-05-09 10:26] LABS: UA COLLECTION TYPE CLN CATCH MIDSTREAM
[2024-05-09 10:41] LABS: AMORPHOUS URATES 2+; BACTERIA,URINE 2+ /HPF (Neg); MUCUS STRANDS MODERATE /LPF (Neg); RBC,URINE 0-2 /HPF (0-2); SQUAMOUS EPITHELIAL CELL,UR NONE SEEN /LPF (FEW)
[2024-05-09] MEDS ORDERED: CIPR-260 PO (10:53)
[2024-05-09] MEDS ORDERED: NALT50TA5 PO (10:53)
[2024-05-09] MEDS ORDERED: CEFD300C3 PO (10:53)
[2024-05-09] MEDS ORDERED: CHLO25CA10 PO (10:53)
[2024-05-09] MEDS: ciprofloxacin 250mg tablet PO ONE (11:00)
[2024-05-09] MEDS ORDERED: ONDA-243 PO (11:02)
[2024-05-09 11:19] VITALS: BP 154/100; PULSE 87; RESP 20; TEMP 98.8; O2SAT 94
== END 2024-05-09 11:15 | disposition home or self-care (01) ==
LOC: ER 08:19
DX: F10.229 Alcohol dependence with intoxication, unspecified (principal); F10.239 Alcohol dependence with withdrawal, unspecified; N39.0 Urinary tract infection, site not specified; E78.00 Pure hypercholesterolemia, unspecified; I10 Essential (primary) hypertension; E11.9 Type 2 diabetes mellitus without complications; F31.9 Bipolar disorder, unspecified; Z88.1 Allergy status to other antibiotic agents; Z79.1 Long term (current) use of non-steroidal anti-inflammatories (NSAID); Z79.899 Other long term (current) drug therapy; Y90.9 Presence of alcohol in blood, level not specified
CPT/HCPCS: 36415; 80053; 81001; 83690; 83880; 84484; 85025; 87077; 87088; 87186; 93005; 96361; 96372; 96374; 96375; 99284; G0480; J2060; J2405; J3411; J7030; 80320

== ENCOUNTER 2024-06-03 08:47 | Emergency (ER) | payer MEDICARE ==
[~2024-06-03] VITALS: Ht 172.7 cm; Wt 82.0 kg
[~2024-06-03 08:47] MED LIST changes: +ACAM333T8 PO; -DIAZ5TAB5 PO; +FOLI1TAB27 PO; +HYDR-3686 PO; +LITH150C8 PO; +LORA-269 PO; +METO-292 PO; +MULT-1085 PO; -ONDA-243 PO; +PARO-153 PO; +THIA100T73 PO
[2024-06-03] MEDS ORDERED: thiamine 100mg tablet PO SCH (10:10)
[2024-06-03 10:46] LABS: BASOPHILS % (AUTO) 0.7 % (0-1); EOSINOPHILS # (AUTO) 0.1 X10'3 (0-0.9); EOSINOPHILS % (AUTO) 1.5 % (0-6); HEMATOCRIT 34.5 % (42.0-52.0); HEMOGLOBIN 11.3 g/dl (14.0-17.9); LYMPHOCYTES # (AUTO) 1.2 X10'3 (1.1-4.8); LYMPHOCYTES % (AUTO) 25.2 % (21-51); MEAN CORPUSCULAR HGB CONC 32.7 g/dL (33.0-36.5); MEAN CORPUSCULAR VOLUME 97.7 FL (78-98); MEAN PLATELET VOLUME 7.5 FL (7.4-10.4); MONOCYTES # (AUTO) 0.5 X10'3 (0-0.9); MONOCYTES % (AUTO) 10.2 % (2-12); NEUTROPHILS % (AUTO) 62.4 % (42-75); PLATELET COUNT 252 X10'3 (140-440); RED BLOOD COUNT 3.53 X10'6 (4.70-6.10); RED CELL DISTRIBUTION WIDTH 17.7 % (11.5-14.5); WHITE BLOOD COUNT 4.9 X10'3 (4.5-11.0)
[2024-06-03 10:49] LABS: ALBUMIN 3.1 G/DL (3.4-5.0); ANION GAP 6 (8-16); BLOOD UREA NITROGEN 21 MG/DL (7-18); BUN/CREATININE RATIO 21.6 (10.0-20.0); CALCIUM 8.6 MG/DL (8.5-10.1); CHLORIDE 109 MMOL/L (99-107); CREATININE 0.97 MG/DL (0.60-1.10); ETHANOL 57 MG/DL (<10); GLUCOSE 88 MG/DL (70-104); SODIUM 141 MMOL/L (135-145); TOTAL CARBON DIOXIDE 26.1 MMOL/L (24-32); eCRCL 61 ML/MIN; eGFR 75 ML/MIN
[2024-06-03] MEDS: thiamine 100mg tablet PO ONE (11:04)
[2024-06-03] MEDS: folic acid 1mg tablet PO STA (11:04)
[2024-06-03] MEDS: normal saline 1000ML IV soln IVB ONE (11:05)
[2024-06-03] MEDS: multivitamins, therapeutics tablet PO ONE (11:05)
[2024-06-03] MEDS: LORazepam 2 mg/ml vial IM ONE ×2 (13:00→21:53)
[2024-06-03 13:37] LABS: BILIRUBIN,URINE NEGATIVE (Neg); CLARITY,URINE CLEAR (Clear); COLOR,URINE YELLOW (Yellow); GLUCOSE, URINE NEGATIVE (Neg); KETONES,URINE NEGATIVE (Neg); LEUKOCYTE ESTERASE ,URINE NEGATIVE (Neg); NITRITES, URINE NEGATIVE (Neg); OCCULT BLOOD,URINE NEGATIVE (Neg); PROTEIN,URINE NEGATIVE (Neg); UROBILINOGEN,URINE 0.2 E.U/dL (0.2-1.0)
[2024-06-03 13:42] LABS: UA COLLECTION TYPE VOIDED
[2024-06-03 13:45] LABS: URINE AMPHETAMINE SCREEN NEGATIVE (Neg); URINE BARBITUATE SCREEN NEGATIVE (Neg); URINE BENZODIAZEPINES SCREEN NEGATIVE (Neg); URINE CANNABINOID SCREEN NEGATIVE (Neg); URINE COCAINE SCREEN NEGATIVE (Neg); URINE METHADONE SCREEN NEGATIVE (Neg); URINE OPIATE SCREEN NEGATIVE (Neg); URINE PHENCYCLIDINE SCREEN NEGATIVE (Neg)
[2024-06-03] MEDS: thiamine 100mg/ml 2ml inj. IV ONE (18:30)
[2024-06-03] MEDS: normal saline 1000ml 1,000 ML IV ONE (18:30)
[2024-06-03] MEDS: folic acid 1mg/0.2ml inj IV ONE (18:30)
[2024-06-03] MEDS ORDERED: traZODone 150mg tablet PO PRN (18:50)
[2024-06-03] MEDS: LORazepam 1 MG tablet PO PRN (18:57)
[2024-06-03] MEDS: metoclopramide 10mg tablet PO PRN (18:57)
[2024-06-03] MEDS: mirtazapine 15mg tablet PO SCH (20:08)
[2024-06-03] MEDS: OLANZapine 2.5MG tablet PO SCH (20:08)
[2024-06-03] MEDS: lithium carbonate 150mg capsule PO SCH (20:09)
[2024-06-03 20:34] LABS: ETHANOL < 10 MG/DL (<10)
[2024-06-03] MEDS: haloperidol lactate 5mg/ml inj IM ONE (21:53)
[2024-06-03] MEDS: diphenhydrAMINE 50 mg/ml inj IM ONE (21:53)
[2024-06-03] MEDS: ondansetron/PF 4mg/2ml inj IM ONE (22:00)
[2024-06-04] MEDS: lisinopril 10 MG tablet PO SCH (08:00)
[2024-06-04] MEDS: naltrexone 50mg tablet PO SCH (08:00)
[2024-06-04] MEDS: multivitamins, therapeutics tablet PO SCH (08:00)
[2024-06-04] MEDS: metoprolol succinate 25mg (24-HOUR) SR. Tablet PO SCH (08:00)
[2024-06-04] MEDS: venlafaxine XR 75mg capsule (Q24H) PO SCH (08:00)
[2024-06-04] MEDS: PARoxetine 10mg tablet PO SCH (08:00)
[2024-06-04 09:11] VITALS: BP 114/73; PULSE 67; RESP 15; TEMP 98.3; O2SAT 99
[2024-06-04] MEDS: ondansetron 4mg rapidly disintigrating tab PO ONE (10:22)
[2024-06-04] MEDS: hydrOXYzine 25 MG tablet PO PRN (10:23)
[2024-06-04] MEDS: pantoprazole 40mg Tablet.DR PO SCH (10:24)
[2024-06-04] MEDS: thiamine 100mg tablet PO SCH (10:24)
[2024-06-04] MEDS: folic acid 1mg tablet PO SCH (10:25)
[2024-06-04] MEDS: LORazepam 1 MG tablet PO PRN (10:27)
== END 2024-06-04 11:15 | disposition home or self-care (01) ==
LOC: ER 08:47
DX: F32.A Depression, unspecified (principal); R45.851 Suicidal ideations; E78.00 Pure hypercholesterolemia, unspecified; E11.9 Type 2 diabetes mellitus without complications; I10 Essential (primary) hypertension; F10.90 Alcohol use, unspecified, uncomplicated; Z85.89 Personal history of malignant neoplasm of other organs and systems; Z20.822 Contact with and (suspected) exposure to COVID-19; Z88.1 Allergy status to other antibiotic agents; Z79.899 Other long term (current) drug therapy
CPT/HCPCS: 36415; 80048; 80305; 81003; 84443; 85025; 87811; 96361; 96372; 96374; 99285; G0480; J1200; J1630; J2060; J2405; J3490; J7030; Q0177; 80320

== ENCOUNTER 2024-07-07 17:18 | Emergency (ER) | payer MEDICARE ==
[~2024-07-07] VITALS: Ht 180.3 cm; Wt 78.0 kg
[~2024-07-07 17:18] MED LIST changes: -HYDR-3686 PO; -LISI10TA27 PO; -LITH150C8 PO; -LORA-269 PO; -METO-292 PO; -MULT-1085 PO; +MULT-25 PO; -OLAN2.5T3 PO; -VENL150T3 PO
[2024-07-07 18:26] LABS: BASOPHILS # (AUTO) 0.1 X10'3 (0-0.2); BASOPHILS % (AUTO) 0.5 % (0-1); EOSINOPHILS % (AUTO) 0 % (0-6); HEMATOCRIT 36.7 % (42.0-52.0); HEMOGLOBIN 11.9 g/dl (14.0-17.9); LYMPHOCYTES # (AUTO) 1.6 X10'3 (1.1-4.8); LYMPHOCYTES % (AUTO) 14.2 % (21-51); MEAN CORPUSCULAR HEMOGLOBIN 31.2 PG (27.0-31.0); MEAN CORPUSCULAR HGB CONC 32.3 g/dL (33.0-36.5); MEAN CORPUSCULAR VOLUME 96.6 FL (78-98); MEAN PLATELET VOLUME 8.6 FL (7.4-10.4); MONOCYTES # (AUTO) 0.7 X10'3 (0-0.9); MONOCYTES % (AUTO) 6.4 % (2-12); NEUTROPHILS # (AUTO) 8.7 X10'3 (1.8-7.7); NEUTROPHILS % (AUTO) 78.9 % (42-75); PLATELET COUNT 211 X10'3 (140-440); RED CELL DISTRIBUTION WIDTH 17.1 % (11.5-14.5); WHITE BLOOD COUNT 11.1 X10'3 (4.5-11.0)
[2024-07-07 18:52] LABS: ALBUMIN 3.4 G/DL (3.4-5.0); ANION GAP 11 (8-16); BLOOD UREA NITROGEN 17 MG/DL (7-18); BUN/CREATININE RATIO 17.7 (10.0-20.0); CALCIUM 9.2 MG/DL (8.5-10.1); CHLORIDE 109 MMOL/L (99-107); CREATININE 0.96 MG/DL (0.60-1.10); ETHANOL 105 MG/DL (<10); GLUCOSE 80 MG/DL (70-104); SODIUM 144 MMOL/L (135-145); THYROID STIMULATING HORMONE 2.32 ulU/ml (0.34-4.50); TOTAL CARBON DIOXIDE 23.9 MMOL/L (24-32); eGFR 76 ML/MIN
[2024-07-07] MEDS: LORazepam 1 MG tablet PO PRN (19:28)
[2024-07-07] MEDS: ziprasidone IM 20mg inj **IM only IM ONE (19:52)
[2024-07-07 20:08] LABS: BILIRUBIN,URINE NEGATIVE (Neg); CLARITY,URINE CLEAR (Clear); COLOR,URINE YELLOW (Yellow); GLUCOSE, URINE NEGATIVE (Neg); KETONES,URINE NEGATIVE (Neg); LEUKOCYTE ESTERASE ,URINE NEGATIVE (Neg); NITRITES, URINE NEGATIVE (Neg); OCCULT BLOOD,URINE NEGATIVE (Neg); PH,URINE 5.5 (4.8-8.0); PROTEIN,URINE NEGATIVE (Neg); UROBILINOGEN,URINE 0.2 E.U/dL (0.2-1.0)
[2024-07-07 20:14] LABS: UA COLLECTION TYPE VOIDED
[2024-07-07 20:37] LABS: URINE AMPHETAMINE SCREEN NEGATIVE (Neg); URINE BARBITUATE SCREEN NEGATIVE (Neg); URINE BENZODIAZEPINES SCREEN NEGATIVE (Neg); URINE CANNABINOID SCREEN NEGATIVE (Neg); URINE COCAINE SCREEN NEGATIVE (Neg); URINE METHADONE SCREEN NEGATIVE (Neg); URINE OPIATE SCREEN NEGATIVE (Neg); URINE PHENCYCLIDINE SCREEN NEGATIVE (Neg)
[2024-07-07] MEDS: haloperidol lactate 5mg/ml inj IM STA (21:09)
[2024-07-08] MEDS ORDERED: traZODone 150mg tablet PO PRN (05:05)
[2024-07-08] MEDS: ACAMPROSATE CALCIUM 333 MG PO SCH (08:00)
[2024-07-08] MEDS: PARoxetine 10mg tablet PO SCH (09:05)
[2024-07-08] MEDS: pantoprazole 40mg Tablet.DR PO SCH (09:06)
[2024-07-08] MEDS: metoprolol succinate 25mg (24-HOUR) SR. Tablet PO SCH (09:06)
[2024-07-08] MEDS: folic acid 1mg tablet PO SCH (09:06)
[2024-07-08] MEDS: diazepam 5mg tablet PO ONE (10:03)
[2024-07-08] MEDS: ondansetron 4mg rapidly disintigrating tab PO ONE (10:04)
[2024-07-08 10:08] VITALS: BP 165/96; PULSE 98; RESP 16; TEMP 98.1; O2SAT 98
[2024-07-08] MEDS ORDERED: mirtazapine 15mg tablet PO SCH (21:00)
== END 2024-07-08 10:10 | disposition home or self-care (01) ==
LOC: ER 17:19
DX: R45.851 Suicidal ideations (principal); F10.129 Alcohol abuse with intoxication, unspecified; E78.00 Pure hypercholesterolemia, unspecified; I10 Essential (primary) hypertension; E11.9 Type 2 diabetes mellitus without complications; F31.9 Bipolar disorder, unspecified; Z20.822 Contact with and (suspected) exposure to COVID-19; Z88.1 Allergy status to other antibiotic agents; Z79.899 Other long term (current) drug therapy; Y90.5 Blood alcohol level of 100-119 mg/100 ml
CPT/HCPCS: 36415; 80048; 80305; 81003; 84443; 85025; 87811; 96372; 99284; G0480; J1630; J3486; 80320

== ENCOUNTER 2024-07-21 18:52 | Emergency (ER) | payer MEDICARE ==
[~2024-07-21] VITALS: Ht 180.3 cm; Wt 84.1 kg
[~2024-07-21 18:52] MED LIST changes: -NALT50TA5 PO; -THIA100T73 PO
[2024-07-21 18:54] VITALS: BP 130/82; PULSE 89; RESP 18; TEMP 99.5; O2SAT 95
== END 2024-07-21 20:38 | disposition left against medical advice (07) ==
LOC: ER 18:53
DX: R07.81 Pleurodynia (principal); Z53.21 Procedure and treatment not carried out due to patient leaving prior to being seen by health care provider; Z88.1 Allergy status to other antibiotic agents; W18.39XA Other fall on same level, initial encounter; Y93.89 Activity, other specified; Y92.89 Other specified places as the place of occurrence of the external cause; Y99.8 Other external cause status
CPT/HCPCS: 71046

== ENCOUNTER 2024-07-22 08:50 | Inpatient (IN) | payer MEDICARE ==
[~2024-07-22] VITALS: Ht 177.8 cm; Wt 84.0 kg
[2024-07-22] MEDS ORDERED: iohexol 300mg/ml 100ml inj. ONE (10:04)
[2024-07-22 10:10] LABS: ALANINE AMINOTRANSFERASE 21 U/L (12-78); ALBUMIN 2.6 G/DL (3.4-5.0); ALBUMIN/GLOBULIN RATIO 0.7 (1.1-1.5); ALKALINE PHOSPHATASE 103 IU/L (46-116); ANION GAP 8 (8-16); ASPARTATE AMINO TRANSFERASE 15 U/L (10-37); BILIRUBIN,TOTAL 0.3 MG/DL (0.1-1.0); BLOOD UREA NITROGEN 16 MG/DL (7-18); BUN/CREATININE RATIO 19.5 (10.0-20.0); CALCIUM 8.9 MG/DL (8.5-10.1); CHLORIDE 106 MMOL/L (99-107); CREATININE 0.82 MG/DL (0.60-1.10); GLUCOSE 105 MG/DL (70-104); POTASSIUM 3.5 MMOL/L (3.5-5.1); SODIUM 140 MMOL/L (135-145); TOTAL CARBON DIOXIDE 26.1 MMOL/L (24-32); TOTAL PROTEIN 6.4 G/DL (6.4-8.2); eCRCL 77 ML/MIN; eGFR > 90 ML/MIN
[2024-07-22 10:11] LABS: BASOPHILS % (AUTO) 0.4 % (0-1); EOSINOPHILS # (AUTO) 0.1 X10'3 (0-0.9); EOSINOPHILS % (AUTO) 1.5 % (0-6); LYMPHOCYTES # (AUTO) 0.7 X10'3 (1.1-4.8); LYMPHOCYTES % (AUTO) 15.5 % (21-51); MEAN CORPUSCULAR HEMOGLOBIN 32.3 PG (27.0-31.0); MEAN CORPUSCULAR HGB CONC 33.3 g/dL (33.0-36.5); MEAN PLATELET VOLUME 7.1 FL (7.4-10.4); MONOCYTES # (AUTO) 0.6 X10'3 (0-0.9); MONOCYTES % (AUTO) 13.1 % (2-12); NEUTROPHILS # (AUTO) 3.2 X10'3 (1.8-7.7); NEUTROPHILS % (AUTO) 69.5 % (42-75); PLATELET COUNT 262 X10'3 (140-440); RED CELL DISTRIBUTION WIDTH 17.5 % (11.5-14.5); WHITE BLOOD COUNT 4.7 X10'3 (4.5-11.0)
[2024-07-22 10:37] LABS: BILIRUBIN,URINE NEGATIVE (Neg); CLARITY,URINE CLEAR (Clear); GLUCOSE, URINE NEGATIVE (Neg); KETONES,URINE NEGATIVE (Neg); LEUKOCYTE ESTERASE ,URINE NEGATIVE (Neg); NITRITES, URINE NEGATIVE (Neg); OCCULT BLOOD,URINE TRACE-INTACT (Neg); PROTEIN,URINE NEGATIVE (Neg); UROBILINOGEN,URINE 0.2 E.U/dL (0.2-1.0)
[2024-07-22 10:39] LABS: COLOR,URINE YELLOW (Yellow); UA COLLECTION TYPE OTHER
[2024-07-22 10:48] LABS: BACTERIA,URINE NONE SEEN /HPF (Neg); RBC,URINE 0-2 /HPF (0-2); SQUAMOUS EPITHELIAL CELL,UR FEW /LPF (FEW); WBC,URINE 0-4 /HPF (0-4)
[2024-07-22] MEDS ORDERED: mag hydrox/Alum hydrox/simeth 30ml oral suspension PO PRN (14:00)
[2024-07-22] MEDS ORDERED: potassium Cl 20 mEq SR tablet PO PRN ×2 (14:00)
[2024-07-22] MEDS ORDERED: magnesium sulf-water 4G/100mL 100 ML IV PRN (14:00)
[2024-07-22] MEDS ORDERED: magnesium sulf-water 2g/50mL 50 ML IV PRN (14:00)
[2024-07-22] MEDS ORDERED: potassium Cl 40MEQ/1/2NS 520ml 520 ML IV PRN (14:00)
[2024-07-22] MEDS ORDERED: magnesium Cl slow-release 64mg tablet PO PRN (14:00)
[2024-07-22] MEDS ORDERED: azithromycin/NS 500mg/250ml 250 ML IV SCH (14:10)
[2024-07-22 14:43] LABS: CHOL/HDL RATIO 2.3 (0.00-4.99); CHOLESTEROL 116 MG/DL (0-200); FREE T4 (FREE THYROXINE) 1.05 NG/DL (0.73-1.40); HDL CHOLESTEROL 50 MG/DL (35-60); LDL CHOLESTEROL 52 MG/DL (50-100); THYROID STIMULATING HORMONE 1.91 ulU/ml (0.34-4.50); TRIGLYCERIDES 72 MG/DL (20-135)
[2024-07-22 14:49] LABS: HEMOGLOBIN A1C 5.4 % (4.5-6.2)
[2024-07-22 15:11] LABS: APTT 29 SECONDS (22-32); PROTHROMBIN TIME 10.4 SECONDS (9.0-12.0)
[2024-07-22] MEDS: LORazepam 2 mg/ml vial IV PRN (15:25)
[2024-07-22] MEDS: CefTRIAXone/D5W-Rocephin 1gm 50 ML IV SCH (15:28)
[2024-07-22 15:37] LABS: URINE AMPHETAMINE SCREEN NEGATIVE (Neg); URINE BARBITUATE SCREEN NEGATIVE (Neg); URINE BENZODIAZEPINES SCREEN POSITIVE (Neg); URINE CANNABINOID SCREEN NEGATIVE (Neg); URINE COCAINE SCREEN NEGATIVE (Neg); URINE METHADONE SCREEN NEGATIVE (Neg); URINE OPIATE SCREEN NEGATIVE (Neg); URINE PHENCYCLIDINE SCREEN NEGATIVE (Neg)
[2024-07-22] MEDS: morphine 2 MG/ML inj. syringe IV PRN (17:17)
[2024-07-22] MEDS: acetaminophen 325mg tablet PO SCH (17:21)
[2024-07-22] MEDS: aspirin 81mg tab.chew PO ONE (18:53)
[2024-07-22] MEDS: enoxaparin 40mg/0.4ml syringe SQ SCH (19:15)
[2024-07-22] MEDS: docusate sod 100mg capsule PO SCH (19:18)
[2024-07-22] MEDS: K and/or MAG REPLACEMENT MC SCH (20:00)
[2024-07-22] MEDS: thiamine 100mg/ml 2ml inj. IV SCH (21:02)
[2024-07-23 03:55] LABS: BASOPHILS % (AUTO) 0.9 % (0-1); EOSINOPHILS # (AUTO) 0.1 X10'3 (0-0.9); EOSINOPHILS % (AUTO) 2.5 % (0-6); HEMATOCRIT 32.4 % (42.0-52.0); HEMOGLOBIN 10.7 g/dl (14.0-17.9); LYMPHOCYTES # (AUTO) 1.3 X10'3 (1.1-4.8); LYMPHOCYTES % (AUTO) 30.9 % (21-51); MEAN CORPUSCULAR HEMOGLOBIN 31.7 PG (27.0-31.0); MEAN CORPUSCULAR HGB CONC 32.9 g/dL (33.0-36.5); MEAN CORPUSCULAR VOLUME 96.4 FL (78-98); MEAN PLATELET VOLUME 6.8 FL (7.4-10.4); MONOCYTES # (AUTO) 0.4 X10'3 (0-0.9); MONOCYTES % (AUTO) 10.1 % (2-12); NEUTROPHILS # (AUTO) 2.3 X10'3 (1.8-7.7); NEUTROPHILS % (AUTO) 55.6 % (42-75); PLATELET COUNT 272 X10'3 (140-440); RED BLOOD COUNT 3.36 X10'6 (4.70-6.10); RED CELL DISTRIBUTION WIDTH 17.5 % (11.5-14.5); WHITE BLOOD COUNT 4.1 X10'3 (4.5-11.0)
[2024-07-23 04:08] LABS: APTT 30 SECONDS (22-32); PROTHROMBIN TIME 10.7 SECONDS (9.0-12.0)
[2024-07-23 04:11] LABS: ALANINE AMINOTRANSFERASE 19 U/L (12-78); ALBUMIN 2.5 G/DL (3.4-5.0); ALBUMIN/GLOBULIN RATIO 0.7 (1.1-1.5); ALKALINE PHOSPHATASE 95 IU/L (46-116); AMYLASE 35 U/L (25-115); ANION GAP 4 (8-16); ASPARTATE AMINO TRANSFERASE 13 U/L (10-37); BILIRUBIN,TOTAL 0.4 MG/DL (0.1-1.0); BLOOD UREA NITROGEN 13 MG/DL (7-18); BUN/CREATININE RATIO 15.5 (10.0-20.0); CALCIUM 8.6 MG/DL (8.5-10.1); CHLORIDE 107 MMOL/L (99-107); CREATININE 0.84 MG/DL (0.60-1.10); GLUCOSE 101 MG/DL (70-104); LIPASE 25 U/L (16-77); MAGNESIUM 1.9 MG/DL (1.5-2.4); PHOSPHORUS 3.5 MG/DL (2.3-4.5); POTASSIUM 3.7 MMOL/L (3.5-5.1); SODIUM 140 MMOL/L (135-145); TOTAL CARBON DIOXIDE 28.6 MMOL/L (24-32); TOTAL PROTEIN 6.3 G/DL (6.4-8.2); eCRCL 75 ML/MIN; eGFR 88 ML/MIN
[2024-07-23 04:45] VITALS: BP 138/87; PULSE 64; RESP 14; TEMP 97.5; O2SAT 95
[2024-07-23] MEDS: HYDROcodone/acetaminophen 5mg/325mg tablet PO PRN (05:17)
[2024-07-23 08:00] VITALS: RESP 16
[2024-07-23] MEDS: aspirin 81mg, enteric-coated 1 TAB TABLET.DR PO SCH (08:19)
[2024-07-23] MEDS: multivitamins, therapeutics tablet PO SCH (08:20)
[2024-07-23] MEDS: folic acid 1mg/0.2ml inj IV SCH (08:21)
[2024-07-23] MEDS: lisinopril 10 MG tablet PO SCH (08:22)
[2024-07-23 11:25] VITALS: BP 108/54; PULSE 61; RESP 14; TEMP 97.4; O2SAT 95
[2024-07-23] MEDS: ACAMPROSATE CALCIUM 333 MG PO SCH (13:00)
[2024-07-23] MEDS: ondansetron/PF 4mg/2ml inj IV PRN (14:09)
[2024-07-23 18:00] VITALS: BP 121/64; PULSE 60; RESP 15; TEMP 97.6; O2SAT 95
[2024-07-23] MEDS: azithromycin/NS 500mg/250ml 250 ML IV SCH (18:36)
[2024-07-23 20:00] VITALS: RESP 15
[2024-07-23] MEDS: mirtazapine 15mg tablet PO SCH (20:56)
[2024-07-23 22:00] VITALS: BP 153/88; PULSE 83; RESP 15; TEMP 97.7; O2SAT 95
[2024-07-24] VITALS (10 sets, daily range): BP systolic 99–137; BP diastolic 61–93; PULSE 69–80; RESP 14–22; TEMP 97.6–98.1; O2SAT 92–98
[2024-07-24 06:53] LABS: BASOPHILS % (AUTO) 0.5 % (0-1); EOSINOPHILS # (AUTO) 0.1 X10'3 (0-0.9); EOSINOPHILS % (AUTO) 1.2 % (0-6); HEMATOCRIT 35.8 % (42.0-52.0); HEMOGLOBIN 11.8 g/dl (14.0-17.9); LYMPHOCYTES # (AUTO) 1.4 X10'3 (1.1-4.8); MEAN CORPUSCULAR HEMOGLOBIN 31.9 PG (27.0-31.0); MEAN CORPUSCULAR VOLUME 96.5 FL (78-98); MEAN PLATELET VOLUME 7.2 FL (7.4-10.4); MONOCYTES # (AUTO) 0.5 X10'3 (0-0.9); MONOCYTES % (AUTO) 8.4 % (2-12); NEUTROPHILS # (AUTO) 3.8 X10'3 (1.8-7.7); NEUTROPHILS % (AUTO) 64.9 % (42-75); PLATELET COUNT 370 X10'3 (140-440); RED BLOOD COUNT 3.71 X10'6 (4.70-6.10); RED CELL DISTRIBUTION WIDTH 16.9 % (11.5-14.5); WHITE BLOOD COUNT 5.8 X10'3 (4.5-11.0)
[2024-07-24 07:00] LABS: APTT 30 SECONDS (22-32); PROTHROMBIN TIME 10.5 SECONDS (9.0-12.0)
[2024-07-24 07:47] LABS: ALANINE AMINOTRANSFERASE 21 U/L (12-78); ALBUMIN 2.8 G/DL (3.4-5.0); ALBUMIN/GLOBULIN RATIO 0.7 (1.1-1.5); ALKALINE PHOSPHATASE 105 IU/L (46-116); AMYLASE 37 U/L (25-115); ANION GAP 6 (8-16); ASPARTATE AMINO TRANSFERASE 15 U/L (10-37); BILIRUBIN,TOTAL 0.3 MG/DL (0.1-1.0); BLOOD UREA NITROGEN 11 MG/DL (7-18); BUN/CREATININE RATIO 11.6 (10.0-20.0); CALCIUM 9.2 MG/DL (8.5-10.1); CHLORIDE 106 MMOL/L (99-107); CREATININE 0.95 MG/DL (0.60-1.10); GLUCOSE 86 MG/DL (70-104); LIPASE 31 U/L (16-77); MAGNESIUM 2.1 MG/DL (1.5-2.4); POTASSIUM 3.7 MMOL/L (3.5-5.1); SODIUM 141 MMOL/L (135-145); TOTAL CARBON DIOXIDE 29.4 MMOL/L (24-32); TOTAL PROTEIN 7.1 G/DL (6.4-8.2); eCRCL 66 ML/MIN; eGFR 77 ML/MIN
[2024-07-24] MEDS ORDERED: metoprolol succinate 25mg (24-HOUR) SR. Tablet PO SCH (08:00)
[2024-07-24] MEDS: multivitamins, therapeutics tablet PO SCH (08:00)
[2024-07-24] MEDS: pantoprazole 40mg Tablet.DR PO SCH (08:11)
[2024-07-24] MEDS: traZODone 150mg tablet PO PRN (21:10)
[2024-07-25 06:00] VITALS: BP 134/104; PULSE 67; RESP 16; TEMP 97.8; O2SAT 96
[2024-07-25 08:00] VITALS: RESP 18; O2SAT 95
[2024-07-25 09:22] LABS: BASOPHILS % (AUTO) 1.1 % (0-1); EOSINOPHILS # (AUTO) 0.1 X10'3 (0-0.9); EOSINOPHILS % (AUTO) 2.5 % (0-6); HEMATOCRIT 38.5 % (42.0-52.0); HEMOGLOBIN 12.4 g/dl (14.0-17.9); LYMPHOCYTES # (AUTO) 1.4 X10'3 (1.1-4.8); MEAN CORPUSCULAR HEMOGLOBIN 31.4 PG (27.0-31.0); MEAN CORPUSCULAR HGB CONC 32.2 g/dL (33.0-36.5); MEAN CORPUSCULAR VOLUME 97.6 FL (78-98); MEAN PLATELET VOLUME 6.9 FL (7.4-10.4); MONOCYTES # (AUTO) 0.3 X10'3 (0-0.9); MONOCYTES % (AUTO) 8.6 % (2-12); NEUTROPHILS # (AUTO) 1.7 X10'3 (1.8-7.7); NEUTROPHILS % (AUTO) 47.8 % (42-75); PLATELET COUNT 355 X10'3 (140-440); RED BLOOD COUNT 3.94 X10'6 (4.70-6.10); RED CELL DISTRIBUTION WIDTH 17.4 % (11.5-14.5); WHITE BLOOD COUNT 3.5 X10'3 (4.5-11.0)
[2024-07-25 09:33] LABS: APTT 30 SECONDS (22-32); PROTHROMBIN TIME 10.8 SECONDS (9.0-12.0)
[2024-07-25 10:00] VITALS: BP 92/59; PULSE 71; RESP 18; TEMP 97.4; O2SAT 95
[2024-07-25 10:36] LABS: ALANINE AMINOTRANSFERASE 16 U/L (12-78); ALBUMIN 2.9 G/DL (3.4-5.0); ALBUMIN/GLOBULIN RATIO 0.6 (1.1-1.5); ALKALINE PHOSPHATASE 108 IU/L (46-116); AMYLASE 34 U/L (25-115); ANION GAP 4 (8-16); ASPARTATE AMINO TRANSFERASE 13 U/L (10-37); BILIRUBIN,TOTAL 0.2 MG/DL (0.1-1.0); BLOOD UREA NITROGEN 10 MG/DL (7-18); BUN/CREATININE RATIO 9.3 (10.0-20.0); CALCIUM 9.6 MG/DL (8.5-10.1); CHLORIDE 108 MMOL/L (99-107); CREATININE 1.08 MG/DL (0.60-1.10); GLUCOSE 105 MG/DL (70-104); LIPASE 22 U/L (16-77); MAGNESIUM 2.3 MG/DL (1.5-2.4); PHOSPHORUS 3.6 MG/DL (2.3-4.5); POTASSIUM 3.8 MMOL/L (3.5-5.1); SODIUM 142 MMOL/L (135-145); TOTAL CARBON DIOXIDE 29.6 MMOL/L (24-32); TOTAL PROTEIN 7.4 G/DL (6.4-8.2); eCRCL 58 ML/MIN; eGFR 66 ML/MIN
[2024-07-25] MEDS ORDERED: LISI10TA27 PO (11:00)
[2024-07-25] MEDS ORDERED: thiamine tablet PO (11:00)
[2024-07-25] MEDS ORDERED: LACT1CAP26 PO (11:00)
[2024-07-25] MEDS ORDERED: ASPI-1071 PO (11:00)
[2024-07-25] MEDS ORDERED: CEFD300C3 PO (11:00)
[2024-07-25] MEDS: magnesium hydroxide 30ml (MOM) UD suspension PO PRN (11:26)
[2024-07-26] MEDS ORDERED: thiamine 100mg tablet PO SCH (08:00)
[2024-07-27] MEDS ORDERED: folic acid 1mg tablet PO SCH (08:00)
== END 2024-07-25 13:19 | disposition home or self-care (01) | DRG 178 ==
LOC: ER 08:51 → ED HOLD 13:37 → EDBEDREQ 07-23 02:57 → ORTHO 4S 07-23 04:38
PROVIDERS: ADMIT Internal Medicine; ATTEND Internal Medicine
DX: J69.0 Pneumonitis due to inhalation of food and vomit (principal); F10.239 Alcohol dependence with withdrawal, unspecified; S22.32XA Fracture of one rib, left side, initial encounter for closed fracture; J98.11 Atelectasis; I48.92 Unspecified atrial flutter; J90 Pleural effusion, not elsewhere classified; E11.9 Type 2 diabetes mellitus without complications; E78.00 Pure hypercholesterolemia, unspecified; I10 Essential (primary) hypertension; Z88.1 Allergy status to other antibiotic agents; F31.9 Bipolar disorder, unspecified; X58.XXXA Exposure to other specified factors, initial encounter; Y93.89 Activity, other specified; Y92.89 Other specified places as the place of occurrence of the external cause; Y99.8 Other external cause status
CPT/HCPCS: 36415; 70450; 71045; 71046; 74177; 80053; 80061; 80305; 80320; 81001; 82150; 82948; 83036; 83690; 83735; 84100; 84145; 84439; 84443; 85025; 85610; 85651; 85730; 87040; 87081; 87502; 87503; 87811; 92508; 92616; 93005; 93308; 97116; 97161; 97530; 99291; A4615; A6258; A6590; C1758; G0378; J0456; J0696; J1650; J2060; J2270; J2405; J3411; J3490; J7030; J7040; J7050; Q9967

== ENCOUNTER 2024-08-03 16:29 | Emergency (ER) | payer MEDICARE ==
[~2024-08-03] VITALS: Ht 175.3 cm; Wt 75.0 kg
[~2024-08-03 16:29] MED LIST changes: +ASPI-1071 PO; +LACT1CAP26 PO; +LISI10TA27 PO; -METO-395 PO; -PARO-153 PO; +thiamine tablet PO
[2024-08-03 16:35] VITALS: BP 169/91; PULSE 95; RESP 18; TEMP 98.5; O2SAT 99
== END 2024-08-03 21:57 | disposition left against medical advice (07) ==
LOC: ER 16:30
DX: R11.10 Vomiting, unspecified (principal); Z53.21 Procedure and treatment not carried out due to patient leaving prior to being seen by health care provider; Z88.1 Allergy status to other antibiotic agents

== ENCOUNTER 2024-08-06 14:06 | Emergency (ER) | payer MEDICARE ==
[~2024-08-06] VITALS: Ht 180.3 cm; Wt 76.2 kg
[2024-08-06 14:11] VITALS: TEMP 98.1
[2024-08-06 14:28] VITALS: BP 154/89; PULSE 76; RESP 18; O2SAT 97
[2024-08-06 16:21] LABS: BILIRUBIN,URINE NEGATIVE (Neg); CLARITY,URINE CLEAR (Clear); COLOR,URINE YELLOW (Yellow); GLUCOSE, URINE NEGATIVE (Neg); KETONES,URINE NEGATIVE (Neg); LEUKOCYTE ESTERASE ,URINE NEGATIVE (Neg); NITRITES, URINE NEGATIVE (Neg); OCCULT BLOOD,URINE TRACE-INTACT (Neg); PH,URINE 5.5 (4.8-8.0); PROTEIN,URINE NEGATIVE (Neg); UROBILINOGEN,URINE 0.2 E.U/dL (0.2-1.0)
[2024-08-06 16:26] LABS: UA COLLECTION TYPE VOIDED
[2024-08-06 16:27] LABS: RBC,URINE 0-2 /HPF (0-2); WBC,URINE 0-4 /HPF (0-4)
[2024-08-06 16:28] LABS: BACTERIA,URINE NONE SEEN /HPF (Neg); MUCUS STRANDS NONE SEEN /LPF (Neg); SQUAMOUS EPITHELIAL CELL,UR NONE SEEN /LPF (FEW)
[2024-08-06 16:34] LABS: BASOPHILS % (AUTO) 0.5 % (0-1); EOSINOPHILS % (AUTO) 0.2 % (0-6); HEMATOCRIT 34.2 % (42.0-52.0); HEMOGLOBIN 11.2 g/dl (14.0-17.9); LYMPHOCYTES % (AUTO) 20.2 % (21-51); MEAN CORPUSCULAR HEMOGLOBIN 31.5 PG (27.0-31.0); MEAN CORPUSCULAR HGB CONC 32.7 g/dL (33.0-36.5); MEAN CORPUSCULAR VOLUME 96.2 FL (78-98); MEAN PLATELET VOLUME 7.4 FL (7.4-10.4); MONOCYTES # (AUTO) 0.2 X10'3 (0-0.9); MONOCYTES % (AUTO) 4.9 % (2-12); NEUTROPHILS # (AUTO) 3.6 X10'3 (1.8-7.7); NEUTROPHILS % (AUTO) 74.2 % (42-75); PLATELET COUNT 246 X10'3 (140-440); RED BLOOD COUNT 3.55 X10'6 (4.70-6.10); RED CELL DISTRIBUTION WIDTH 17.4 % (11.5-14.5); WHITE BLOOD COUNT 4.8 X10'3 (4.5-11.0)
[2024-08-06 16:36] LABS: ALANINE AMINOTRANSFERASE 18 U/L (12-78); ALBUMIN 3.4 G/DL (3.4-5.0); ALBUMIN/GLOBULIN RATIO 0.9 (1.1-1.5); ALKALINE PHOSPHATASE 125 IU/L (46-116); ANION GAP 6 (8-16); ASPARTATE AMINO TRANSFERASE 13 U/L (10-37); BILIRUBIN,TOTAL 0.3 MG/DL (0.1-1.0); BLOOD UREA NITROGEN 19 MG/DL (7-18); BUN/CREATININE RATIO 19.6 (10.0-20.0); CALCIUM 8.8 MG/DL (8.5-10.1); CHLORIDE 108 MMOL/L (99-107); CREATININE 0.97 MG/DL (0.60-1.10); GLUCOSE 94 MG/DL (70-104); SODIUM 141 MMOL/L (135-145); TOTAL CARBON DIOXIDE 26.9 MMOL/L (24-32); TOTAL PROTEIN 7.4 G/DL (6.4-8.2); eCRCL 67 ML/MIN; eGFR 75 ML/MIN
[2024-08-06 16:40] LABS: URINE AMPHETAMINE SCREEN NEGATIVE (Neg); URINE BARBITUATE SCREEN NEGATIVE (Neg); URINE BENZODIAZEPINES SCREEN POSITIVE (Neg); URINE CANNABINOID SCREEN NEGATIVE (Neg); URINE COCAINE SCREEN NEGATIVE (Neg); URINE METHADONE SCREEN NEGATIVE (Neg); URINE OPIATE SCREEN NEGATIVE (Neg); URINE PHENCYCLIDINE SCREEN NEGATIVE (Neg)
[2024-08-06 16:44] LABS: ETHANOL 46 MG/DL (<10); SALICYLATE 0.4 MG/DL (4.0-20.0); THYROID STIMULATING HORMONE 1.37 ulU/ml (0.34-4.50)
[2024-08-06 16:45] LABS: ACETAMINOPHEN < 2.0 UG/ML (10-30)
== END 2024-08-06 17:26 | disposition home or self-care (01) ==
LOC: ER 14:07
DX: F10.20 Alcohol dependence, uncomplicated (principal); R45.851 Suicidal ideations; E78.00 Pure hypercholesterolemia, unspecified; F31.9 Bipolar disorder, unspecified; I10 Essential (primary) hypertension; E11.9 Type 2 diabetes mellitus without complications; Z20.822 Contact with and (suspected) exposure to COVID-19; Z88.1 Allergy status to other antibiotic agents; Z98.890 Other specified postprocedural states; Z79.82 Long term (current) use of aspirin; Y90.2 Blood alcohol level of 40-59 mg/100 ml
CPT/HCPCS: 36415; 80053; 80305; 80329; 81001; 84443; 85025; 87811; 99284; G0480; 80320

== ENCOUNTER 2024-08-11 16:40 | Emergency (ER) | payer MEDICARE ==
[2024-08-11] MEDS: LORazepam 2 mg/ml vial IM ONE (18:05)
[2024-08-11] MEDS: LORazepam 2 mg/ml vial ONE (18:11)
[2024-08-11 19:19] LABS: BASOPHILS % (AUTO) 0.6 % (0-1); EOSINOPHILS % (AUTO) 0.4 % (0-6); HEMATOCRIT 35.7 % (42.0-52.0); HEMOGLOBIN 11.9 g/dl (14.0-17.9); LYMPHOCYTES # (AUTO) 0.8 X10'3 (1.1-4.8); LYMPHOCYTES % (AUTO) 16.7 % (21-51); MEAN CORPUSCULAR HEMOGLOBIN 32.1 PG (27.0-31.0); MEAN CORPUSCULAR HGB CONC 33.5 g/dL (33.0-36.5); MEAN CORPUSCULAR VOLUME 95.8 FL (78-98); MEAN PLATELET VOLUME 7.5 FL (7.4-10.4); MONOCYTES # (AUTO) 0.4 X10'3 (0-0.9); MONOCYTES % (AUTO) 8.5 % (2-12); NEUTROPHILS # (AUTO) 3.5 X10'3 (1.8-7.7); NEUTROPHILS % (AUTO) 73.8 % (42-75); PLATELET COUNT 204 X10'3 (140-440); RED BLOOD COUNT 3.72 X10'6 (4.70-6.10); RED CELL DISTRIBUTION WIDTH 16.8 % (11.5-14.5); WHITE BLOOD COUNT 4.8 X10'3 (4.5-11.0)
[2024-08-11] MEDS: ondansetron/PF 4mg/2ml inj IV ONE (19:25)
[2024-08-11] MEDS: normal saline 1000ml 1,000 ML IV ONE (19:25)
[2024-08-11 19:34] LABS: ALANINE AMINOTRANSFERASE 16 U/L (12-78); ALBUMIN 3.3 G/DL (3.4-5.0); ALBUMIN/GLOBULIN RATIO 0.9 (1.1-1.5); ALKALINE PHOSPHATASE 117 IU/L (46-116); ANION GAP 6 (8-16); ASPARTATE AMINO TRANSFERASE 11 U/L (10-37); BILIRUBIN,TOTAL 0.5 MG/DL (0.1-1.0); BLOOD UREA NITROGEN 13 MG/DL (7-18); BUN/CREATININE RATIO 15.7 (10.0-20.0); CALCIUM 9.3 MG/DL (8.5-10.1); CHLORIDE 107 MMOL/L (99-107); CREATININE 0.83 MG/DL (0.60-1.10); GLUCOSE 96 MG/DL (70-104); POTASSIUM 3.5 MMOL/L (3.5-5.1); SODIUM 140 MMOL/L (135-145); TOTAL CARBON DIOXIDE 26.9 MMOL/L (24-32); TOTAL PROTEIN 6.9 G/DL (6.4-8.2); eGFR 90 ML/MIN
[2024-08-11 19:38] LABS: ETHANOL < 10 MG/DL (<10); LIPASE 49 U/L (16-77)
[2024-08-12 00:05] VITALS: BP 145/90; PULSE 87; RESP 16; TEMP 98.4; O2SAT 100
== END 2024-08-12 00:07 | disposition home or self-care (01) ==
LOC: ER 16:41
DX: R11.0 Nausea (principal); I10 Essential (primary) hypertension; E11.9 Type 2 diabetes mellitus without complications; F31.9 Bipolar disorder, unspecified; E78.00 Pure hypercholesterolemia, unspecified; F10.20 Alcohol dependence, uncomplicated; Z88.1 Allergy status to other antibiotic agents; Z98.890 Other specified postprocedural states; Z79.82 Long term (current) use of aspirin
CPT/HCPCS: 36415; 80053; 83690; 84484; 85025; 93005; 96361; 96372; 96374; 99284; G0480; J2060; J2405; J7030; 80320

== ENCOUNTER 2025-05-22 03:42 | Emergency (ER) | payer MEDICARE ==
[~2025-05-22] VITALS: Ht 180.3 cm; Wt 70.2 kg
[~2025-05-22 03:42] MED LIST changes: -ACAM333T8 PO; -ASPI-1071 PO; +DIVA250T8 PO; +HYDR-3964 PO; -LACT1CAP26 PO; -LISI10TA27 PO; +MELA3TAB39 PO; -MIRT-142 PO; +OMEG1CAP46 PO; +THIA100T77 PO; +TRAZ-251 PO; -TRAZ150T78 PO; -thiamine tablet PO
[2025-05-22 04:56] LABS: MEAN PLATELET VOLUME 8.3 FL (7.4-10.4); RED CELL DISTRIBUTION WIDTH 14.6 % (11.5-14.5)
--- NOTE | 2025-05-22 05:07 | Physician Documentation ---
History of Present Illness ~ Chief Complaint: Mental Health Eval Stated Complaint: SI Time Seen by MD: 05:06 Primary Medical Doctor: marya STANFORD 80-year-old male, history of depression who presents with suicidal thoughts The patient reports a long history of depression and thoughts of self-harm. He has been thinking about cutting his wrists. He tells me that he has been drinking alcohol daily. When asked him if he has alcohol withdrawal he tells me he does not know because he never stops drinking. He does report pain in his stomach, points to the epigastric region. He tells me it feels like a stomach acid problem. He does not take an antacid medication. No other acute medical concerns. Per chart review, the patient was recently admitted to the hospital related to severe alcohol abuse and suicidal ideation. He has a history of suicide attempts in the past. Medication Reconciliation Allergies: Coded Allergies: cephalexin (Verified Adverse Reaction, Intermediate, rash, 08/11/24) TOLERATED ROCEPHIN IN THE PAST; 2021 Scheduled Folic Acid* (Folic Acid*), 1 TAB PO DAILY, (Reported) Multivitamin with Folic Acid (Thera Tablet), 1 TAB PO DAILY, (Reported) Pantoprazole Sodium (PROTONIX tablet), 1 TAB PO DAILY, (Reported) Thiamine HCl (B-1), 100 MG PO DAILY, (Reported) Discontinued Medications Acamprosate Calcium (Acamprosate Calcium), 2 TAB PO TID, (Reported) Divalproex Sodium (Divalproex Sodium Er), 250 MG PO HS Discontinued Reason: patient no longer taking Home Med List (No Home Medications), (Reported) Hydrocodone Bit/Acetaminophen (Hydrocodon-Acetaminophen 5-325), 1 TAB PO Q6H PRN for moderate or severe pain 4-10 Discontinued Reason: patient no longer taking Melatonin (Melatonin), 3 MG PO HS Discontinued Reason: patient no longer taking [place]-3 Fatty Acids/Fish Oil ([place] 3 1,000 mg Softgel), 3 CAP PO DAILY Discontinued Reason: patient no longer taking Trazodone HCl (Trazodone HCl), 100 MG PO HS Discontinued Reason: patient no longer taking Past Medical History Past Medical History: High Cholesterol, Hypertension, Pneumonia, Diabetes, *PSYCH*, Bipolar Past Surgical History: cancer surgery Patient History: (Cancer) Malignant carcinoid tumor FATHER, Onset:60 years & older FH: alcoholism FATHER Hypercholesterolemia MOTHER Alcohol Use: Alcoholic Drug Use: none Lives with: Spouse Lives In: Home Occupation: retired Review of Systems Psychiatric: Reports: depression, suicidal Physical Exam Vital Signs: Temperature: 98.6, Source: Temporal, Heart Rate: 86, Respiratory Rate: 16, BP: 155/89, Pulse Oximetry: 96, Weight: 70.200 Oxygen Flow Rate: 0 Physical Exam General: This is a older man who is lying quietly in bed Heart: Regular rate and rhythm, normal-appearing peripheral perfusion Lungs: normal work of breathing, normal oxygen saturation on room air Abdomen: Soft, nondistended. Mild discomfort on palpation in the epigastric region only, otherwise nontender, no rebound or guarding Neuro: Alert and oriented Psychiatric: Flattened affect, endorses thoughts of self-harm Progress Results/Orders Results/Orders Completed Orders - BENITA SALMERON MD Ondansetron Disint. Tablet (Zofran Odt T (05/22/25 08:15) Sulfamethox/Trimetho. Ds Tab (Septra Ds (05/22/25 20:00) Sulfamethox/Trimetho. Ds Tab (Septra Ds (05/22/25 09:00) Sulfamethox/Trimetho. Ds Tab (Septra Ds (05/22/25 09:00) Nitroglycerin 500mcg/5ml D5w (Nitroglyce (05/22/25 08:59) Phenobarbital Inj (Phenobarbital Inj.) (05/22/25 10:26) Medications Received in ER Medications (Trade) Dose Ordered Sig/Georgie Route PRN Reason Start Time Stop Time Status Last Admin Dose Admin (Maalox oral suspension) 30 ml ONCE ONCE PO 05/22/25 05:35 05/22/25 05:36 DC 05/22/25 05:39 30 ML (Protonix) 40 mg BKF ONCE PO 05/22/25 07:30 05/22/25 07:31 DC 05/22/25 05:39 40 MG (Zofran ODT tablet) 4 mg ONCE ONCE PO 05/22/25 08:15 05/22/25 08:16 DC 05/22/25 08:19 4 MG (Septra DS tab) 1 tab ONCE ONCE PO 05/22/25 09:00 05/22/25 09:01 DC 05/22/25 09:12 1 TAB Phenobarbital Sodium 260 mg/ Sodium Chloride 100 ml @ 200 mls/hr ONCE STAT IV 05/22/25 10:26 05/22/25 10:55 DC 05/22/25 11:26 200 MLS/HR Vital Signs 05/22/25 05/22/25 04:13 05:17 Temp 98.6 Pulse 86 Resp 16 B/P (MAP) 155/89 Pulse Ox 96 O2 Flow Rate 0 Laboratory Tests Test 05/22/25 04:30 05/22/25 06:42 White Blood Count 5.8 Red Blood Count 3.73 L Hemoglobin 12.4 L Hematocrit 36.8 L Mean Corpuscular Volume 98.8 H Mean Corpuscular Hemoglobin 33.2 H Mean Corpuscular Hemoglobin Concent 33.6 Red Cell Distribution Width 14.6 H Platelet Count 181 Mean Platelet Volume 8.3 Neutrophils (%) (Auto) 70.7 Lymphocytes (%) (Auto) 20.2 L Monocytes (%) (Auto) 7.7 Eosinophils (%) (Auto) 0.8 Basophils (%) (Auto) 0.6 Neutrophils # (Auto) 4.1 Lymphocytes # (Auto) 1.2 Monocytes # (Auto) 0.4 Eosinophils # (Auto) 0.0 Basophils # (Auto) 0.0 CBC Comment Sodium Level 142 Potassium Level 3.8 Chloride Level 109 H Carbon Dioxide Level 24.7 Anion Gap 8 Blood Urea Nitrogen 12 Creatinine 0.58 L Estimated GFR/1.73 m2 > 90 BUN/Creatinine Ratio 20.7 H Glucose Level 84 Calcium Level 8.7 Albumin 3.3 L Thyroid Stimulating Hormone (TSH) 1.77 Chemistry Comments Ethyl Alcohol Level < 10 SARS-CoV-2 Antigen (Rapid) Negative Urine Specimen Description Non-specified Urine Color Yellow Urine Clarity Clear Urine pH 6.0 Urine Specific [place] >=1.030 Urine Protein Negative Urine Glucose (UA) Negative Urine Ketones 15 H Urine Occult Blood Small Urine Nitrite Negative Urine Bilirubin Negative Urine Urobilinogen 0.2 Urine Leukocyte Esterase Trace H Urine RBC 0-2 Urine WBC 10-20 H Urine Squamous Epithelial Cells Few Urine Bacteria 3+ Urine Mucus Moderate Volume Urine Centrifuged 10 ml Urine Comment Urine Opiates Screen Negative Urine Methadone Screen Negative Urine Fentanyl Screen Negative Urine Barbiturates Screen Negative Urine Phencyclidine Screen Negative Urine Amphetamines Screen Negative Urine Benzodiazepines Screen Negative Urine Cocaine Screen Negative Urine Cannabinoids Screen Negative Drug Screen Comment Re-Evaluation Re-Evaluation : Progress The patient is medically cleared for mental health evaluation Consults/PCP Consults/PCP : Additional Comment Mental health team consulted for evaluation Medical Decision Making Additional info obtained from: old records Findings Reviewed records from previous hospitalization this month Differential Dx:Considerations: Include: Alcohol abuse, Anxiety, Depression, Substance abuse, Suicidal Differential Diagnosis The patient presents with chronic depression with suicidal thoughts. He has a history of similar as well as history of suicide attempts. Here in the ED, he denies any physical self-harm or ingestion today. His only concern is for epigastric discomfort which seems most likely gastritis, possibly related to alcohol use. His mental screening labs are unremarkable. He is medically cleared for mental health evaluation. Departure Disposition: HOME / SELF CARE / HOMELESS Impression: Primary Impression: Suicidal ideation Additional Impression: Depression Condition: Stable Additional Instructions: Please follow-up as per Behavioral Health. Return here for worsening symptoms or new/unusual symptoms. Referrals: NO PRIMARY CARE PROVIDER (PCP) Signature Scribe Signature: na Attestation: na Addendum Pt signed out to me as part of their psychiatric ED evaluation. Pt resting well. Vital signs within expected ranges. Brief Physical Examination: Alert and appropriately oriented. No signs of respiratory distress. Able to ambulate and move all extremities. Medical evaluation does not indicate metabolic derangement. Awaiting final disposition. Though possibly present, patient's symptoms are more consistent with psychiatric concerns than syndromes related to recreational drug use. No ev idence of DT's while in the ED during my shift. Ambulating without difficulty. Speaking in full sentences. Easily arousable and interactive. Hemodynamically stable. The patient does have findings consistent with a urinary tract infection and I am starting him on Bactrim DS one b.i.d.. 10:25 a.m.: Patient is CIWA score is 14. I am starting him on phenobarbital. 12:39 p.m.: Behavioral Health feels the patient does not meet criteria for a hold. The patient wants to go home. I am going to discharge him as per Behavioral Health. OTILIA PACHECO MD May 22, 2025 05:07 BENITA SALMERON MD May 22, 2025 08:21
[2025-05-22 05:24] LABS: CREATININE 0.58 MG/DL (0.60-1.10); ETHANOL < 10 MG/DL (<10); TOTAL CARBON DIOXIDE 24.7 MMOL/L (24-32); eCRCL 103 ML/MIN; eGFR > 90 ML/MIN
[2025-05-22] MEDS: pantoprazole 40mg Tablet.DR PO ONE (05:39)
[2025-05-22] MEDS: mag hydrox/Alum hydrox/simeth 30ml oral suspension PO ONE (05:39)
[2025-05-22 06:51] LABS: LEUKOCYTE ESTERASE ,URINE TRACE (Neg); NITRITES, URINE NEGATIVE (Neg); OCCULT BLOOD,URINE SMALL (Neg)
[2025-05-22 07:12] LABS: UA COLLECTION TYPE NON-SPECIFIED
[2025-05-22 07:14] LABS: MUCUS STRANDS MODERATE /LPF (Neg); SQUAMOUS EPITHELIAL CELL,UR FEW /LPF (FEW)
[2025-05-22 07:31] LABS: URINE AMPHETAMINE SCREEN NEGATIVE (Neg); URINE BARBITUATE SCREEN NEGATIVE (Neg); URINE BENZODIAZEPINES SCREEN NEGATIVE (Neg); URINE CANNABINOID SCREEN NEGATIVE (Neg); URINE COCAINE SCREEN NEGATIVE (Neg); URINE METHADONE SCREEN NEGATIVE (Neg); URINE OPIATE SCREEN NEGATIVE (Neg); URINE PHENCYCLIDINE SCREEN NEGATIVE (Neg)
[2025-05-22] MEDS: ondansetron 4mg rapidly disintigrating tab PO ONE (08:19)
[2025-05-22] MEDS ORDERED: nitroGLYCERIN 500mcg/5mL D5W 5 ML IV ONE (08:59)
[2025-05-22] MEDS ORDERED: sulfamethoxazole/trimethoprim DS (800/160mg) tablet PO SCH ×2 (09:00→20:00)
[2025-05-22] MEDS: sulfamethoxazole/trimethoprim DS (800/160mg) tablet PO ONE (09:12)
[2025-05-22 13:06] VITALS: BP 155/89; PULSE 86; TEMP 98.6; O2SAT 96
[2025-05-22 13:19] VITALS: RESP 16
== END 2025-05-22 13:21 | disposition home or self-care (01) ==
LOC: ER 03:42
DX: R45.851 Suicidal ideations (principal); I10 Essential (primary) hypertension; F31.9 Bipolar disorder, unspecified; E78.00 Pure hypercholesterolemia, unspecified; E11.9 Type 2 diabetes mellitus without complications; Z88.1 Allergy status to other antibiotic agents; Z79.899 Other long term (current) drug therapy; Z20.822 Contact with and (suspected) exposure to COVID-19
CPT/HCPCS: 36415; 80048; 80305; 81001; 84443; 85025; 87811; 96365; 99285; C2617; G0480; J2560; J3490; 80320

== ENCOUNTER 2025-06-26 11:41 | Emergency (ER) | payer MEDICARE ==
[~2025-06-26] VITALS: Ht 177.8 cm; Wt 71.1 kg
[~2025-06-26 11:41] MED LIST changes: -DIVA250T8 PO; -HYDR-3964 PO; -MELA3TAB39 PO; -OMEG1CAP46 PO; -TRAZ-251 PO
--- NOTE | 2025-06-26 12:03 | Physician Documentation ---
History of Present Illness ~ Chief Complaint: See Chief Complaint Stated Complaint: SI Time Seen by MD: 11:55 Primary Medical Doctor: marya Mode of Arrival: EMS, Stretcher HPI 80-year-old male presents to the ED from [facility]. According to the EMS report the patient has a history of alcohol abuse and today he was reporting suicide ideation and threatening to we will his wheelchair out into the street. This precipitated the EMS call. Patient is forthcoming about this although he is A&O x2. When asked why he was verbalizing these thoughts, he states I just do not want to live anymore. Denies ever previously harming himself Day of Onset: Jun 26, 2025 Medication Reconciliation Allergies: Coded Allergies: cephalexin (Verified Adverse Reaction, Intermediate, rash, 06/26/25) TOLERATED ROCEPHIN IN THE PAST; 2021 Scheduled Folic Acid* (Folic Acid*), 1 TAB PO DAILY, (Reported) Multivitamin with Folic Acid (Thera Tablet), 1 TAB PO DAILY, (Reported) Pantoprazole Sodium (PROTONIX tablet), 1 TAB PO DAILY, (Reported) Thiamine HCl (B-1), 100 MG PO DAILY, (Reported) Past Medical History Past Medical History: High Cholesterol, Hypertension, Pneumonia, Diabetes, *PSYCH*, Bipolar Past Surgical History: cancer surgery Patient History: (Cancer) Malignant carcinoid tumor FATHER, Onset:60 years & older FH: alcoholism FATHER Hypercholesterolemia MOTHER Alcohol Use: Alcoholic Drug Use: none Lives with: Spouse Lives In: Home Occupation: retired Physical Exam Vital Signs: Temperature: 98.6, Source: Oral, Heart Rate: 4, Respiratory Rate: 16, BP: 132/85, Pulse Oximetry: 97, Weight: 71.100 Oxygen Flow Rate: 0 Physical Exam General: Alert, no apparent distress. Respiratory: Lungs clear, no respiratory distress. Cardiovascular: Regular rate and rhythm, no murmurs. Gastrointestinal: Soft, nontender, nondistended. Bowels sounds present. Extremities: Normal range of motion, no deformity. Neurologic: A&O x2 Psychiatric: Flat affect Skin: Normal color, warm and dry. No edema, no ecchymosis. Progress Results/Orders Results/Orders Orders - XANDER PETTIT PASTRY BAKER Accucheck (06/26/25 12:04) Chest,Single View (06/26/25 12:12) Monitor (06/26/25 12:04) Saline Lock (06/26/25 12:04) * Npo Until Passed Bedside Swa (06/26/25 12:04) Nursing Swallow Screen (06/26/25 12:04) 1799.11 (06/26/25 ) Covid19 Binax Poc Result Entry (06/26/25 12:20) Completed Orders - XANDER PETTIT PASTRY BAKER Cbc/Diff (06/26/25 12:04) Chest,Single View (06/26/25 12:12) Haloperidol Lact. (Haldol) (06/26/25 12:10) Hs Troponin I W Calculations (06/26/25 12:45) BMP (06/26/25 12:45) Ua W/Microscopic, Cult If Ind (06/26/25 12:38) Ondansetron Disint. Tablet (Zofran Odt T (06/26/25 13:15) Medications Received in ER Medications (Trade) Dose Ordered Sig/Georgie Route PRN Reason Start Time Stop Time Status Last Admin Dose Admin (Zofran ODT tablet) 4 mg ONCE ONCE PO 06/26/25 13:15 06/26/25 13:16 DC 06/26/25 13:37 4 MG Vital Signs 06/26/25 06/26/25 06/26/25 11:45 11:52 13:57 Temp 98.6 Pulse 4 Resp 16 16 18 B/P (MAP) 132/85 Pulse Ox 97 O2 Flow Rate 0 Laboratory Tests Test 06/26/25 12:21 06/26/25 12:24 06/26/25 12:38 06/26/25 12:41 SARS-CoV-2 Antigen (Rapid) Negative White Blood Count 5.1 Red Blood Count 3.95 L Hemoglobin 13.2 L Hematocrit 39.8 L Mean Corpuscular Volume 100.7 H Mean Corpuscular Hemoglobin 33.5 H Mean Corpuscular Hemoglobin Concent 33.2 Red Cell Distribution Width 15.2 H Platelet Count 196 Mean Platelet Volume 8.1 Neutrophils (%) (Auto) 65.0 Lymphocytes (%) (Auto) 23.7 Monocytes (%) (Auto) 10.0 Eosinophils (%) (Auto) 0.6 Basophils (%) (Auto) 0.7 Neutrophils # (Auto) 3.3 Lymphocytes # (Auto) 1.2 Monocytes # (Auto) 0.5 Eosinophils # (Auto) 0.0 Basophils # (Auto) 0.0 CBC Comment Chemistry Comments Urine Specimen Description Straight cath Urine Color Yellow Urine Clarity Cloudy Urine pH 7.5 Urine Specific Amity 1.015 Urine Protein Negative Urine Glucose (UA) Negative Urine Ketones Negative Urine Occult Blood Negative Urine Nitrite Negative Urine Bilirubin Negative Urine Urobilinogen 0.2 Urine Leukocyte Esterase Negative Urine RBC None seen Urine WBC 0-4 Urine Squamous Epithelial Cells None seen Urine Amorphous Phosphates 4+ Urine Bacteria Few Urine Mucus None seen Urine Culture Indicated Not ind Volume Urine Centrifuged 10 ml Urine Comment Glucometer 91 Test 06/26/25 13:03 Sodium Level 141 Potassium Level 4.4 Chloride Level 109 H Carbon Dioxide Level 25.7 Anion Gap 6 L Blood Urea Nitrogen 14 Creatinine 0.98 Estimated GFR/1.73 m2 74 BUN/Creatinine Ratio 14.3 Glucose Level 91 Calcium Level 9.0 Troponin I High Sensitivity 5 Albumin 2.9 L Chemistry Comments Medical Decision Making Additional information obtaine: old records Findings Patient is medically cleared for mental health evaluation Differential Dx:Considerations: Include: Alcohol abuse, Anxiety, Bipolar disorder, Conversion disorder, Depression, Encephaloathy, Homicidal, Panic disorder, Personality disorder, Schizophrenia, Substance abuse, Suicidal, Other Departure Impression: Primary Impression: SUICIDAL IDEATION Additional Impression: Suicidal ideation Additional Instructions: Transfer orders for [facility]: At this time there is no evidence of an emergent medical condition that would preclude (admission/transfer) to a psychiatric unit via [facility] protocol for further psychiatric, as well as medical evaluation and treatment. At this time I have no reason to believe that transfer via [facility] protocol would have serious medical compromise in the patient's health. Referrals: NO PRIMARY CARE PROVIDER (PCP) Signature Scribe Signature: f Attestation: Scribed for Xander Pettit Vice President Of Instruction by Xander Acharya NP . 06/26/25 12:02 XANDER PETTIT NP Jun 26, 2025 12:03
[2025-06-26] MEDS: haloperidol lactate 5mg/ml inj IM ONE ×2 (12:10→21:08)
--- NOTE | 2025-06-26 12:43 | RADIOLOGY REPORT ---
CHEST RADIOGRAPH Indication: aloc Technique: Single frontal view of the chest was obtained COMPARISON: CT CTA CHEST ABDOMEN PELVIS W/ IV CONTRAST on DOS: 04/23/25, DI CHEST,SINGLE VIEW on DOS: 07/23/24, DI CHEST,SINGLE VIEW on DOS: 07/22/24, DI CHEST,TWO VIEWS on DOS: 07/21/24, DI CHEST,SINGLE VIEW on DOS: 06/15/24 FINDINGS: Lines and Tubes: None Lungs: Clear Pleura: No effusion. No pneumothorax. Cardiomediastinal contours: Unremarkable Bones: Unremarkable IMPRESSION: No acute disease.
[2025-06-26 12:47] LABS: LEUKOCYTE ESTERASE ,URINE NEGATIVE (Neg); NITRITES, URINE NEGATIVE (Neg); OCCULT BLOOD,URINE NEGATIVE (Neg)
[2025-06-26 12:48] LABS: MEAN PLATELET VOLUME 8.1 FL (7.4-10.4); RED CELL DISTRIBUTION WIDTH 15.2 % (11.5-14.5)
[2025-06-26 12:57] LABS: UA COLLECTION TYPE STRAIGHT CATH
[2025-06-26 13:00] LABS: AMORPHOUS PHOSPHATES 4+; MUCUS STRANDS NONE SEEN /LPF (Neg); SQUAMOUS EPITHELIAL CELL,UR NONE SEEN /LPF (FEW)
[2025-06-26 13:37] LABS: CREATININE 0.98 MG/DL (0.60-1.10); TOTAL CARBON DIOXIDE 25.7 MMOL/L (24-32); eCRCL 61 ML/MIN; eGFR 74 ML/MIN
[2025-06-26] MEDS: ondansetron 4mg rapidly disintigrating tab PO ONE (13:37)
[2025-06-27 06:38] VITALS: BP 134/70; PULSE 70; RESP 18; TEMP 98.2; O2SAT 99
[2025-06-27] MEDS: pantoprazole 40mg Tablet.DR PO SCH (08:08)
[2025-06-27] MEDS: multivitamins, therapeutics tablet PO SCH (08:08)
== END 2025-06-27 12:37 ==
LOC: ER 11:42
DX: R45.851 Suicidal ideations (principal); E11.9 Type 2 diabetes mellitus without complications; E78.00 Pure hypercholesterolemia, unspecified; F31.9 Bipolar disorder, unspecified; I10 Essential (primary) hypertension; Z88.1 Allergy status to other antibiotic agents; Z20.822 Contact with and (suspected) exposure to COVID-19
CPT/HCPCS: 36415; 71045; 80048; 81001; 82948; 84484; 85025; 87811; 96372; 96374; 99285; A6590; C1758; J1200; J1630